=== PATIENT | male | born 1945 | race Caucasian/White ===

== ENCOUNTER 2018-08-28 14:59 | Emergency (ER) | payer MEDICARE, BC, SELFPAY ==
[2018-08-28 15:02] VITALS: BP 120/81; PULSE 78; PULSE 81; RESP 14; RESP 17; TEMP 36.7; O2SAT 96; BMI 34.8
--- NOTE | 2018-08-28 15:24 | RAD_ITS ---
STUDY: X-RAY - LEFT HAND, ATTENTION THIRD FINGER REASON FOR EXAM: Male, 73 years old. Laceration following injury. TECHNIQUE: 3 view(s) of the finger were obtained. COMPARISON: None. FINDINGS: Normal metacarpal head. Normal metacarpophalangeal joint. Normal proximal phalanx. Normal middle phalanx. Nondisplaced fracture at the tuft of the distal phalanx with overlying soft tissue swelling. Normal proximal interphalangeal joint. Normal distal interphalangeal joint. RAD/Finger(s) Min 2 Views IMPRESSION: Nondisplaced fracture at the tuft of the distal phalanx with overlying soft tissue swelling. Electronically Signed: Wilman Beaver, at 15:49 EDT , Service support ,
--- NOTE | 2018-08-28 15:34 | ED.DCSUM_ITS ---
- ER Visit Summary Date of Service: 08/28/18 Chief Complaint: Finger injury History of Present Illness: The patient is a 73 M who presents the emergency department for left middle finger injury. 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 He s tates the nail must of been partially removed from a Band-Aid. States it will not stop bleeding. He is unsure of his last tetanus (per his PCP it was 2010). Physical Examination: Afebrile vital signs stable Left middle finger shows the proximal half of the nail to still be in place and the cuticle to be stable. The distal half of the nail is gone. Is a very clean linear cut. There is nailbed laceration present. Test Results: Finger x-rays were obtained. This demonstrated a tuft fracture. Emergency Department Course and Treatment: Patient declined digital block or local lidocaine injection. The nailbed laceration was repaired using simple interrupted 5-0 Vicryl sutures. A total of 5 stitches were placed along the nailbed. He will be started on Keflex. Impression: 1. Open left middle finger distal phalanx fracture 2. Nailbed laceration with repair This note was generated with [employer] dictation software. It may contain incorrect words, spelling, and punctuation that were not noted in review of the chart prior to signing ED Disposition - Plan for ED Patient: Disposition: Home or Assisted Living Instructions: FRACTURE, Finger (Open), NAIL AVULSION, Partial Prescriptions: Cephalexin [Keflex] 500 mg PO Q6 #28 cap Prescription Printed Referrals: Sunitha Garrett MD [Primary Care Provider] - (in 2 weeks) Additional Instructions: Please leave this dressing on until Sunday. Then antibiotic ointment and keeping the wound clean and dry. Follow-up 2 weeks. Take all of the antibi otics.
[2018-08-28] MEDS: Diphth,Pertuss(Acell),Tet Vac 0.5 ML Vial IM (16:03)
[2018-08-28 16:20] VITALS: BP 108/96; PULSE 75; RESP 17
--- NOTE | 2018-08-28 16:20 | ED.RN ---
DISCHARGE INSTRUCTIONS GIVEN TO AND REVIEWED WITH PATIENT, PATIENT DENIES QUESTIONS OR CONCERNS AND VOICES UNDERSTANDING OF DISCHARGE INSTRUCTIONS. PT AMBULATES OUT OF ROOM WITHOUT DIFFICULTY.
== END 2018-08-28 16:21 | disposition home or self-care (01) ==
PROVIDERS: Emergency Provider Emergency Medicine; Family Provider Internal Medicine; PCP Internal Medicine
DX: S62.663B Nondisplaced fracture of distal phalanx of left middle finger, initial encounter for open fracture (principal); Z23 Encounter for immunization; W26.8XXA Contact with other sharp object(s), not elsewhere classified, initial encounter; Y93.89 Activity, other specified; Y92.008 Other place in unspecified non-institutional (private) residence as the place of occurrence of the external cause; Y99.8 Other external cause status
CPT/HCPCS: 11760; 73140; 90471; 90715; 99284

== ENCOUNTER → 2018-09-17 | Outpatient (CLI) | payer MEDICARE, BC, SELFPAY ==
[2018-08-28 15:02] VITALS: BMI 34.8
[2018-09-17 17:19] LABS: Absolute Lymphocyte Count 1.89 X10^3/uL (0.83-4.51); Absolute Neutrophil Count 5.3 X10^3/uL (2.0-7.7); Basophil# 0.04 X10^3/uL; Basophil% 0.5 % (0-1); Eosinophil# 0.26 X10^3/uL; Eosinophils% 3.1 % (0-5); Hematocrit 46.2 % (40-54); Hemoglobin 15.3 g/dL (13.0-16.5); Lymphocyte # 1.89 X10^3/ul (4.0); Lymphocyte % 22.7 % (19-41); Mean Corp Hgb Conc 33.1 g/dL (32-36); Mean Corpuscular Hgb 29.5 pg (27.0-32.0); Mean Platelet Vol. 10.7 fl (6.2-12.0); Monocyte# 0.76 X10^3/uL; Monocyte% 9.1 % (0-10); NRBC Flagged by Analyzer 0 % (0-5); Neutrophil # 5.32 X10^3/uL (2.7-7.7); Neutrophil % 63.9 % (47-70); Platelet Count 244 K/mm3 (150-450); RBC Distribution Width CV 13.6 % (11.6-14.6); RBC Distribution Width SD 44.5 fl (35.1-43.9); Red Blood Count 5.19 M/mm3 (4.6-6.2); White Blood Count 8.3 K/mm3 (4.4-11.0)
[2018-09-17 17:23] LABS: Erythrocyte Sedimentation Rate 16 mm/hr (0-20)
[2018-09-17 17:53] LABS: BNP,B-Type NATRIURETIC PEPTIDE 61.1 pg/mL (0-100)
[2018-09-17 19:37] LABS: ALB/GLOB Ratio 1.1 RATIO (0.9-2.4); AST(SGOT) 17 U/L (15-37); Alanine Aminotransfer ALT/SGPT 14 U/L (16-61); Albumin, Serum 3.5 g/dL (3.2-5.0); Alkaline Phosphatase 84 U/L (45-117); Anion Gap 7 (5-15); BUN 13 mg/dL (7-18); BUN/Creat Ratio 11.1 RATIO (10-20); CRP 4.91 mg/L (0.0-3.0); Calcium,Total 8.9 mg/dL (8.5-10.1); Chloride 108 mmol/L (98-107); Creatinine, Serum 1.17 mg/dL (0.70-1.30); EST Glomerular Filtration Rate 65 mL/min (>60); Est Glom Filt Rate - Afr Amer 79 mL/min (>60); Globulin 3.3 g/dL (2.2-4.2); Glucose 99 mg/dL (74-106); Potassium 4.2 mmol/L (3.5-5.1); Protein, Total 6.8 g/dL (6.4-8.2); Rheumatoid Factor < 10.0 IU/mL (<15); Sodium Level 140 mmol/L (136-145); Thyroid Stim Hormone (TSH) 1.12 uIU/mL (0.358-3.74); Uric Acid 5.1 mg/dL (3.5-7.2)
[2018-09-20 11:44] LABS: CCP IgG Antibodies 6 units (0-19)
== END | disposition home or self-care (01) ==
LOC: BFHLAB 14:53
PROVIDERS: Family Provider Family Medicine; PCP Family Medicine; Visit Provider Family Medicine
DX: R06.00 Dyspnea, unspecified (principal); M10.9 Gout, unspecified; M06.9 Rheumatoid arthritis, unspecified; R53.83 Other fatigue
CPT/HCPCS: 36415; 80053; 83880; 84443; 84550; 85025; 85652; 86140; 86200; 86431

== ENCOUNTER 2018-12-23 16:31 | Emergency (ER) | payer MEDICARE, BC, SELFPAY ==
[2018-12-23 16:32] VITALS: BP 145/75; PULSE 69; RESP 19; TEMP 36.9; O2SAT 96; BMI 35.9
--- NOTE | 2018-12-23 16:34 | EKG12_ITS ---
Test Reason : SOB DIZZY Blood Pressure : / mmHG Vent. Rate : 066 BPM Atrial Rate : 066 BPM P-R Int : 238 ms QRS Dur : 132 ms QT Int : 440 ms P-R-T Axes : 007 072 003 degrees QTc Int : 461 ms Sinus rhythm with 1st degree A-V block Non-specific intra-ventricular conduction block Abnormal ECG Confirmed by LUIZ COFFEY, SHEN ([id number]), social media editor DAWN BARKER ([id number]) on 12/25/2018 11:05:44 AM Referred By: CORNEL Confirmed By:SHEN DEE MD
--- NOTE | 2018-12-23 16:50 | RAD_ITS ---
STUDY: X-RAY CHEST REASON FOR EXAM: Male, 73 years old. Chest pain and shortness of breath TECHNIQUE: Single frontal view of the chest. COMPARISON: None. FINDINGS: Subsegmental atelectasis left lower lobe. The lungs are clear and expanded. There is no demonstrated pleural abnormality. Normal size heart. Normal mediastinum and jasmine. Normal visualized pulmonary arteries. Normal visualized aortic arch and descending thoracic aorta. Moderate scoliosis. Normal visualized ribs, clavicles, and shoulders. There is no demonstrated abnormality of the visualized soft tissue structures of the upper abdomen. RAD/Chest 1 View (Portable) IMPRESSION: Subsegmental atelectasis left lower lobe Electronically Signed: Sumanth Hansen MD at 17:44 EST , Service support ,
[2018-12-23 17:27] LABS: Absolute Lymphocyte Count 1.91 X10^3/uL (0.83-4.51); Absolute Neutrophil Count 5.1 X10^3/uL (2.0-7.7); Basophil# 0.06 X10^3/uL; Basophil% 0.7 % (0-1); Eosinophil# 0.31 X10^3/uL; Eosinophils% 3.7 % (0-5); Hematocrit 43.9 % (40-54); Hemoglobin 14.4 g/dL (13.0-16.5); Lymphocyte # 1.91 X10^3/ul (4.0); Lymphocyte % 23.1 % (19-41); Mean Corp Hgb Conc 32.8 g/dL (32-36); Mean Corpuscular Hgb 29.4 pg (27.0-32.0); Mean Corpuscular Volume 89.6 fL (80-94); Mean Platelet Vol. 10.4 fl (6.2-12.0); Monocyte# 0.82 X10^3/uL; Monocyte% 9.9 % (0-10); NRBC Flagged by Analyzer 0 % (0-5); Neutrophil # 5.12 X10^3/uL (2.7-7.7); Platelet Count 223 K/mm3 (150-450); RBC Distribution Width CV 13.4 % (11.6-14.6); RBC Distribution Width SD 43.9 fl (35.1-43.9); White Blood Count 8.3 K/mm3 (4.4-11.0)
[2018-12-23 17:35] LABS: Anion Gap 6 (5-15); BUN 11 mg/dL (7-18); BUN/Creat Ratio 10.3 RATIO (10-20); Calcium,Total 8.4 mg/dL (8.5-10.1); Chloride 108 mmol/L (98-107); Creatinine, Serum 1.07 mg/dL (0.70-1.30); EST Glomerular Filtration Rate 72 mL/min (>60); Est Glom Filt Rate - Afr Amer 87 mL/min (>60); Estimated Creatinine Clearance 66.46 ml/min; Glucose 109 mg/dL (74-106); Potassium 3.8 mmol/L (3.5-5.1); Sodium Level 142 mmol/L (136-145)
[2018-12-23 17:56] VITALS: O2SAT 97
--- NOTE | 2018-12-23 17:59 | CT_ITS ---
STUDY: CT BRAIN WITHOUT CONTRAST REASON FOR EXAM: Male, 73 years old. Leg weakness RADIATION DOSAGE (If Supplied By Facility): CTDIvol = ( 44.99 ) mGy, DLP = ( 812.98 ) mGycm TECHNIQUE: Transaxial CT imaging of the brain was performed without administration of intravenous contrast material. Individualized dose optimization techniques were used for this CT. COMPARISON: No relevant priors. FINDINGS: Normal soft tissue structures. Normal calvarium. Normal size ventricles and extra-axial spaces for the patient's age. Normal white matter tracts of the cerebral hemispheres. Normal basal ganglia and thalami. Normal brainstem. Normal cerebellum. There is no intracranial hemorrhage. There are no findings of an acute ischemic infarction. Normal visualized paranasal sinuses. CT/Brain/Head without Contrast IMPRESSION: Normal unenhanced CT scan of the brain. Electronically Signed: Sumanth Hnasen MD at 18:23 EST , Service support ,
--- NOTE | 2018-12-23 18:06 | ED.VIS.GEN ---
History of Present Illness Chief Complaint: Chest Pain Detail of Chief Complaint: Chest pain, weakness, confusion, right leg weakness Informant: Patient Onset: Today Narrative: Patient states that he got up at 230 this morning to go to the restroom and noted his right leg did not seem to want to work right. He was able to get back to bed and went to sleep. When he got up later this morning he felt dizzy which he describes as a lightheaded sensation. This is persisted throughout the day. 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 He states while he was in the middle of a task he completed he forgot what he was doing and this is very unlike him. He still has some mild dizziness. He thinks his right leg seems to be back to baseline. He did have a fracture of his right foot and has had problems with it intermittently. He states he had a headache this morning that improved after ibuprofen. He has had cold symptoms for the past 2 or 3 weeks. He thought maybe it was secondary to allergies. He also reports some mild chest pressure today. Past Medical History - Allergies and Home Meds Allergies/Adverse Reactions: Allergies Penicillins [PCN] Allergy (Verified 12/23/18 16:34) Unknown Sulfa (Sulfonamide Antibiotics) Allergy (Verified 12/23/18 16:34) Unknown Primary Care Physician: Raj Granger MD [Primary Care Provider] - As soon as possible Prior records reviewed: Yes Past Medical History: - - Reviewed Lives: Spouse/ Significant Other Smoking Status: Never smoker Review of Systems General: Denies: Chills, Fever Eyes: Denies: Visual changes - bilaterally ENT: Denies: Bilateral ear pain Cardiovascular: Reports: Chest pain. Denies: Palpitations, Heart racing Respiratory: Reports: Dyspnea. Denies: Cough Gastrointestinal: Denies: Abdominal pain, Nausea, Vomiting, Diarrhea Musculoskeletal: Denies: Neck pain, Back pain, Extremity Pain Neurological: Reports: Headache - Resolved, Weakness Allergy: Denies: Uticaria Physical Exam Vital Signs/Narrative: Vital Signs Temp Pulse Resp BP Pulse Ox 12/23/18 17:56 97 12/23/18 16:32 98.4 F 69 19 H 145/75 H 96 Inital Vital Signs reviewed: Yes General: Well nourished, Well developed Head: Normocephalic ENT: Moist mucous membranes Neck: Supple Cardiovascular: Regular rate, Regular rhythm Respiratory: No distress, CTA bilaterally Abdomen: Soft, Nontender, Normal bowel sounds Skin: Normal color Neurological: Alert, Oriented x3, Normal Strength, Normal Sensation, - - NIH equals 0 Psychological: Normal affect Diagnostic/Tx/Re-eval Impressions Chest X-Ray 12/23/18 16:50 IMPRESSION: Subsegmental atelectasis left lower lobe Electronically Signed: Sumanth Hansen MD at 17:44 EST , Service support , Brain CT 12/23/18 17:59 IMPRESSION: Normal unenhanced CT scan of the brain. Electronically Signed: Sumanth Hansen MD at 18:23 EST , Service support , 12/23/18 16:50 Chest 1 View (Portable) [RAD] Stat 12/23/18 17:59 Brain/Head without Contrast [CT] Stat Laboratory Results 12/23/18 12/23/18 17:10 17:10 WBC 8.3 RBC 4.90 Hgb 14.4 Hct 43.9 MCV 89.6 MCH 29.4 MCHC 32.8 RDW Std Deviation 43.9 RDW Coeff of Rachael 13.4 Plt Count 223 MPV 10.4 Immature Gran % (Auto) 0.600 Neut % (Auto) 62.0 Lymph % (Auto) 23.1 [place] % (Auto) 9.9 Eos % (Auto) 3.7 Baso % (Auto) 0.7 Absolute Neuts (auto) 5.1 Absolute Lymphs (auto) 1.91 Nucleated RBC % 0 Sodium 142 Potassium 3.8 Chloride 108 H Carbon Dioxide 28.0 Anion Gap 6 BUN 11 Creatinine 1.07 Estim Creat Clear Calc 66.46 Est GFR (MDRD) Af Amer 87 Est GFR (MDRD) Non-Af 72 BUN/Creatinine Ratio 10.3 Glucose 109 H Calcium 8.4 L Troponin I < 0.015 - EKG Initial EKG Interpretation: Sinus Rhythm - Sinus at 66 with a first-degree AV block. Intraventricular conduction delay noted. This is changed when compared to prior study, however previous study is from 2004. - Medical Decision Making Patient was given IV fluids here. On repeat evaluation he feels well. Test results are discussed with him. At this time his NIH is 0. Although he describes some difficulty with his right leg this morning, he has had this intermittently with his prior broken foot. I am not convinced that this was TIA type symptoms. Patient will return for any worsening symptoms or concerns. Patient and at bedside are in agreement with this plan. ED Disposition - Plan for ED Patient: Disposition: Home or Assisted Living Diagnosis: Chest pain, Weakness Instructions: CHEST PAIN, NonCardiac Referrals: Raj Granger MD [Primary Care Provider] - As soon as possible
[2018-12-23] MEDS: 0.9% Normal Saline 1,000 ML 150 ML IV (18:28)
[2018-12-23 18:29] VITALS: BP 133/85; PULSE 58; RESP 20
[2018-12-23 19:15] VITALS: BP 134/73; PULSE 61; RESP 15; O2SAT 97
== END 2018-12-23 19:15 | disposition home or self-care (01) ==
PROVIDERS: Emergency Provider Emergency Medicine; Family Provider Family Medicine; PCP Family Medicine
DX: R07.89 Other chest pain (principal); R53.1 Weakness
CPT/HCPCS: 70450; 71045; 80048; 84484; 85025; 93005; 96360; 99284; J7030; A4216

== ENCOUNTER → 2019-05-02 | Outpatient (CLI) | payer MEDICARE, BC, SELFPAY ==
[2019-05-02 12:24] LABS: Absolute Lymphocyte Count 1.59 X10^3/uL (0.83-4.51); Absolute Neutrophil Count 4.8 X10^3/uL (2.0-7.7); Basophil# 0.04 X10^3/uL; Basophil% 0.5 % (0-1); Eosinophil# 0.38 X10^3/uL; Hematocrit 44.5 % (40-54); Hemoglobin 14.5 g/dL (13.0-16.5); Lymphocyte # 1.59 X10^3/ul (4.0); Mean Corp Hgb Conc 32.6 g/dL (32-36); Mean Corpuscular Hgb 29.1 pg (27.0-32.0); Mean Corpuscular Volume 89.2 fL (80-94); Mean Platelet Vol. 10.8 fl (6.2-12.0); Monocyte# 0.68 X10^3/uL; NRBC Flagged by Analyzer 0 % (0-5); Neutrophil # 4.82 X10^3/uL (2.7-7.7); Neutrophil % 63.7 % (47-70); Platelet Count 227 K/mm3 (150-450); RBC Distribution Width CV 14.1 % (11.6-14.6); RBC Distribution Width SD 45.8 fl (35.1-43.9); Red Blood Count 4.99 M/mm3 (4.6-6.2); White Blood Count 7.6 K/mm3 (4.4-11.0)
[2019-05-02 13:02] LABS: Anion Gap 5 (5-15); BUN 13 mg/dL (7-18); BUN/Creat Ratio 13.6 RATIO (10-20); Calcium,Total 8.8 mg/dL (8.5-10.1); Chloride 106 mmol/L (98-107); Creatinine, Serum 0.96 mg/dL (0.70-1.30); EST Glomerular Filtration Rate 82 mL/min (>60); Est Glom Filt Rate - Afr Amer 99 mL/min (>60); Glucose 107 mg/dL (74-106); Potassium 4.1 mmol/L (3.5-5.1); Sodium Level 139 mmol/L (136-145); T4 Free Direct 1.06 ng/dL (0.76-1.46); Thyroid Stim Hormone (TSH) 1.13 uIU/mL (0.358-3.74); Uric Acid 5.5 mg/dL (3.5-7.2)
[2019-05-02 13:25] LABS: BNP,B-Type NATRIURETIC PEPTIDE 77.5 pg/mL (0-100)
== END | disposition home or self-care (01) ==
LOC: BFHLAB 08:20
PROVIDERS: PCP Family Medicine; Visit Provider Family Medicine
DX: I44.0 Atrioventricular block, first degree (principal); R73.01 Impaired fasting glucose; R06.00 Dyspnea, unspecified; M10.9 Gout, unspecified
CPT/HCPCS: 36415; 80048; 83880; 84439; 84443; 84550; 85025

== ENCOUNTER → 2019-09-29 09:36 | Outpatient (CLI) | payer MEDICARE, BC, SELFPAY ==
[2019-09-29 12:53] LABS: Absolute Lymphocyte Count 1.69 X10^3/uL (0.83-4.51); Absolute Neutrophil Count 5.6 X10^3/uL (2.0-7.7); Basophil# 0.06 X10^3/uL; Basophil% 0.7 % (0-1); Eosinophil# 0.27 X10^3/uL; Eosinophils% 3.2 % (0-5); Hematocrit 48.9 % (40-54); Hemoglobin 15.6 g/dL (13.0-16.5); Lymphocyte # 1.69 X10^3/ul (4.0); Lymphocyte % 20.1 % (19-41); Mean Corp Hgb Conc 31.9 g/dL (32-36); Mean Corpuscular Hgb 28.8 pg (27.0-32.0); Mean Corpuscular Volume 90.2 fL (80-94); Mean Platelet Vol. 10.6 fl (6.2-12.0); Monocyte# 0.74 X10^3/uL; Monocyte% 8.8 % (0-10); NRBC Flagged by Analyzer 0 % (0-5); Neutrophil # 5.57 X10^3/uL (2.7-7.7); Neutrophil % 66.4 % (47-70); Platelet Count 262 K/mm3 (150-450); RBC Distribution Width SD 46.2 fl (35.1-43.9); Red Blood Count 5.42 M/mm3 (4.6-6.2); White Blood Count 8.4 K/mm3 (4.4-11.0)
[2019-09-29 13:15] LABS: Hemoglobin A1c 6.3 % (3.8-5.6)
[2019-09-29 13:27] LABS: Anion Gap 7 (5-15); BUN 14 mg/dL (7-18); BUN/Creat Ratio 13.3 RATIO (10-20); Calcium,Total 9.2 mg/dL (8.5-10.1); Chloride 107 mmol/L (98-107); Cholesterol 201 mg/dL (200); Creatinine, Serum 1.05 mg/dL (0.70-1.30); EST Glomerular Filtration Rate 74 mL/min (>60); Est Glom Filt Rate - Afr Amer 89 mL/min (>60); Glucose 114 mg/dL (74-106); High Density Lipoprotein 34 mg/dL; Potassium 4.3 mmol/L (3.5-5.1); Sodium Level 139 mmol/L (136-145); T4 Free Direct 1.09 ng/dL (0.76-1.46); Thyroid Stim Hormone (TSH) 1.24 uIU/mL (0.358-3.74); Triglycerides 219 mg/dL; Very Low Density Lipoprotein 44 mg/dL (5-40)
== END ==
PROVIDERS: PCP Family Medicine; Visit Provider Family Medicine
DX: R73.01 Impaired fasting glucose (principal); E78.5 Hyperlipidemia, unspecified; I44.0 Atrioventricular block, first degree; M06.9 Rheumatoid arthritis, unspecified; R53.83 Other fatigue
CPT/HCPCS: 36415; 80048; 80061; 83036; 84439; 84443; 85025

== ENCOUNTER → 2020-04-06 05:42 | Outpatient (CLI) | payer MEDICARE, BC, SELFPAY ==
--- NOTE | 2020-04-06 12:45 | STRESSREP ---
Stress Test Report Date: 04-06-2020 Procedure: Pharmacologic stress nuclear imaging study Indications: Chest pain; shortness of breath/dyspnea on exertion; right bundle branch block Consent: Per the patient Procedure: The patient underwent pharmacologic (Regadenoson 0.4mg ) evaluation with a peak heart rate of 86 beats per minute (58%predicted maximal heart rate) and a peak blood pressure of 138/82 mmHg. The baseline ECG demonstrated sinus bradycardia; right bundle branch block pattern. The peak pharmacologic ECG demonstrated no obvious ECG changes. There were no cardiac dysrhythmias pretest, during pharmacologic infusion, or recovery. There was no complaint of chest discomfort during pharmacologic infusion or recovery. The examination was discontinued secondary to completion of protocol. Impression: 1. Pharmacologic (Regadenoson) evaluation 2. Peak pharmacologic ECG with continued right bundle branch block pattern with no obvious ECG changes. 3. There were no cardiac dysrhythmias pretest, during pharmacologic infusion, or recovery. 4. Nuclear images pending Myocardial perfusion imaging study: Technique: The patient was injected with 14.7 millicuries of technetium 99m Cardiolite and subsequently rest SPECT Cardiolite nuclear imaging was obtained in the horizontal long, vertical long, and short axis views. The patient underwent pharmacologic (Regadenoson) evaluation with a peak heart rate of 86 beats per minute (58% percent predicted maximal heart rate) and a peak blood pressure of 138/82 mmHg. The patient was injected with 44.4 millicuries of technetium 99m Cardiolite and subsequently stress SPECT Cardiolite nuclear imaging was obtained in the horizontal long, vertical long, and short axis views. A gated Cardiolite study at peak stress was obtained. Interpretation: Rest and stress SPECT Cardiolite nuclear imaging status post realignment, normalization, and attenuation correction demonstrate at rest the appearance of a small area of subtle diminished tracer uptake near the distal anteroseptal segments which status post stress appears to improve/normalize. There are similar type findings on the resting and stress polar map images. There is end systolic thickening and brightening. The gated Cardiolite study demonstrates myocardial thickening and inward wall motion. The reported LVEF is 76%. Impression: 1. Rest and stress SPECT Cardiolite nuclear imaging demonstrate myocardial perfusion changes at rest which appear to improve/normalize following stress appearing compatible shifting soft tissue attenuation/artifact with no myocardial perfusion changes considered diagnostic for associated stress-induced myocardial ischemia. 2. The gated Cardiolite study reports an LVEF of 76%. This note was generated with [employer] software. It may contain incorrect words, spelling, and punctuation that were not noted in checking the note before signing.
== END ==
PROVIDERS: PCP Family Medicine; Referring Provider Family Medicine; Visit Provider Family Medicine
DX: R07.9 Chest pain, unspecified (principal); R06.00 Dyspnea, unspecified; I45.10 Unspecified right bundle-branch block
CPT/HCPCS: 78452; 93017; A9500; A4216; J2785

== ENCOUNTER → 2020-04-13 15:02 | Outpatient (CLI) | payer MEDICARE, BC, SELFPAY ==
--- NOTE | 2020-04-13 15:05 | RAD_ITS ---
STUDY: X-RAY CHEST REASON FOR EXAM: Male, 74 years old patient with shortness of breath for several weeks TECHNIQUE: PA and lateral views of the chest. COMPARISON: Chest radiograph dated 12/23/2018. FINDINGS: The lungs are clear and hyperexpanded. There is no demonstrated pleural abnormality. Normal size heart. Normal mediastinum and jasmine. Normal visualized pulmonary arteries. Normal visualized aortic arch and descending thoracic aorta. Normal visualized thoracic spine. Normal visualized ribs, clavicles, and shoulders. There is no demonstrated abnormality of the visualized soft tissue structures of the upper abdomen. RAD/Chest PA and Lateral IMPRESSION: No radiographic evidence of acute cardiopulmonary disease. Electronically Signed: Balbina Tracy MD at 4:12 EST , Service support ,
== END ==
PROVIDERS: PCP Family Medicine; Referring Provider Family Medicine; Visit Provider Family Medicine
DX: R06.00 Dyspnea, unspecified (principal)
CPT/HCPCS: 71046

== ENCOUNTER 2020-08-30 15:57 | Observation (INO) | payer MEDICARE, BC, SELFPAY ==
[2020-08-30] VITALS (10 sets, daily range): BP systolic 131–153; BP diastolic 75–101; PULSE 60–68; RESP 16–19; TEMP 36.5–36.8; O2SAT 95–98; BMI 35.7; BMI 35.0
--- NOTE | 2020-08-30 16:31 | EKG12_ITS ---
Test Reason : CHEST PAIN Blood Pressure : / mmHG Vent. Rate : 068 BPM Atrial Rate : 068 BPM P-R Int : 220 ms QRS Dur : 142 ms QT Int : 430 ms P-R-T Axes : 154 081 195 degrees QTc Int : 457 ms Unusual P axis, possible ectopic atrial rhythm Right bundle branch block Cannot rule out Inferior infarct , age undetermined T wave abnormality, consider lateral ischemia Abnormal ECG Confirmed by LUIZ COFFEY, SHEN ([id number]), clinical editor DAWN BARKER ([id number]) on 09/01/2020 9:26:25 AM Referred By: DERRICK Confirmed By:SHEN DEE MD
--- NOTE | 2020-08-30 16:32 | ED.VIS.CHEST ---
HPI History of Present Illness Chief Complaint: Chest Pain Informant: patient Narrative Narrative: Patient is a 75-year-old male who presents to the emergency department for multiple complaints. He states he woke up this morning 3 hours later than he typically does. He felt confused whenever he woke up. Did not realize his son was in the house. He was supposed to have breakfast with other people at 7 AM they called him to check on him which she forgot about. This is unusual for him. If he felt that throughout the day started get back to normal. He tried to go to work. 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 He thought this was more sweaty than with the heat should have been causing. He did develop substernal pain that was very mild and he thought he felt some pain in his left arm as well. This lasted for maybe 45 minutes. Is now resolved. He went to his PCPs office who did an EKG and referred him to the emergency department. Patient states he did have a stress test earlier this year. He denies any history of CAD, hypertension, hyperlipidemia or diabetes. He denies a smoking history. No leg swelling or calf pain. No recent illness. [facility] Medical History (Updated 08/30/20 @ 21:[address] Mook Bo, DO) 1st degree AV block Back pain GERD (gastroesophageal reflux disease) Gout High blood pressure Impaired hearing Rheumatoid arthritis Home Medications allopurinol 300 mg PO DAILY 12/23/18 [History Last Taken 08/30/20] aspirin 81 mg PO DAILY 12/23/18 [History Last Taken 08/30/20] yjxfrfrr-fca-QG-lycopen-lutein 1 ea PO DAILY 12/23/18 [History Last Taken 08/30/20] omeprazole 1 tab PO DAILY 12/23/18 [History Last Taken 08/30/20] cholecalciferol (vitamin D3) [Vitamin D3] 125 mcg PO DAILY 08/30/20 [History Last Taken 08/30/20] mecobalamin (vitamin B12) [B12 Active] 1,000 mcg PO DAILY 08/30/20 [History Last Taken 08/30/20] Allergy/AdvReac Type Severity Reaction Status Date / Time Penicillins [PCN] Allergy Unknown Verified 08/30/20 16:03 Sulfa (Sulfonamide Allergy Unknown Verified 08/30/20 16:03 Antibiotics) Family History Father CVA (cerebral vascular accident) Social History Smoking Status: Never smoker ROS ROS ED Constitutional Constitutional ED: Denies chills or fever(s) Eyes Eyes: Denies change in vision ENT ENT ED: Denies epistaxis or rhinorrhea Cardiovascular Cardiovascular: Reports chest pain; Denies palpitations Respiratory/Chest Respiratory/Chest: Denies cough, dyspnea or dyspnea on exertion Gastrointestinal Gastrointestinal: Denies abdominal pain, diarrhea, nausea or vomiting Genitourinary Genitourinary ED: Denies dysuria, hematuria or urinary frequency Musculoskeletal Musculoskeletal: Denies back pain or neck pain Integumentary Denies rash Neurologic Neurologic: Denies dizziness, headache(s) or weakness EXAM Physical Exam Const Vital Signs: 08/30/20 15:58 08/30/20 16:30 08/30/20 16:31 Temperature 97.8 F Temperature Source Oral Pulse Rate 67 67 Respiratory Rate 19 H 17 Respiratory Effort Normal Non-Labored Respiratory Pattern Normal Blood Pressure 153/92 H 149/101 H Blood Pressure Mean 112 117 Pulse Ox 98 95 98 Oxygen Delivery Method Room Air Room Air Room Air 08/30/20 17:57 Temperature Temperature Source Pulse Rate 64 Respiratory Rate 17 Respiratory Effort Respiratory Pattern Blood Pressure 135/92 H Blood Pressure Mean 106 Pulse Ox 97 Oxygen Delivery Method Room Air Positive well nourished and well developed General Appearance ED: well developed and NAD HEENT Reports normocephalic, head/scalp atraumatic and moist mucous membranes Eyes PERRL and EOMs intact bilaterally Neck supple Resp normal respiratory effort and clear to auscultation bilaterally Auscultation: Negative for rales, rhonchi or wheezes Cardio regular rate, regular rhythm and no murmurs GI normal to inspection, nondistended, normoactive bowel sounds and non-tender Palpation: soft; Negative for guarding or rebound tenderness present Extremity normal to inspection General Extremety ED: Negative for edema or tenderness General Extremity: Negative for edema Neuro oriented x3, CN's II-XII intact bilaterally and no sensory deficits noted Sensorium / Orientation: alert Motor Exam: strength 5/5 throughout Psych mental status grossly normal Skin no rashes or lesions noted Heart Score History: Slightly/Non-Suspicious ECG: Nonspecific Repolarization Age: >/= 65 years Risk Factors: 1 or 2 Risk Factors Score: 4 MDM MDM MDM Narrative Medical decision making narrative: Patient presents to the ED for an episode of chest pain that lasted 45 minutes. He became diaphoretic with this. He states he also woke up confused this morning which has since resolved. He is no longer having any chest pain. On arrival to the ED is mildly hypertensive but otherwise normal vital signs. He has benign physical exam. EKG obtained along with basic lab work and chest x-ray. Patient's troponin is not elevated. He is not anemic. No significant abnormality on work-up. Chest x-ray does not reveal acute cardiopulmonary abnormality. This was interpreted by myself. Given his EKG changes, episode of chest pain and elevated heart score he will be brought into the hospital for further evaluation and management. He otherwise has remained asymptomatic throughout ED stay. He is agreeable with this plan. Radiography Diagnostic Testing: Radiology Impression Chest X-Ray 08/30/20 16:33 IMPRESSION: No acute radiographic abnormalities. Electronically Signed: Antonio Oconnor MD at 17:02 EDT Tel , Service support , EKG Initial EKG: Attestation: I personally reviewed and interpreted this EKG as follows: (Rate of 68 bpm and normal sinus rhythm. Prolonged QRS of 142 with right bundle branch block. There are T wave inversions in the anterior lateral leads. No significant ST elevations or depressions.) Discharge Plan Dx/Rx/DC Orders Clinical Impression: Chest pain Disposition Disposition: Acute Care Hospital [facility] Discharge Date/Time: 08/30/20 18:39
--- NOTE | 2020-08-30 16:33 | RAD_ITS ---
INDICATION: chest pain EXAMINATION/TECHNIQUE: X-RAY - XR Chest 1 View COMPARISON: 04/13/2020. FINDINGS: The lungs are clear. The cardiomediastinal silhouette is unremarkable. No pleural effusion or pneumothorax. No acute osseous abnormalities. RAD/Chest 1 View (Portable) IMPRESSION: No acute radiographic abnormalities. Electronically Signed: Antonio Oconnor MD at 17:02 EDT Tel , Service support ,
[2020-08-30 16:44] LABS: Absolute Lymphocyte Count 2.19 X10^3/uL (0.83-4.51); Absolute Neutrophil Count 5.8 X10^3/uL (2.0-7.7); Basophil# 0.06 X10^3/uL; Basophil% 0.6 % (0-1); Eosinophil# 0.43 X10^3/uL; Eosinophils% 4.4 % (0-5); Hematocrit 44.9 % (40-54); Hemoglobin 14.6 g/dL (13.0-16.5); Lymphocyte # 2.19 X10^3/ul (0.83-4.51); Lymphocyte % 22.6 % (19-41); Mean Corp Hgb Conc 32.5 g/dL (32-36); Mean Corpuscular Hgb 29.1 pg (27.0-32.0); Mean Corpuscular Volume 89.4 fL (80-94); Mean Platelet Vol. 10.7 fl (6.2-12.0); Monocyte% 11.4 % (0-10); NRBC Flagged by Analyzer 0 % (0-5); Neutrophil # 5.83 X10^3/uL (2.7-7.7); Neutrophil % 60.2 % (47-70); Platelet Count 251 K/mm3 (150-450); RBC Distribution Width CV 13.7 % (11.6-14.6); RBC Distribution Width SD 44.4 fl (35.1-43.9); Red Blood Count 5.02 M/mm3 (4.6-6.2); White Blood Count 9.7 K/mm3 (4.4-11.0)
[2020-08-30 17:03] LABS: Anion Gap 5 (5-15); BUN 13 mg/dL (7-18); BUN/Creat Ratio 12.3 RATIO (10-20); Chloride 105 mmol/L (98-107); Creatinine, Serum 1.06 mg/dL (0.70-1.30); EST Glomerular Filtration Rate 73 mL/min (>60); Est Glom Filt Rate - Afr Amer 88 mL/min (>60); Estimated Creatinine Clearance 65.12 ml/min; Glucose 109 mg/dL (74-106); Potassium 3.8 mmol/L (3.5-5.1); Sodium Level 138 mmol/L (136-145)
--- NOTE | 2020-08-30 18:09 | EKG12_ITS ---
Test Reason : AM EKG Blood Pressure : / mmHG Vent. Rate : 054 BPM Atrial Rate : 054 BPM P-R Int : 230 ms QRS Dur : 134 ms QT Int : 506 ms P-R-T Axes : 030 097 062 degrees QTc Int : 479 ms Sinus bradycardia with 1st degree A-V block Right bundle branch block Abnormal ECG Confirmed by LUIZ CFOFEY, SHEN ([id number]), television news video editor DAWN BARKER ([id number]) on 09/01/2020 11:53:08 AM Referred By: NAKIA Confirmed By:SHEN DEE MD
--- NOTE | 2020-08-30 18:14 | PCM.HP.STD ---
HPI - General General Date of Admission: 08/30/20 Date of Service: 08/30/20 Chief Complaint: Chest pain HPI Narrative JET MENDEZ, is a 75 M who presents who presented with chest pain. Patient symptoms started on the morning of his presentation. Patient states he normally wakes up around 4 AM however he overslept today and woke up around 715. He woke up feeling very tired. The patient's was with him patient was also reported to be confused. He later developed some shortness of breath as well as chest pain located under the left armpit radiating to his back. He called his primary care physician was asked to come to the office. EKG obtained demonstrated significant T wave changes patient subsequently sent to the ED. Initial set of cardiac enzymes obtained came back negative admitted to a monitored bed with consultation placed to cardiology [facility] Medical History 1st degree AV block Back pain GERD (gastroesophageal reflux disease) Gout High blood pressure Impaired hearing Rheumatoid arthritis Home Medications allopurinol 300 mg PO DAILY 12/23/18 [History Last Taken Unknown] aspirin 81 mg PO DAILY 12/23/18 [History Last Taken Unknown] xmnoxdkb-efk-LI-lycopen-lutein 1 ea PO DAILY 12/23/18 [History Last Taken Unknown] omeprazole 1 tab PO DAILY 12/23/18 [History Last Taken Unknown] cholecalciferol (vitamin D3) [Vitamin D3] 125 mcg PO DAILY 08/30/20 [History Last Taken Unknown] mecobalamin (vitamin B12) [B12 Active] 1,000 mcg PO DAILY 08/30/20 [History Last Taken Unknown] Allergy/AdvReac Type Severity Reaction Status Date / Time Penicillins [PCN] Allergy Unknown Verified 08/30/20 16:03 Sulfa (Sulfonamide Allergy Unknown Verified 08/30/20 16:03 Antibiotics) Family History (Updated 08/30/20 @ 18:[address] Theodore Hawkins MD) Father CVA (cerebral vascular accident) Social History Smoking Status: Never smoker ROS ROS Narrative GENERAL: denies fever, chills, HEENT: denies headache, sinus congestion, RESPIRATORY: denies cough, sputum production, CARDIAC: t pain, palpitations, GASTROINTESTINAL: denies abdominal pain, GENITOURINARY: denies dysuria, urgency, EXTREMITY: denies swelling MUSCULOSKELETAL: denies current joint pain or tenderness NEUROLOGIC: denies focal numbness, weakness, tingling HEMATOLOGIC: denies easy bruising and/or hemorrhage INTEGUMENT: denies rashes PSYCHIATRIC: denies suicidal or homicidal ideation Vital Signs Vital Signs Vital Signs: 08/30/20 15:58 08/30/20 16:30 08/30/20 16:31 Temperature 97.8 F Temperature Source Oral Pulse Rate 67 67 Respiratory Rate 19 H 17 Respiratory Effort Normal Non-Labored Respiratory Pattern Normal Blood Pressure 153/92 H 149/101 H Blood Pressure Mean 112 117 Pulse Ox 98 95 98 Oxygen Delivery Method Room Air Room Air Room Air 08/30/20 17:57 Temperature Temperature Source Pulse Rate 64 Respiratory Rate 17 Respiratory Effort Respiratory Pattern Blood Pressure 135/92 H Blood Pressure Mean 106 Pulse Ox 97 Oxygen Delivery Method Room Air Weight Weight: 116.2 kg Body Mass Index (BMI) 35.7 Physical Exam Narrative GENERAL: cooperative HEENT: Atraumatic; EYES; Anicteric, Normal Conjunctiva NECK; supple, normal thyroid, RESPIRATORY: Diminished to auscultation CARDIOVASCULAR: Regular S1 S2, GI: soft, normoactive bowel sounds, : No Renal angle tenderness; EXTREMITIES: No edema, no clubbing, MUSCULOSKELETAL: no muscle waisting NEURO: Awake; no lateralizing signs. SKIN: No Rash PSYCH; Flat affect Results Lab / Micro Data Result Diagrams: 08/30/20 Unknown 08/30/20 Unknown Labs: Laboratory Results - last 24 hr 08/30/20 : WBC 9.7, RBC 5.02, Hgb 14.6, Hct 44.9, MCV 89.4, MCH 29.1, MCHC 32.5, RDW Std Deviation 44.4 H, RDW Coeff of Rachael 13.7, Plt Count 251, MPV 10.7, Immature Gran % (Auto) 0.800, Neut % (Auto) 60.2, Lymph % (Auto) 22.6, [place] % (Auto) 11.4 H, Eos % (Auto) 4.4, Baso % (Auto) 0.6, Absolute Neuts (auto) 5.8, Absolute Lymphs (auto) 2.19, Nucleated RBC % 0 08/30/20 : Sodium 138, Potassium 3.8, Chloride 105, Carbon Dioxide 28.0, Anion Gap 5, BUN 13, Creatinine 1.06, Estim Creat Clear Calc 65.12, Est GFR (MDRD) Af Amer 88, Est GFR (MDRD) Non-Af 73, BUN/Creatinine Ratio 12.3, Glucose 109 H, Calcium 9.0, Troponin I High Sens 6.0 Radiology Impression Chest X-Ray 08/30/20 16:33 IMPRESSION: No acute radiographic abnormalities. Electronically Signed: Antonio Oconnor MD at 17:02 EDT Tel , Service support , Assessment & Plan Assessment/Plan (1) Pinched thoracic nerve root: PLAN: Patient is a 75-year-old gentleman presented with chest pain 1. Chest pain ?Patient underwent a nuclear stress test in March 2020 which was negative for stress-induced ischemia presented with typical symptoms with EKG changes. Admitted to a monitored bed as a case of unstable angina. As part of his management ordered serial cardiac enzymes, was placed on statin therapy therapeutic Lovenox beta-blockers. Ordered 2D echo as part of patient's management 2. Gout ?Patient is on allopurinol did continue 3. GERD ?On PPI 4. Obesity with BMI of 35.7 ?Weight loss advised 5. DVT prophylaxis ?Patient is on therapeutic Lovenox Advance planning; did discuss with the patient and family regarding advanced directives as well as CODE STATUS. Did explain the various scenarios involved ( FULL CODE, DNR CCA, DNR CCA with no intubation, and DNR CC and what each meant) patient elected to remain full code with CPR and intubation if needed. Order was placed. Time spent on discussion 18 minutes. Charges/Coding Visit Charges OBSV E&M: 59597 Initial observation care L3 Procedures Hospitalists Procedures: 99327 Advncd Care Plan 30 Min
[2020-08-30] MEDS: Allopurinol 300 MG Tablet PO (19:03)
[2020-08-30] MEDS: Aspirin 81 MG TAB.CHEW PO (19:03)
[2020-08-30 19:23] LABS: Troponin-I HS 7.4 pg/mL (3.0-78.5)
[2020-08-30] MEDS: Metoprolol Tartrate 25 MG Tablet PO (21:10)
[2020-08-30] MEDS: Atorvastatin Calcium 80 MG Tablet PO (21:10)
[2020-08-30] MEDS: Enoxaparin 120 MG/0.8 ML Syringe SC (21:10)
--- NOTE | 2020-08-30 21:19 | CON.PCM.CA_ITS ---
Assessment & Plan Assessment/Plan (1) Chest pressure: PLAN: The patient presents with chest pressure and significant fatigue which is concerning for recent onset angina. Though he had a stress test less than 6 months ago with no acute changes on the pharmacologic stress test based on his new finding and presentation it may be helpful to definitively exclude obstructive coronary disease. His blood pressure is borderline abnormal and he does have a low HDL. I have discussed the above with him the risk benefits al ternatives he understands and agrees to proceed with a cardiac catheterization in a.m. Depending on the findings further recommendations will be made. (2) High blood pressure: PLAN: He does have borderline elevated blood pressure without a previous diagnosis of hypertension. We will continue to monitor his blood pressure through the night. Risk factor modification agents including blood pressure medication may be administered as necessary. Thank you for allowing me to participate in the care of your patient. Please don't hesitate to call if any issues arise. HPI Consult Data Date of Consult: 08/30/20 HPI Narrative HPI Narrative: JET MENDEZ, is a 75 M who presents to the emergency room with significant fatigue as well as chest discomfort. He says that he has been fatigued over the last few months but more importantly yesterday he missed his usual waking up time. He also appeared to be mildly confused and disoriented this morning. He then started experiencing some chest discomfort described as a heaviness as well as tingling in his left arm. He decided to seek medical attention went to his primary physician's office and an EKG was done and he was told that he was having an acute coronary syndrome and was taken by ambulance to the emergency room. In the emergency room he was noted to be fairly stable an EKG was done which demonstrated a right bundle branch block. No acute changes were noted. He had previously had a pharmacologic stress test in March of this year because of fatigue. He has had no dizziness or diaphoresis no near syncope or syncope. He has been compliant with his medications. [facility] Medical History (Updated 08/30/20 @ 21:[address] Juan Diego Haynes MD) 1st degree AV block Back pain GERD (gastroesophageal reflux disease) Gout High blood pressure Impaired hearing Rheumatoid arthritis Home Medications allopurinol 300 mg PO DAILY 12/23/18 [History Last Taken 08/30/20] aspirin 81 mg PO DAILY 12/23/18 [History Last Taken 08/30/20] juwwzqxq-thu-VC-lycopen-lutein 1 ea PO DAILY 12/23/18 [History Last Taken 08/30/20] omeprazole 1 tab PO DAILY 12/23/18 [History Last Taken 08/30/20] cholecalciferol (vitamin D3) [Vitamin D3] 125 mcg PO DAILY 08/30/20 [History Last Taken 08/30/20] mecobalamin (vitamin B12) [B12 Active] 1,000 mcg PO DAILY 08/30/20 [History Last Taken 08/30/20] Allergy/AdvReac Type Severity Reaction Status Date / Time Penicillins [PCN] Allergy Unknown Verified 08/30/20 16:03 Sulfa (Sulfonamide Allergy Unknown Verified 08/30/20 16:03 Antibiotics) Family History Father CVA (cerebral vascular accident) Social History Smoking Status: Never smoker ROS Constitutional Constitutional: Denies fever(s) or weight loss Eyes Eyes: Reports systems reviewed and no addt'l complaints, except as documented ENT HEENT: Reports systems reviewed and no addt'l complaints, except as documented Cardiovascular Cardiovascular: Reports other Respiratory/Chest Respiratory/Chest: Reports other Gastrointestinal Gastrointestinal: Denies change in bowel habits, nausea, vomiting or weight changes Genitourinary Genitourinary: Denies difficulty urinating Musculoskeletal Musculoskeletal: Denies joint stiffness or muscle weakness Integumentary Integumentary: Denies lesions Neurologic Neurologic: Denies dizziness or syncope Psychiatric Psychiatric: Denies anxiety Endocrine Endocrinology: Denies excessive sweating or fatigue Hematologic/Lymphatic Hematologic/Lymphatic: Denies anemia Allergic/Immunologic Allergic/Immunologic: Denies seasonal rhinorrhea Physical Exam Const oriented x3 and healthy appearing Orientation / Consciousness: awake HEENT normocephalic Eyes PERRL and conjunctivae normal Neck supple, no JVD and no carotid bruits Chest inspection of chest normal Resp normal respiratory effort and clear to auscultation bilaterally Cardio Palpation: normal PMI Rate: regular rate Rhythm: regular rhythm Heart Sounds: S1 normal and S2 normal Peripheral Pulses: pulses 2+ throughout GI normal to inspection, nondistended, normoactive bowel sounds Extremity normal to inspection and no clubbing, cyanosis or edema Psych mental status grossly normal Objective Data Vital Signs: Vital Signs Temp Pulse Resp BP Pulse Ox 97.7 F L 60 17 131/75 H 95 08/30/20 18:55 08/30/20 21:10 08/30/20 18:55 08/30/20 21:10 08/30/20 19:48 Oxygen Delivery Method Room Air Weight: 251 lb 8 oz Body Mass Index (BMI) 35.0 Lab / Micro Data Result Diagrams: 08/30/20 Unknown 08/30/20 Unknown Labs: Laboratory Results - last 24 hr 08/30/20 18:45: Troponin I High Sens 7.4 08/30/20 : WBC 9.7, RBC 5.02, Hgb 14.6, Hct 44.9, MCV 89.4, MCH 29.1, MCHC 32.5, RDW Std Deviation 44.4 H, RDW Coeff of Rachael 13.7, Plt Count 251, MPV 10.7, Immature Gran % (Auto) 0.800, Neut % (Auto) 60.2, Lymph % (Auto) 22.6, [place] % (Auto) 11.4 H, Eos % (Auto) 4.4, Baso % (Auto) 0.6, Absolute Neuts (auto) 5.8, Absolute Lymphs (auto) 2.19, Nucleated RBC % 0 08/30/20 : Sodium 138, Potassium 3.8, Chloride 105, Carbon Dioxide 28.0, Anion Gap 5, BUN 13, Creatinine 1.06, Estim Creat Clear Calc 65.12, Est GFR (MDRD) Af Amer 88, Est GFR (MDRD) Non-Af 73, BUN/Creatinine Ratio 12.3, Glucose 109 H, Calcium 9.0, Troponin I High Sens 6.0 Cardiology Labs/Tests 08/30/20 : WBC 9.7, RBC 5.02, Hgb 14.6, Hct 44.9, MCV 89.4, MCH 29.1, MCHC 32.5, Plt Count 251, MPV 10.7, Immature Gran % (Auto) 0.800, Neut % (Auto) 60.2, Lymph % (Auto) 22.6, [place] % (Auto) 11.4 H, Eos % (Auto) 4.4, Baso % (Auto) 0.6, Absolute Neuts (auto) 5.8, Nucleated RBC % 0 07/12/21 : Sodium 138, Potassium 3.8, Chloride 105, Carbon Dioxide 28.0, Anion Gap 5, BUN 13, Creatinine 1.06, Est GFR (MDRD) Af Amer 88, Est GFR (MDRD) Non-Af 73, BUN/Creatinine Ratio 12.3, Glucose 109 H, Calcium 9.0 Rhythm: EKG: Normal sinus rhythm with a right bundle branch block ECHO: Stress Test: March 2020 demonstrated no evidence of ischemia Cardiac Cath: PCI: CT Surgery: Holter monitor: EPS: PPM: CXR: Chest CT Scan: Radiography Diagnostic Testing: Radiology Impression Chest X-Ray 08/30/20 16:33 IMPRESSION: No acute radiographic abnormalities. Electronically Signed: Antonio Oconnor MD at 17:02 EDT Tel , Service support ,
[2020-08-30] MEDS: 0.9% Saline Lock 10 ML Syringe IV (21:26)
[2020-08-30 21:44] LABS: Troponin-I HS 6.4 pg/mL (3.0-78.5)
[2020-08-31] VITALS (11 sets, daily range): BP systolic 105–122; BP diastolic 69–90; PULSE 52–58; RESP 14–18; TEMP 36.2–36.8; O2SAT 92–97
[2020-08-31 01:17] LABS: Troponin-I HS 6.8 pg/mL (3.0-78.5)
--- NOTE | 2020-08-31 05:55 | EKG12_ITS ---
Test Reason : CP ADMISSION Blood Pressure : / mmHG Vent. Rate : 063 BPM Atrial Rate : 063 BPM P-R Int : 224 ms QRS Dur : 146 ms QT Int : 448 ms P-R-T Axes : 031 097 -22 degrees QTc Int : 458 ms Sinus rhythm with 1st degree A-V block Right bundle branch block T wave abnormality, consider inferolateral ischemia Abnormal ECG Confirmed by LUIZ COFFEY, SHEN ([id number]), graphics editor DAWN BARKER ([id number]) on 09/01/2020 11:54:27 AM Referred By: NAKIA Confirmed By:SHEN DEE MD
[2020-08-31 06:11] LABS: Absolute Lymphocyte Count 1.99 X10^3/uL (0.83-4.51); Absolute Neutrophil Count 4.5 X10^3/uL (2.0-7.7); Basophil# 0.06 X10^3/uL; Basophil% 0.8 % (0-1); Eosinophil# 0.52 X10^3/uL; Eosinophils% 6.6 % (0-5); Hematocrit 44.4 % (40-54); Hemoglobin 14.4 g/dL (13.0-16.5); Lymphocyte # 1.99 X10^3/ul (0.83-4.51); Lymphocyte % 25.1 % (19-41); Mean Corp Hgb Conc 32.4 g/dL (32-36); Mean Corpuscular Volume 89.3 fL (80-94); Mean Platelet Vol. 10.4 fl (6.2-12.0); Monocyte# 0.78 X10^3/uL; Monocyte% 9.8 % (0-10); NRBC Flagged by Analyzer 0 % (0-5); Neutrophil # 4.51 X10^3/uL (2.7-7.7); Neutrophil % 56.8 % (47-70); Platelet Count 222 K/mm3 (150-450); RBC Distribution Width CV 13.6 % (11.6-14.6); RBC Distribution Width SD 44.2 fl (35.1-43.9); Red Blood Count 4.97 M/mm3 (4.6-6.2); White Blood Count 7.9 K/mm3 (4.4-11.0)
[2020-08-31] MEDS: Aspirin 81 MG TAB.CHEW PO (06:49)
[2020-08-31 07:01] LABS: AST(SGOT) 16 U/L (15-37); Alanine Aminotransfer ALT/SGPT 14 U/L (16-61); Albumin, Serum 3.2 g/dL (3.2-5.0); Alkaline Phosphatase 82 U/L (45-117); Anion Gap 5 (5-15); BUN 13 mg/dL (7-18); BUN/Creat Ratio 13.4 RATIO (10-20); Calcium,Total 8.6 mg/dL (8.5-10.1); Chloride 106 mmol/L (98-107); Creatinine, Serum 0.97 mg/dL (0.70-1.30); EST Glomerular Filtration Rate 80 mL/min (>60); Est Glom Filt Rate - Afr Amer 97 mL/min (>60); Estimated Creatinine Clearance 71.16 ml/min; Globulin 3.2 g/dL (2.2-4.2); Glucose 120 mg/dL (74-106); Phosphorus 3.5 mg/dL (2.5-4.9); Potassium 4.5 mmol/L (3.5-5.1); Protein, Total 6.4 g/dL (6.4-8.2); Sodium Level 139 mmol/L (136-145)
--- NOTE | 2020-08-31 07:21 | PN.HOSP_ITS ---
Subjective Subjective Patient scheduled to undergo left heart catheterization Objective Data Objective Data Vital Signs: Vital Signs Temp Pulse Resp BP Pulse Ox 97.7 F L 52 L 16 122/69 H 97 08/31/20 06:52 08/31/20 07:08 08/31/20 06:52 08/31/20 07:08 08/31/20 06:52 Oxygen Delivery Method Room Air Weight: 114.078 kg Body Mass Index (BMI) 35.0 Intake & Output: Intake and Output for Last 24 Hours 08/29/20 08/30/20 08/31/20 23:59 23:59 23:59 Intake Total 240 / 240 Balance 240 / 240 Lab / Micro Data Result Diagrams: 08/31/20 05:50 08/31/20 05:50 Labs: Laboratory Results - last 24 hr 08/30/20 18:45: Troponin I High Sens 7.4 08/30/20 20:47: Troponin I High Sens 6.4 08/30/20 : WBC 9.7, RBC 5.02, Hgb 14.6, Hct 44.9, MCV 89.4, MCH 29.1, MCHC 32.5, RDW Std Deviation 44.4 H, RDW Coeff of Rachael 13.7, Plt Count 251, MPV 10.7, Immature Gran % (Auto) 0.800, Neut % (Auto) 60.2, Lymph % (Auto) 22.6, [place] % (Auto) 11.4 H, Eos % (Auto) 4.4, Baso % (Auto) 0.6, Absolute Neuts (auto) 5.8, Absolute Lymphs (auto) 2.19, Nucleated RBC % 0 08/30/20 : Sodium 138, Potassium 3.8, Chloride 105, Carbon Dioxide 28.0, Anion Gap 5, BUN 13, Creatinine 1.06, Estim Creat Clear Calc 65.12, Est GFR (MDRD) Af Amer 88, Est GFR (MDRD) Non-Af 73, BUN/Creatinine Ratio 12.3, Glucose 109 H, Calcium 9.0, Troponin I High Sens 6.0 08/31/20 00:53: Troponin I High Sens 6.8 08/31/20 05:50: WBC 7.9, RBC 4.97, Hgb 14.4, Hct 44.4, MCV 89.3, MCH 29.0, MCHC 32.4, RDW Std Deviation 44.2 H, RDW Coeff of Rachael 13.6, Plt Count 222, MPV 10.4, Immature Gran % (Auto) 0.900, Neut % (Auto) 56.8, Lymph % (Auto) 25.1, [place] % (Auto) 9.8, Eos % (Auto) 6.6 H, Baso % (Auto) 0.8, Absolute Neuts (auto) 4.5, Absolute Lymphs (auto) 1.99, Nucleated RBC % 0 08/31/20 05:50: Sodium 139, Potassium 4.5, Chloride 106, Carbon Dioxide 28.0, Anion Gap 5, BUN 13, Creatinine 0.97, Estim Creat Clear Calc 71.16, Est GFR (MDRD) Af Amer 97, Est GFR (MDRD) Non-Af 80, BUN/Creatinine Ratio 13.4, Glucose 120 H, Calcium 8.6, Phosphorus 3.5, Total Bilirubin 1.40 H, AST 16, ALT 14 L, Alkaline Phosphatase 82, Total Protein 6.4, Albumin 3.2, Globulin 3.2, Albumin/Globulin Ratio 1.0 Radiography Diagnostic Testing: Radiology Impression Chest X-Ray 08/30/20 16:33 IMPRESSION: No acute radiographic abnormalities. Electronically Signed: Antonio Oconnor MD at 17:02 EDT Tel , Service support , Physical Exam Narrative GENERAL: cooperative HEENT: Atraumatic; EYES; Anicteric, Normal Conjunctiva NECK; supple, normal thyroid, RESPIRATORY: Diminished to auscultation CARDIOVASCULAR: Regular S1 S2, GI: soft, normoactive bowel sounds, : No Renal angle tenderness; EXTREMITIES: No edema, no clubbing, MUSCULOSKELETAL: no muscle waisting NEURO: Awake; no lateralizing signs. SKIN: No Rash PSYCH; Flat affect Assessment & Plan Assessment/Plan (1) Pinched thoracic nerve root: PLAN: Patient is a 75-year-old gentleman presented with chest pain 1. Chest pain ?Patient underwent a nuclear stress test in March 2020 which was negative for stress-induced ischemia presented with typical symptoms with EKG changes. Admitted to a monitored bed as a case of unstable angina. As part of his management ordered serial cardiac enzymes, was placed on statin therapy therapeutic Lovenox beta-blockers. Ordered 2D echo as part of patient's m anagement 2. Gout ?Patient is on allopurinol did continue 3. GERD ?On PPI 4. Obesity with BMI of 35.7 ?Weight loss advised 5. DVT prophylaxis ?Patient is on therapeutic Lovenox Advance planning; did discuss with the patient and family regarding advanced directives as well as CODE STATUS. Did explain the various scenarios involved ( FULL CODE, DNR CCA, DNR CCA with no intubation, and DNR CC and what each meant) patient elected to remain full code with CPR and intubation if needed. Order was placed. Time spent on discussion 18 minutes. Charges/Coding Visit Charges OBSV E&M: 85310 Subsequent observation care L2
--- NOTE | 2020-08-31 08:25 | PN.CARD_ITS ---
Subjective Subjective Patient seen and evaluated. Appears to be doing well. Underwent cardiac catheterization this morning. Objective Data Vital Signs: Vital Signs Temp Pulse Resp BP Pulse Ox 97.7 F L 52 L 16 122/69 H 97 08/31/20 06:52 08/31/20 07:08 08/31/20 06:52 08/31/20 07:08 08/31/20 06:52 Oxygen Delivery Method Room Air Weight: 251 lb 8 oz Body Mass Index (BMI) 35.0 Intake & Output: Intake and Output for Last 24 Hours 08/29/20 08/30/20 08/31/20 23:59 23:59 23:59 Intake Total 240 / 240 Balance 240 / 240 Lab / Micro Data Result Diagrams: 08/31/20 05:50 08/31/20 05:50 Labs: Laboratory Results - last 24 hr 08/30/20 18:45: Troponin I High Sens 7.4 08/30/20 20:47: Troponin I High Sens 6.4 08/30/20 : WBC 9.7, RBC 5.02, Hgb 14.6, Hct 44.9, MCV 89.4, MCH 29.1, MCHC 32.5, RDW Std Deviation 44.4 H, RDW Coeff of Rachael 13.7, Plt Count 251, MPV 10.7, Immature Gran % (Auto) 0.800, Neut % (Auto) 60.2, Lymph % (Auto) 22.6, [place] % (Auto) 11.4 H, Eos % (Auto) 4.4, Baso % (Auto) 0.6, Absolute Neuts (auto) 5.8, Absolute Lymphs (auto) 2.19, Nucleated RBC % 0 08/30/20 : Sodium 138, Potassium 3.8, Chloride 105, Carbon Dioxide 28.0, Anion Gap 5, BUN 13, Creatinine 1.06, Estim Creat Clear Calc 65.12, Est GFR (MDRD) Af Amer 88, Est GFR (MDRD) Non-Af 73, BUN/Creatinine Ratio 12.3, Glucose 109 H, Calcium 9.0, Troponin I High Sens 6.0 08/31/20 00:53: Troponin I High Sens 6.8 08/31/20 05:50: WBC 7.9, RBC 4.97, Hgb 14.4, Hct 44.4, MCV 89.3, MCH 29.0, MCHC 32.4, RDW Std Deviation 44.2 H, RDW Coeff of Rachael 13.6, Plt Count 222, MPV 10.4, Immature Gran % (Auto) 0.900, Neut % (Auto) 56.8, Lymph % (Auto) 25.1, [place] % (Auto) 9.8, Eos % (Auto) 6.6 H, Baso % (Auto) 0.8, Absolute Neuts (auto) 4.5, Absolute Lymphs (auto) 1.99, Nucleated RBC % 0 08/31/20 05:50: Sodium 139, Potassium 4.5, Chloride 106, Carbon Dioxide 28.0, An ion Gap 5, BUN 13, Creatinine 0.97, Estim Creat Clear Calc 71.16, Est GFR (MDRD) Af Amer 97, Est GFR (MDRD) Non-Af 80, BUN/Creatinine Ratio 13.4, Glucose 120 H, Calcium 8.6, Phosphorus 3.5, Total Bilirubin 1.40 H, AST 16, ALT 14 L, Alkaline Phosphatase 82, Total Protein 6.4, Albumin 3.2, Globulin 3.2, Albumin/Globulin Ratio 1.0 Cardiology Labs/Tests 08/30/20 : WBC 9.7, RBC 5.02, Hgb 14.6, Hct 44.9, MCV 89.4, MCH 29.1, MCHC 32.5, Plt Count 251, MPV 10.7, Immature Gran % (Auto) 0.800, Neut % (Auto) 60.2, Lymph % (Auto) 22.6, [place] % (Auto) 11.4 H, Eos % (Auto) 4.4, Baso % (Auto) 0.6, Absolute Neuts (auto) 5.8, Nucleated RBC % 0 08/30/20 : Sodium 138, Potassium 3.8, Chloride 105, Carbon Dioxide 28.0, Anion Gap 5, BUN 13, Creatinine 1.06, Est GFR (MDRD) Af Amer 88, Est GFR (MDRD) Non-Af 73, BUN/Creatinine Ratio 12.3, Glucose 109 H, Calcium 9.0 08/31/20 05:50: WBC 7.9, RBC 4.97, Hgb 14.4, Hct 44.4, MCV 89.3, MCH 29.0, MCHC 32.4, Plt Count 222, MPV 10.4, Immature Gran % (Auto) 0.900, Neut % (Auto) 56.8, Lymph % (Auto) 25.1, [place] % (Auto) 9.8, Eos % (Auto) 6.6 H, Baso % (Auto) 0.8, Absolute Neuts (auto) 4.5, Nucleated RBC % 0 08/31/20 05:50: Sodium 139, Potassium 4.5, Chloride 106, Carbon Dioxide 28.0, A nion Gap 5, BUN 13, Creatinine 0.97, Est GFR (MDRD) Af Amer 97, Est GFR (MDRD) Non-Af 80, BUN/Creatinine Ratio 13.4, Glucose 120 H, Calcium 8.6, Phosphorus 3.5, Total Bilirubin 1.40 H Rhythm: EKG: Normal sinus rhythm with a right bundle branch block ECHO: Stress Test: Cardiac Cath: PCI: CT Surgery: Holter monitor: EPS: PPM: CXR: Chest CT Scan: Radiography Diagnostic Testing: Radiology Impression Chest X-Ray 08/30/20 16:33 IMPRESSION: No acute radiographic abnormalities. Electronically Signed: Antonio Oconnor MD at 17:02 EDT Tel , Service support , Physical Exam Const oriented x3 and healthy appearing Orientation / Consciousness: awake HEENT normocephalic Eyes PERRL and conjunctivae normal Neck supple, no JVD and no carotid bruits Chest inspection of chest normal Resp normal respiratory effort and clear to auscultation bilaterally Cardio Palpation: normal PMI Rate: regular rate Rhythm: regular rhythm Heart Sounds: S1 normal and S2 normal Peripheral Pulses: pulses 2+ throughout GI normal to inspection, nondistended, normoactive bowel sounds Extremity normal to inspection and no clubbing, cyanosis or edema Psych mental status grossly normal Assessment & Plan Assessment/Plan (1) Chest pressure: PLAN: The patient presents with chest pressure and significant fatigue which is concerning for recent onset angina. * He underwent a cardiac catheterization which demonstrated no significant obstructive coronary disease. This corroborates with the stress test. I would recommend alternate sources of his chest discomfort as well as his shortness of breath be evaluated. I do not think that it is coronary in origin. (2) High blood pressure: PLAN: He does have borderline elevated blood pressure without a previous diagnosis of hypertension. We will continue to monitor his blood pressure through the night. Risk factor modification agents including blood pressure medication may be administered as necessary. He can be discharged for outpatient follow-up. Thank you for allowing me to participate in the care of your patient. Please don't hesitate to call if any issues arise.
--- NOTE | 2020-08-31 08:36 | CL.D_ITS ---
Patient Name: JET MENDEZ Study Date: 08/31/2020 Performing: Juan Diego Haynes MD Ht: 71 inches 180 cm : 1945 Wt: 251.7 lbs 114 kg Age: 75 Gender: male BSA: 2.32 PROCEDURE(S) PERFORMED GB72-ELI/COR CLINICAL PROFILE AND INDICATIONS Indications: Suspected CAD Heart Failure: None Stress/Imaging Date: 03/23/20ress Test with SPECT MPI: Negative CAD Presentations: Other: sob CONCLUSIONS Non obstructive coronary arteries RECOMMENDATIONS Medical therapy DESCRIPTION OF PROCEDURE The patient arrived to the procedure lab. The risks and benefits of the procedure as well as a full d escription of our services here and current unavailability of surgical backup were fully explained to the patient and/or their significant other prior to the catheterization. The Timeout was completed, verifying the correct patient and procedure. The patient's procedural site was prepped and draped in the usual fashion. Local anesthetic was given subcutaneously to right radial region with Lidocaine 2% . Using a modified Seldinger technique, arterial access was obtained via the right radial artery, a 6 Fr sheath was inserted. Right Coronary Artery selective angiography was then performed in multiple v iews using a 5 Fr. 4.0 [place] catheter. Left Coronary Artery selective angiography was performed in mu ltiple views using a 6 Fr. JL4 catheter.The arterial sheath was pulled and a TR Band was applied for hemostasis w/ 10ml air CORONARY ANGIOGRAPHY DOMINANCE: Co- Dominant LEFT HEART ASSESSMENT Left Ventricular Ejection Fraction: by Echo 55 % Normal LV wall motion Normal Left Ventricular systolic function LEFT MAIN: Mild calcification, No significant disease noted LEFT ANTERIOR DESCENDING ARTERY: Mild luminal irregularities less than 30% CIRCUMFLEX ARTERY: Mild luminal irregularities RIGHT CORONARY ARTERY: Mild luminal irregularities COMPLICATIONS No Complications PROCEDURE MEDICATIONS Versed 1 mg IV Fentanyl 50 mcg IV Versed 1 mg IV Oxygen: 2 L/min via nasal cannula Heparin given IA 08/31/2020 07:53:26 SUMMARY OF HEMODYNAMIC DATA Time AIR REST ECG 07:39:15 AO 126/83 (102) SA 07:55:38 Signed By Juan Diego Haynes MD On 08/31/2020 08:35:59 Juan Diego Haynes MD
--- NOTE | 2020-08-31 08:49 | PCM.DC.SUM ---
Providers Date of Admission: 08/30/20 Primary Care Physician: Dr. Raj Granger MD Consultations 08/30/20 18:30 Consult: Cardiology Routine Consulting Provider: Devante King Reason for Consult: UNSTABLE ANGINA EMERGENT Consult: Yes MD Notified: Yes Date Notified: 08/30/20 Time Notified: 18:30 Method of Notification: Verbal Method of Consult:: In-Person Reason For Visit: chest pain Diagnosis Discharge Diagnosis (1) Pinched thoracic nerve root: Status: Acute Code(s): M54.14 - Radiculopathy, thoracic region Medications at Discharge Home Medications allopurinol 300 mg PO DAILY 12/23/18 aspirin 81 mg PO DAILY 12/23/18 iirvksfs-fyc-TW-lycopen-lutein 1 ea PO DAILY 12/23/18 omeprazole 1 tab PO DAILY 12/23/18 B12 Active 1,000 mcg PO DAILY 08/30/20 cholecalciferol (vitamin D3) [Vitamin D3] 125 mcg PO DAILY 08/30/20 Hospital Course Summary of Care Provided Minutes Spent on Discharge: 35 Hospital Course: 1. Chest pain ?Patient underwent a nuclear stress test in March 2020 which was negative for stress-induced ischemia presented with typical symptoms with EKG changes. Admitted to a monitored bed as a case of unstable angina. As part of his management ordered serial cardiac enzymes, was placed on statin therapy therapeutic Lovenox beta-blockers. Ordered 2D echo as part of patient's management -08/31/2020. Consult was placed to cardiology patient was seen by Dr. Rousseau who did perform left heart catheterization. Patient left heart catheterization did reveal normal coronaries. Patient was discharged home instructed to follow-up with primary care physician for work-up of his noncardiac chest 2. Gout ?Patient is on allopurinol did continue 3. GERD ?On PPI 4. Obesity with BMI of 35.7 ?Weight loss advised 5. DVT prophylaxis ?Patient is on therapeutic Lovenox Physical Exam Narrative GENERAL: cooperative HEENT: Atraumatic; EYES; Anicteric, Normal Conjunctiva NECK; supple, normal thyroid, RESPIRATORY: Diminished to auscultation CARDIOVASCULAR: Regular S1 S2, SKIN: No Rash PSYCH; Flat affect Weight / BMI Weight Weight: 114.078 kg Body Mass Index (BMI) 35.0 ABG / Lab / Microbiology Data Result Diagrams: 08/31/20 05:50 08/31/20 05:50 Laboratory: Laboratory Results - last 24 hr 08/30/20 18:45: Troponin I High Sens 7.4 08/30/20 20:47: Troponin I High Sens 6.4 08/30/20 : WBC 9.7, RBC 5.02, Hgb 14.6, Hct 44.9, MCV 89.4, MCH 29.1, MCHC 32.5, RDW Std Deviation 44.4 H, RDW Coeff of Rachael 13.7, Plt Count 251, MPV 10.7, Immature Gran % (Auto) 0.800, Neut % (Auto) 60.2, Lymph % (Auto) 22.6, [place] % (Auto) 11.4 H, Eos % (Auto) 4.4, Baso % (Auto) 0.6, Absolute Neuts (auto) 5.8, Absolute Lymphs (auto) 2.19, Nucleated RBC % 0 08/30/20 : Sodium 138, Potassium 3.8, Chloride 105, Carbon Dioxide 28.0, Anion Gap 5, BUN 13, Creatinine 1.06, Estim Creat Clear Calc 65.12, Est GFR (MDRD) Af Amer 88, Est GFR (MDRD) Non-Af 73, BUN/Creatinine Ratio 12.3, Glucose 109 H, Calcium 9.0, Troponin I High Sens 6.0 08/31/20 00:53: Troponin I High Sens 6.8 08/31/20 05:50: WBC 7.9, RBC 4.97, Hgb 14.4, Hct 44.4, MCV 89.3, MCH 29.0, MCHC 32.4, RDW Std Deviation 44.2 H, RDW Coeff of Rachael 13.6, Plt Count 222, MPV 10.4, Immature Gran % (Auto) 0.900, Neut % (Auto) 56.8, Lymph % (Auto) 25.1, [place] % (Auto) 9.8, Eos % (Auto) 6.6 H, Baso % (Auto) 0.8, Absolute Neuts (auto) 4.5, Absolute Lymphs (auto) 1.99, Nucleated RBC % 0 08/31/20 05:50: Sodium 139, Potassium 4.5, Chloride 106, Carbon Dioxide 28.0, Anion Gap 5, BUN 13, Creatinine 0.97, Estim Creat Clear Calc 71.16, Est GFR (MDRD) Af Amer 97, Est GFR (MDRD) Non-Af 80, BUN/Creatinine Ratio 13.4, Glucose 120 H, Calcium 8.6, Phosphorus 3.5, Total Bilirubin 1.40 H, AST 16, ALT 14 L, Alkaline Phosphatase 82, Total Protein 6.4, Albumin 3.2, Globulin 3.2, Albumin/Globulin Ratio 1.0 Radiography Diagnostic Testing: Radiology Impression Chest X-Ray 08/30/20 16:33 IMPRESSION: No acute radiographic abnormalities. Electronically Signed: Antonio Oconnor MD at 17:02 EDT Tel , Service support , D/C Instructions Discharge Diet: No restrictions Discharge Activity: Return to Normal Activity Call your doctor if you observe: Fever of 101 or Higher, Shortness of breath, Fainting spells and Chest pain Meaningful Use Info Meaningful Use Diagnoses (Choose all that apply): None applicable Discharge Plan Admission Admit Date/Time: 08/30/20 18:09 Primary Reason for Your Visit: Chest pain Attending Provider: Theodore Hawkins Primary Care Provider: Raj Granger Consulting Providers: Devante King Instructions Patient Instructions: ED Chest Pain, Noncardiac Discharge Orders/Prescriptions Prescriptions: Continued omeprazole 20 MG capsule,delayed release(DR/EC) 1 tab PO DAILY RF: 0 aspirin 81 MG tablet,chewable 81 mg PO DAILY RF: 0 allopurinol 300 MG tablet 300 mg PO DAILY RF: 0 nedzetkk-xew-QH-lycopen-lutein 1 EACH tablet 1 ea PO DAILY RF: 0 cholecalciferol (vitamin D3) [Vitamin D3] 125 mcg (5,000 unit) Tablet 125 mcg PO DAILY RF: 0 B12 Active 1,000 mcg Tablet,Chewable 1,000 mcg PO DAILY RF: 0 Referrals / Follow Up: Raj Granger MD [Primary Care Provider] - Disposition Disposition (needs filled in before D/C Order can be placed): Home, Self Care Charges/Coding Visit Charges OBSV E&M: 37363 Observation care discharge
[2020-08-31] MEDS: 0.9% Normal Saline 1,000 ML 60 ML IV (08:57)
[2020-08-31] MEDS: Pantoprazole Sodium 20 MG Tablet PO (09:07)
[2020-08-31] MEDS: Allopurinol 300 MG Tablet PO (09:07)
--- NOTE | 2020-08-31 09:13 | CT_ITS ---
STUDY: CTA CHEST REASON FOR EXAM: Male, 75 years old. Elevated d-dimer, chest pain RADIATION DOSAGE (If Supplied By Facility): CTDIvol = ( 16.23 ) mGy, DLP = ( 520.75 ) mGycm TECHNIQUE: The examination was performed with the intravenous administration of IV 100mL Isovue-370. Post-processing of the angiographic images was performed, with multiplanar reformation and 3D reconstruction. Individualized dose optimization techniques were used for this CT. COMPARISON: None. FINDINGS: There is ill-defined nodularity and enlargement of the right thyroid lobe with extension into the superior mediastinum. Normal enhancement of the main pulmonary artery and right and left pulmonary arteries. Normal enhancement of the bilateral peripheral pulmonary arteries. There is no demonstrated pulmonary embolism. Normal pleura. The right upper lobe calcified granuloma. No focal pulmonary consolidation or infiltrate. Mild atelectasis at the left lung base. There is tortuosity of the aortic arch and descending thoracic aorta. There is no demonstrated aortic dissection. Normal heart and pericardium. Mild coronary artery calcifications. No mediastinal, axillary or bulky hilar adenopathy. Normal visualized trachea and bronchi. Normal chest wall structures. There are degenerative changes of thoracic spine and scoliosis. There are calcified stones in the gallbladder. There are right hepatic lobe hypodense lesions too small to characterize. CT/CTA Chest W/WO Contrast IMPRESSION: 1. No pulmonary embolism or arterial dissection. The lungs are clear. 2. Ill-defined nodularity and enlargement of the right thyroid lobe. Thyroid ultrasound can be obtained for further characterization. 3. Cholelithiasis. Electronically Signed: Alex Suazo MD at 11:51 EDT Tel , Service support ,
--- NOTE | 2020-08-31 09:13 | CT_ITS ---
STUDY: CT BRAIN WITHOUT CONTRAST REASON FOR EXAM: Male, 75 years old. head trauma RADIATION DOSAGE (If Supplied By Facility): CTDIvol = ( 44.99 ) mGy, DLP = ( 796.11 ) mGycm TECHNIQUE: Transaxial CT imaging of the brain was performed without administration of intravenous contrast material. Individualized dose optimization techniques were used for this CT. COMPARISON: CT head 12/23/2018 FINDINGS: Normal soft tissue structures. Normal calvarium. Normal size ventricles and extra-axial spaces for the patient''s age. There are areas of decreased attenuation within the white matter tracts of the supratentorial brain, consistent with microvascular disease changes. Normal basal ganglia and thalami. Normal brainstem. Normal cerebellum. There is no intracranial hemorrhage. There are no findings of an acute ischemic infarction. There is moderate mucosal thickening of the anterior ethmoid air cells and moderate right maxillary sinus chronic mucosal thickening. CT/Brain/Head without Contrast IMPRESSION: Chronic involutional changes of the brain. Electronically Signed: Alex Suazo MD at 11:55 EDT Tel , Service support ,
--- NOTE | 2020-08-31 10:14 | PHA.DC.MR ---
Pharmacy Service has performed discharge medication reconciliation for this patient. The patient's discharge medication list was reviewed for discrepancies and discrepancies were resolved. Home Medications allopurinol 300 mg PO DAILY 12/23/18 aspirin 81 mg PO DAILY 12/23/18 hjvdekbi-fby-NO-lycopen-lutein 1 ea PO DAILY 12/23/18 omeprazole 1 tab PO DAILY 12/23/18 B12 Active 1,000 mcg PO DAILY 08/30/20 cholecalciferol (vitamin D3) [Vitamin D3] 125 mcg PO DAILY 08/30/20
== END 2020-08-31 13:10 | disposition home or self-care (01) ==
LOC: ED 17:08 → PCU 18:16
PROVIDERS: Admitting Provider Internal Medicine; Emergency Provider Emergency Medicine; PCP Family Medicine; Visit Provider Internal Medicine
DX: R07.89 Other chest pain (principal); M54.14 Radiculopathy, thoracic region; R03.0 Elevated blood-pressure reading, without diagnosis of hypertension; R06.02 Shortness of breath; M10.9 Gout, unspecified; K21.9 Gastro-esophageal reflux disease without esophagitis; E66.9 Obesity, unspecified; I45.10 Unspecified right bundle-branch block; I44.0 Atrioventricular block, first degree; M06.9 Rheumatoid arthritis, unspecified; Z68.35 Body mass index [BMI] 35.0-35.9, adult; Z79.899 Other long term (current) drug therapy; Z79.82 Long term (current) use of aspirin; R22.2 Localized swelling, mass and lump, trunk
CPT/HCPCS: 36415; 70450; 71045; 71275; 80048; 80053; 84100; 84484; 85025; 93005; 93454; 96372; 99152; 99153; 99218; 99285; J7030; Q9967; A4216; C1769; C1894; G0378

== ENCOUNTER → 2022-01-25 | Outpatient (CLI) | payer MEDICARE, BC, SELFPAY | END | disposition home or self-care (01) | PROVIDERS: PCP Family Medicine; Visit Provider Family Medicine | DX: R19.7 Diarrhea, unspecified (principal) | CPT/HCPCS: 83630; 87493 ==

== ENCOUNTER 2022-03-02 05:19 | Emergency (ER) | payer MEDICARE, BC, SELFPAY ==
[2022-03-02 05:20] VITALS: BP 131/79; PULSE 70; RESP 18; TEMP 36.6; O2SAT 96; BMI 35.6
--- NOTE | 2022-03-02 05:56 | ED.VIS.GI ---
HPI HPI - GI History of Present Illness Chief Complaint: Nausea/Vomiting/Diarrhea Informant: patient Narrative Narrative: Patient states 2 months ago he was put on clindamycin by his dentist and subsequently started having diarrhea and he has had loose or watery nonbloody diarrhea roughly 5 times per day ever since, for the past 2 months. He says yesterday he started vomiting, and had quite a bit of it throughout the day. Nonbloody, nonbilious. Intermittent mild abdominal discomfort lower abdomen not present right now. Overnight, he had another bout of diarrhea he states he had a large black bowel movement. He states this morning, he had one that was closer to the color that it has been, light yellow-brown. He has seen no blood. Malaise but no lightheadedness or near syncope, no fevers or chills, he had a prior herniorrhaphy and a surgery on his testicle when he was much younger no other abdominal surgeries and none recently. [facility] Medical History 1st degree AV block Back pain GERD (gastroesophageal reflux disease) Gout High blood pressure Impaired hearing Rheumatoid arthritis Home Medications allopurinol 300 mg tablet 300 mg PO DAILY 12/23/18 [History Last Taken 08/30/20] aspirin 81 mg chewable tablet 81 mg PO DAILY 12/23/18 [History Last Taken 08/30/20] fabfyjea-yyn-vrcfh acid 300 mcg-lycopene 600 mcg-lutein 300 mcg tablet 1 ea PO DAILY 12/23/18 [History Last Taken 08/30/20] omeprazole 20 mg capsule,delayed release 1 tab PO DAILY 12/23/18 [History Last Taken 08/30/20] cholecalciferol (vitamin D3) 125 mcg (5,000 unit) tablet (Vitamin D3) 125 mcg PO DAILY 08/30/20 [History Last Taken 08/30/20] mecobalamin (vitamin B12) 1,000 mcg chewable tablet (B12 Active) 1,000 mcg PO DAILY 08/30/20 [History Last Taken 08/30/20] ondansetron 4 mg disintegrating tablet 8 mg PO Q8H PRN PRN Nausea #20 tabs 03/02/22 [Rx Last Taken Unknown] vancomycin 125 mg capsule See Rx Instructions .Route .COMPLEX #86 caps 03/02/22 [Rx Last Taken Unknown] Allergy/AdvReac Type Severity Reaction Status Date / Time Penicillins [PCN] Allergy Unknown Verified 08/30/20 16:03 Sulfa (Sulfonamide Allergy Unknown Verified 08/30/20 16:03 Antibiotics) Family History Father CVA (cerebral vascular accident) Surgical History History of left heart catheterization (08/31/20) Social History Smoking Status: Never smoker ROS ROS ED Constitutional Constitutional ED: Reports malaise; Denies chills or fever(s) Eyes Eyes: Denies change in vision or diplopia ENT ENT ED: Denies rhinorrhea or sore throat Cardiovascular Cardiovascular: Denies chest pain or palpitations Respiratory/Chest Respiratory/Chest: Reports dyspnea on exertion; Denies cough or dyspnea Gastrointestinal Gastrointestinal: Reports as per HPI, abdominal pain, diarrhea, nausea and vomiting Genitourinary Genitourinary ED: Denies dysuria or hematuria Musculoskeletal Musculoskeletal: Denies back pain or neck pain Integumentary Denies abscess or rash Neurologic Neurologic: Denies headache(s), paresthesias or weakness Psychiatric Psychiatric: Denies anxiety or suicidal thoughts EXAM Physical Exam Const Vital Signs: 03/02/22 05:20 Temperature 97.9 F Temperature Source Temporal Pulse Rate 70 Respiratory Rate 18 Blood Pressure 131/79 H Blood Pressure Mean 96 Pulse Ox 96 Oxygen Delivery Method Room Air Positive well nourished, well developed and obese General Appearance ED: well developed and NAD Nutritional Appearance: obese HEENT Reports moist mucous membranes normocephalic and atraumatic Eyes PERRL and EOMs intact bilaterally Neck full ROM and supple Resp normal respiratory effort and clear to auscultation bilaterally Cardio regular rate, regular rhythm and no murmurs Rate: Negative for tachycardic GI non-tender and non-distended Auscultation: hyperactive bowel sounds Palpation: soft Back/Spine no CVA tenderness General Back: other FROM Extremity normal to inspection General Extremety ED: Negative for edema, pulses abnormal or tenderness General Extremity: Negative for edema or pulses abnormal Neuro oriented x3, CN's II-XII intact bilaterally, no sensory deficits noted and gait normal Sensorium / Orientation: awake and alert Motor Exam: strength 5/5 throughout Psych mental status grossly normal and thought process normal Skin no rashes or lesions noted and no wounds MDM MDM MDM Narrative Medical decision making narrative: Certainly there is a chance/risk for C. difficile in this patient who has had diarrhea ever since he was on clindamycin, so we ordered C. difficile and he was able to produce some diarrhea, that is still pending as it is Hemoccult blood on that. However when nursing looked at the sample that he provided, it looked like nonmelanotic stool containing black beans which was probably the reason his stool was black. It was at this point that the patient then told the nurse which she did not tell me that he was already seen here for this 1-2 months ago and they sent a stool sample then and the patient states that someone called him and told him it was very contagious and put him on an unknown oral pill 4 times a day for 1 week, the patient does not know the medication. He has never followed up as an outpatient for this. This led me to review his prior sample and it appears to be positive for C. difficile back on 01/25/2022. He states that the medication he did take did help his diarrhea, but then around [place] it got worse and has been persistent since then, which is not the initial history he gave. At this time his comprehensive metabolic panel is normal except for an elevated total bilirubin of 2.3, he has had 2 prior measurements both of which were abnormal in the past but not to this level. Etiology of this is unknown. He is not having any pain/symptoms to suggest cholecystitis. He is a mild leukocytosis, no bandemia and the rest of his CBC is within normal limits. His vital signs are normal and he is well-appearing, the plan will be to discharge him home on oral vancomycin dosed according to recommendations for the first recurrence (presumed), as well as Zofran and close outpatient follow-up. I discussed all this with Dr. Yoon, he is on-call for the patient's PCP Dr. Granger. He agrees with all the above and will have the patient follow-up. Patient is Hemoccult did later come back positive. This is of unknown significance, his hemoglobin is 14.2 and his vital signs are stable, my suspicion is that it is related to inflammation due to having colitis. He is already planning on having blood work repeated when he follows up. Lab Data Attestation: I reviewed the patient's lab results. Labs: Laboratory Results - last 24 hr 03/02/22 03/02/22 03/02/22 06:47 06:47 06:59 WBC Cancelled 13.5 H Corrected WBC Cancelled RBC Cancelled 5.01 Hgb Cancelled 14.2 Hct Cancelled 44.4 MCV Cancelled 88.6 MCH Cancelled 28.3 MCHC Cancelled 32.0 RDW Std Deviation Cancelled 46.7 H RDW Coeff of Rachael Cancelled 14.5 Plt Count Cancelled 213 MPV Cancelled 9.7 Immature Gran % (Auto) Cancelled 0.700 Neut % (Auto) Cancelled 88.7 H Lymph % (Auto) Cancelled 4.2 L [place] % (Auto) Cancelled 6.1 Eos % (Auto) Cancelled 0.1 Baso % (Auto) Cancelled 0.2 Absolute Neuts (auto) Cancelled 12.0 H Absolute Lymphs (auto) Cancelled 0.57 L Total Counted Cancelled Neutrophils % (Manual) Cancelled Band Neutrophils % Cancelled Lymphocytes % (Manual) Cancelled Monocytes % (Manual) Cancelled Eosinophils % (Manual) Cancelled Basophils % (Manual) Cancelled Metamyelocytes % Cancelled Myelocytes % Cancelled Promyelocytes % Cancelled Blast Cells % Cancelled Plasma Cell % (Manual) Cancelled Other Cells % Cancelled Nucleated RBC % Cancelled 0 Nucleated RBCs/100 WBC Cancelled Differential Comment Cancelled Diff Path Review Cancelled Hypersegmented Neuts Cancelled Atypical Lymphocytes Cancelled Reactive Lymphocytes Cancelled Smudge Cells Cancelled Toxic Granulation Cancelled Toxic Vacuolation Cancelled Dohle Bodies Cancelled Soren Rods Cancelled Platelet Estimate Cancelled Plt Morphology Comment Cancelled RBC Morphology Cancelled Polychromasia Cancelled Hypochromasia Cancelled Poikilocytosis Cancelled Basophilic Stippling Cancelled Anisocytosis Cancelled Microcytosis Cancelled Macrocytosis Cancelled Spherocytes Cancelled Sickle Cells Cancelled Target Cells Cancelled Tear Drop Cells Cancelled Ovalocytes Cancelled Stomatocytes Cancelled [place] Bodies Cancelled Matthews Cells Cancelled Bite Cells Cancelled Crenated Cell Cancelled Acanthocytes (Spur) Cancelled Rouleaux Cancelled Schistocytes Cancelled Sodium 138 Potassium 3.7 Chloride 106 Carbon Dioxide 26.0 Anion Gap 6 BUN 14 Creatinine 1.04 Estim Creat Clear Calc 65.36 Est GFR (MDRD) Af Amer 89 Est GFR (MDRD) Non-Af 74 BUN/Creatinine Ratio 13.5 Glucose 169 H Calcium 8.9 Total Bilirubin 2.30 H AST 23 ALT 22 Alkaline Phosphatase 83 Total Protein 7.4 Albumin 3.6 Globulin 3.8 Albumin/Globulin Ratio 0.9 Discharge Plan Triage Chief Complaint: Nausea/Vomiting/Diarrhea ED Provider: Eloy Dangelo Dx/Rx/DC Orders Clinical Impression: C. difficile colitis, Vomiting, Hyperbilirubinemia, Occult GI bleeding Instructions: Clostridium Difficile Infection Prescriptions: New ondansetron [ondansetron] 4 mg tablet,disintegrating 8 mg PO Q8H PRN PRN (Reason: Nausea) Qty: 20 0RF vancomycin 125 mg capsule See Rx Instructions .ROUTE .COMPLEX Qty: 86 0RF Rx Instructions: 1 cap po q6h x 14d; then 1 cap po q12h x 7d; then 1 cap po daily x 7d; then 1 cap po q3d x 4wk No Action omeprazole 20 MG capsule,delayed release(DR/EC) 1 tab PO DAILY aspirin 81 MG tablet,chewable 81 mg PO DAILY allopurinol 300 MG tablet 300 mg PO DAILY modpyeor-fux-TV-lycopen-lutein 1 EACH tablet 1 ea PO DAILY cholecalciferol (vitamin D3) [Vitamin D3] 125 mcg (5,000 unit) Tablet 125 mcg PO DAILY mecobalamin (vitamin B12) [B12 Active] 1,000 mcg Tablet,Chewable 1,000 mcg PO DAILY Primary Care Provider: Raj Granger Referrals: Raj Granger MD [Primary Care Provider] - 3-5 Days Disposition Disposition: Home, Self Care
[2022-03-02] MEDS: 0.9% Normal Saline 1,000 ML 999 ML IV (06:48)
[2022-03-02] MEDS: Ondansetron 4 MG/2 ML Vial IV (06:51)
[2022-03-02 07:05] LABS: Absolute Lymphocyte Count 0.57 X10^3/uL (0.83-4.51); Basophil# 0.03 X10^3/uL; Basophil% 0.2 % (0-1); Eosinophil# 0.02 X10^3/uL; Eosinophils% 0.1 % (0-5); Hematocrit 44.4 % (40-54); Hemoglobin 14.2 g/dL (13.0-16.5); Lymphocyte # 0.57 X10^3/ul (0.83-4.51); Lymphocyte % 4.2 % (19-41); Mean Corpuscular Hgb 28.3 pg (27.0-32.0); Mean Corpuscular Volume 88.6 fL (80-94); Mean Platelet Vol. 9.7 fl (6.2-12.0); Monocyte# 0.82 X10^3/uL; Monocyte% 6.1 % (0-10); NRBC Flagged by Analyzer 0 % (0-5); Neutrophil # 11.96 X10^3/uL (2.7-7.7); Neutrophil % 88.7 % (47-70); POSITIVE DIFFERENTIAL YES; Platelet Count 213 K/mm3 (150-450); RBC Distribution Width CV 14.5 % (11.6-14.6); RBC Distribution Width SD 46.7 fl (35.1-43.9); Red Blood Count 5.01 M/mm3 (4.6-6.2); White Blood Count 13.5 K/mm3 (4.4-11.0)
[2022-03-02 07:09] LABS: ALB/GLOB Ratio 0.9 RATIO (0.9-2.4); AST(SGOT) 23 U/L (15-37); Alanine Aminotransfer ALT/SGPT 22 U/L (16-61); Albumin, Serum 3.6 g/dL (3.2-5.0); Alkaline Phosphatase 83 U/L (45-117); Anion Gap 6 (5-15); BUN 14 mg/dL (7-18); BUN/Creat Ratio 13.5 RATIO (10-20); Calcium,Total 8.9 mg/dL (8.5-10.1); Chloride 106 mmol/L (98-107); Creatinine, Serum 1.04 mg/dL (0.70-1.30); EST Glomerular Filtration Rate 74 mL/min (>60); Est Glom Filt Rate - Afr Amer 89 mL/min (>60); Estimated Creatinine Clearance 65.36 ml/min; Globulin 3.8 g/dL (2.2-4.2); Glucose 169 mg/dL (74-106); Potassium 3.7 mmol/L (3.5-5.1); Protein, Total 7.4 g/dL (6.4-8.2); Sodium Level 138 mmol/L (136-145)
[2022-03-02 07:19] LABS: Differential Indicated SCAN CRITERIA MET
[2022-03-02 08:00] VITALS: BP 134/77; PULSE 81; RESP 16; TEMP 36.7; O2SAT 95
--- NOTE | 2022-03-02 12:03 | ED.RN ---
LAB CALLS TO ED WITH POSITIVE C-DIFF RESULTS. PT WAS DISCHARGED WITH VANCOMYCIN TAPER. PER DR. MARTIN, NO FOLLOW UP NECESSARY AT THIS TIME.
== END 2022-03-02 08:02 | disposition home or self-care (01) ==
PROVIDERS: Emergency Provider Emergency Medicine; PCP Family Medicine; Visit Provider Emergency Medicine
DX: A04.72 Enterocolitis due to Clostridium difficile, not specified as recurrent (principal); E80.6 Other disorders of bilirubin metabolism; R06.09 Other forms of dyspnea; R10.9 Unspecified abdominal pain; R19.7 Diarrhea, unspecified; R11.2 Nausea with vomiting, unspecified; E66.9 Obesity, unspecified
CPT/HCPCS: 80053; 82274; 85025; 87493; 96361; 96374; 99283; J7030; A4216; J2405

== ENCOUNTER → 2022-03-08 | Outpatient (CLI) | payer MEDICARE, BC, SELFPAY ==
[2022-03-08 13:02] LABS: Anion Gap 5 (5-15); BUN 8 mg/dL (7-18); BUN/Creat Ratio 9.5 RATIO (10-20); Chloride 107 mmol/L (98-107); Creatinine, Serum 0.84 mg/dL (0.70-1.30); EST Glomerular Filtration Rate 95 mL/min (>60); Est Glom Filt Rate - Afr Amer 115 mL/min (>60); Glucose 121 mg/dL (74-106); Potassium 3.9 mmol/L (3.5-5.1); Sodium Level 141 mmol/L (136-145)
[2022-03-08 14:10] LABS: Glucose, Dipstick Normal (Normal); Ketone-Dipstick Negative (Negative); Leukocyte Esterase-Dipstick Negative /ul (Negative); Nitrite-Dipstick Negative (Negative); Occult Blood-Urine Negative /ul (Negative); Protein-Dipstick Negative (Negative); Urine Bilirubin Dipstick Negative (Negative); Urine Urobilinogen Normal (Normal)
[2022-03-08 14:12] LABS: Color, Urine Yellow (Yellow); Urine Clarity Clear (Clear)
== END | disposition home or self-care (01) ==
LOC: BFHLAB 10:14
PROVIDERS: PCP Family Medicine; Visit Provider Family Medicine
DX: M54.9 Dorsalgia, unspecified (principal); Z51.81 Encounter for therapeutic drug level monitoring
CPT/HCPCS: 36415; 80048; 81002

== ENCOUNTER → 2022-05-11 | Outpatient (CLI) | payer MEDICARE, BC, SELFPAY ==
[2022-05-11 12:57] LABS: AST(SGOT) 26 U/L (15-37); Alanine Aminotransfer ALT/SGPT 18 U/L (16-61); Albumin, Serum 3.5 g/dL (3.2-5.0); Alkaline Phosphatase 68 U/L (45-117); Bilirubin, Direct 0.18 mg/dL (0.00-0.30); Cholesterol 168 mg/dL (200); Globulin 3.4 g/dL (2.2-4.2); High Density Lipoprotein 36 mg/dL; Protein, Total 6.9 g/dL (6.4-8.2); Triglycerides 144 mg/dL; Uric Acid 5.9 mg/dL (3.5-7.2); Very Low Density Lipoprotein 29 mg/dL (5-40)
[2022-05-11 13:06] LABS: Hemoglobin A1c 6.1 % (3.8-5.6)
[2022-05-11 13:07] LABS: Microalbumin,Random Urine 8.1 mg/L (NO RANGE EST.); Microalbumin:Creatinine Ratio 7.2 mg/g CRE (<30 mg/g CRE)
== END | disposition home or self-care (01) ==
LOC: BFHLAB 10:08
PROVIDERS: PCP Family Medicine; Referring Provider Family Medicine; Visit Provider Family Medicine
DX: E11.9 Type 2 diabetes mellitus without complications (principal); M10.9 Gout, unspecified
CPT/HCPCS: 36415; 80061; 80076; 82043; 82570; 83036; 84550

== ENCOUNTER → 2022-06-29 | Outpatient (CLI) | payer MEDICARE, BC, SELFPAY ==
--- NOTE | 2022-06-29 14:58 | RAD_ITS ---
STUDY: X-RAY - LUMBAR SPINE REASON FOR EXAM: Male, 77 years old. BACK PAIN TECHNIQUE: 4 view(s) of the lumbar spine were obtained including oblique views. COMPARISON: None FINDINGS: There is an exaggerated lumbar lordosis. There is no substantial scoliosis. There is a normal alignment of the vertebrae. There is multilevel endplate spondylosis of the lumbar vertebrae. There is multi-level degenerative disc disease with multi-level disc space narrowing. Facet joint osteoarthritis. There is atherosclerotic calcification of the abdominal aorta without a demonstrated aneurysm. RAD/L/S Spine Min 4 Views IMPRESSION: Degenerative changes of the spine, as detailed above. Increased lordosis. Electronically Signed: Wilman Beaver MD at 14:47 EDT ,
--- NOTE | 2022-06-29 14:58 | RAD_ITS ---
STUDY: X-RAY - PELVIS AND RIGHT HIP REASON FOR EXAM: Male, 77 years old. HIP AND LEG PAIN TECHNIQUE: 3 views of the pelvis and hip. COMPARISON: None. FINDINGS: There is a non-specific bowel gas pattern. Normal visualized soft tissue structures. There is narrowing with cortical sclerosis and osteophyte formation of the sacroiliac joint consistent with degenerative osteoarthritic changes. Normal bilateral superior and inferior pubic rami. Normal pubic symphysis. Normal bilateral ischial tuberosities. There are osteoarthritic changes of the femoral head with marginal osteophyte formation. There is widening of the right femoral head suggestive of right femoral acetabular impingement. Normal acetabulum. There is moderate articular joint space narrowing of the hip. 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 Electronically Signed: Wilman Beaver MD at 14:48 EDT ,
== END | disposition home or self-care (01) ==
LOC: MTRAD 14:54
PROVIDERS: PCP Family Medicine; Referring Provider Family Medicine; Visit Provider Family Medicine
DX: M25.551 Pain in right hip (principal); M54.16 Radiculopathy, lumbar region
CPT/HCPCS: 72110; 73502

== ENCOUNTER 2022-08-28 16:48 | Observation (INO) | payer MEDICARE, BC, SELFPAY ==
[2022-08-28] VITALS (15 sets, daily range): BP systolic 120–159; BP diastolic 78–88; PULSE 65–88; RESP 13–27; TEMP 36.4–36.8; O2SAT 89–98; BMI 37.7; BMI 36.7
--- NOTE | 2022-08-28 16:48 | NURSING ---
[id number] STROKE ALERT CALLED FROM [facility]
--- NOTE | 2022-08-28 16:54 | CT_ITS ---
We are attempting to reach an attending provider to discuss findings. An addendum with communication details will be sent when the communication is complete. INDICATION: Neuro deficit, acute, stroke suspected EXAMINATION: CT BRAIN - CT Head Stroke Protocol W/O Contrast Injection TECHNIQUE: Multiple axial images were obtained of the head without intravenous contrast. A radiation dose optimization technique was used for this scan. IV Contrast dosage and agent: None. RADIATION DOSAGE (If Supplied By Facility): CTDIvol = ( ) mGy, DLP = ( ) mGycm COMPARISON: CT head 08/31/2020 FINDINGS: BRAIN: No acute bleed. No edema. Mild decreased attenuation in the periventricular white matter bilaterally. Tejeda-white matter differentiation is maintained. Arterial calcifications. VENTRICLES AND SULCI: Not dilated. EXTRA-AXIAL: No hemorrhage, fluid collection, or mass. CALVARIUM / SKULL BASE: Unremarkable. FACE/SINUSES: Mucosal thickening in the maxillary and sphenoid sinuses. SOFT TISSUES: Unremarkable. CT/STROKE Brain/Head without Cont IMPRESSION: No acute abnormality on noncontrast CT. CT angiogram and/or MRI recommended to evaluate for acute infarct, as clinically indicated. Chronic microvascular ischemic disease. Electronically Signed: Enma Blanco MD at 17:07 EDT ,
--- NOTE | 2022-08-28 16:54 | EKG12_ITS ---
Test Reason : CHEST TIGHTNESS Blood Pressure : / mmHG Vent. Rate : 079 BPM Atrial Rate : 079 BPM P-R Int : 234 ms QRS Dur : 146 ms QT Int : 418 ms P-R-T Axes : 020 094 -51 degrees QTc Int : 479 ms Sinus rhythm with 1st degree A-V block Rightward axis Non-specific intra-ventricular conduction block Possible Inferior infarct , age undetermined Confirmed by ARCENIO COFFEY, KATALINA ([id number]), editor & co founder DAWN BARKER ([id number]) on 08/30/2022 10:16:32 AM Referred By: ANNABELLE/BB Confirmed By:KATALINA RG MD
--- NOTE | 2022-08-28 16:55 | CT_ITS ---
We are attempting to reach an attending provider to discuss findings. An addendum with communication details will be sent when the communication is complete. STUDY: CTA HEAD AND NECK WITH CONTRAST REASON FOR EXAM: Male, 77 years old. Neuro deficit, acute, stroke suspected RADIATION DOSAGE (If Supplied By Facility): CTDIvol = ( 24.72 ) mGy, DLP = ( 789.38 ) mGycm TECHNIQUE: CT angiography was performed with a multi-detector CT scanner. Data acquisition was obtained from the skull base through the vertex following intravenous administration of IV 100mL Isovue-300. MIP images were reconstructed from the axial data set. Post-processing of the angiographic images was performed, with multiplanar reformation and 3D reconstruction. Individualized dose optimization techniques were used for this CT. COMPARISON: CT brain noncontrast from today. FINDINGS: Normal bilateral petrous carotid arteries. Normal right cavernous carotid artery with a normal supraclinoid bifurcation. Normal left cavernous carotid artery with a normal supraclinoid bifurcation. Normal right A1 segments of the anterior cerebral artery. Normal left A1 segments of the anterior cerebral artery. Normal intact anterior communicating artery (ACOM). Normal bilateral A2 segments of the anterior cerebral arteries. Normal right M1 and M2 segments of the middle cerebral arteries, with a normal M1 bifurcation. Normal left M1 and M2 segments of the middle cerebral arteries, with a normal M1 bifurcation. There is non-visualization of the right posterior communicating artery (PCOM). There is non-visualization of the left posterior communicating artery (PCOM). Normal bilateral vertebral arteries. Normal basilar artery with a normal basilar bifurcation. The visualized bilateral superior cerebellar (SCA) arteries are normal. Normal bilateral P1, P2 and visualized P3 segments of the posterior cerebral arteries. There is no demonstrated aneurysm of the [place] of [place]. There is no demonstrated abnormality of the visualized brain. AORTIC ARCH: Tortuous origins. Normal visualized aortic arch. Normal origins of the brachiocephalic, left common carotid, and left subclavian arteries. RIGHT CAROTID ARTERIES: Normal right common carotid artery (CCA). Normal right common carotid bulb. Normal origin of the right internal carotid (ICA) artery without a hemodynamically significant stenosis. Normal visualized cervical portion of the right internal carotid artery. Normal origin of the right external carotid artery (ECA). LEFT CAROTID ARTERIES: Normal left common carotid artery (CCA). Normal left common carotid bulb. Normal origin of the left internal carotid (ICA) artery without a hemodynamically significant stenosis. Normal visualized cervical portion of the left internal carotid artery. Normal origin of the left external carotid artery (ECA). VERTEBRAL ARTERIES: Normal bilateral vertebral arteries. Thyroid is enlarged heterogeneous and irregular. CT/STROKE CTA Head AND Neck W/Con IMPRESSION: Enlarged heterogeneous thyroid. Recommend nonemergent thyroid ultrasound. Otherwise Normal CTA Head and neck with contrast. Electronically Signed: Sumanth Hansen MD at 17:32 EDT ,
--- NOTE | 2022-08-28 17:06 | NURSING ---
FAXED FACESHEET TO [facility]
[2022-08-28 17:08] LABS: Bedside Glucose 148 mg/dL (74-106)
[2022-08-28 17:18] LABS: Absolute Lymphocyte Count 1.66 X10^3/uL (0.83-4.51); Basophil# 0.07 X10^3/uL; Basophil% 0.7 % (0-1); Eosinophil# 0.28 X10^3/uL; Eosinophils% 2.8 % (0-5); Hematocrit 44.5 % (40-54); Hemoglobin 14.6 g/dL (13.0-16.5); Lymphocyte # 1.66 X10^3/ul (0.83-4.51); Lymphocyte % 16.4 % (19-41); Mean Corp Hgb Conc 32.8 g/dL (32-36); Mean Corpuscular Hgb 29.3 pg (27.0-32.0); Mean Corpuscular Volume 89.2 fL (80-94); Mean Platelet Vol. 10.2 fl (6.2-12.0); Monocyte# 0.97 X10^3/uL; Monocyte% 9.6 % (0-10); NRBC Flagged by Analyzer 0 % (0-5); Neutrophil % 69.2 % (47-70); Platelet Count 268 K/mm3 (150-450); RBC Distribution Width CV 14.1 % (11.6-14.6); RBC Distribution Width SD 45.3 fl (35.1-43.9); Red Blood Count 4.99 M/mm3 (4.6-6.2); White Blood Count 10.1 K/mm3 (4.4-11.0)
--- NOTE | 2022-08-28 17:20 | RAD_ITS ---
INDICATION: Neuro deficit, acute, stroke suspected EXAMINATION/TECHNIQUE: X-RAY - XR Chest 1 View AP portable. 5:23 PM COMPARISON: 08/30/2020 FINDINGS: LINES/DEVICES: None. LUNGS: No consolidation. Reticular opacities in the lung bases unchanged, likely scarring. No pneumothorax. MEDIASTINUM: Unremarkable. CARDIAC SILHOUETTE: Not enlarged. BONES AND SOFT TISSUES: No acute abnormalities. RAD/Chest 1 View IMPRESSION: No evidence of active intrathoracic disease. Electronically Signed: Enma Blanco MD at 17:42 EDT ,
[2022-08-28 17:27] LABS: Prothrombin Time (Protime)PT. 13.5 SECONDS (11.7-14.9)
[2022-08-28 17:28] LABS: Partial Thromboplast Time 29.3 Seconds (24.1-36.2)
--- NOTE | 2022-08-28 17:30 | CM.ED ---
Social Work Note Referral Source: Stroke Alert Referral Reason: emotional support SW responded to stroke alert and introduced herself and role to patient's and son in law. Patient's was agreeable to speak with SW and reviewed recent events. SW provided emotional support and reviewed [facility] response to stroke alert including teleconference with [facility] neurology. SW remains available if additional needs arise. Jennifer Araiza MEDICAL PARASITOLOGIST, ERIC
[2022-08-28 17:44] LABS: Anion Gap 4 (5-15); BUN 12 mg/dL (7-18); BUN/Creat Ratio 10.7 RATIO (10-20); Calcium,Total 8.9 mg/dL (8.5-10.1); Chloride 110 mmol/L (98-107); Creatinine, Serum 1.12 mg/dL (0.70-1.30); EST Glomerular Filtration Rate 68 mL/min (>60); Est Glom Filt Rate - Afr Amer 82 mL/min (>60); Estimated Creatinine Clearance 57.94 ml/min; Glucose 132 mg/dL (74-106); Potassium 3.7 mmol/L (3.5-5.1); Sodium Level 142 mmol/L (136-145); Troponin-I HS 10 pg/mL (3.0-78.0)
--- NOTE | 2022-08-28 17:53 | EDS_ITS ---
HPI History of Present Illness Chief Complaint: Stroke Alert Informant: patient and family Onset/Context/Timing Onset: Today Context: Sudden Onset Timing: Intermittent Quality and Location: Positive for Slurred Speech Onset: 1:50 PM is the last known well Worsened by: Nothing Relieved by: Nothing Associated Symptoms Associated Symptoms: Positive for Chest Pain; Negative for Headache, Nausea or Vomiting Narrative Narrative: Patient presents with slurred speech that began today. Patient states that he was not feeling well at approximately 1:50 PM today. Patient states he laid down at that time. Patient states he accidentally called his son at approximately 3:50 PM today. Patient was slurring his speech at that time. Currently, the patient has no symptoms. Patient states he was having some pain in his chest and took 1 sublingual nitroglycerin. Patient states he felt some tingling under his tongue but denies any headaches after taking it. Patient denies any change in his chest pain at that time. Currently, the patient has no symptoms. [facility] Medical History 1st degree AV block Back pain GERD (gastroesophageal reflux disease) Gout High blood pressure Impaired hearing Rheumatoid arthritis Home Medications allopurinol 300 mg tablet 300 mg PO DAILY 12/23/18 [History Last Taken 08/30/20] aspirin 81 mg chewable tablet 81 mg PO DAILY 12/23/18 [History Last Taken 08/30/20] [id number] 300 mcg-K 60 mcg-lycop 600 mcg-lutein 300 mcg tablet 1 ea PO DAILY 12/23/18 [History Last Taken 08/30/20] omeprazole 20 mg capsule,delayed release 1 tab PO DAILY 12/23/18 [History Last Taken 08/30/20] cholecalciferol (vitamin D3) 125 mcg (5,000 unit) tablet (Vitamin D3) 125 mcg PO DAILY 08/30/20 [History Last Taken 08/30/20] mecobalamin (vitamin B12) 1,000 mcg chewable tablet (B12 Active) 1,000 mcg PO DAILY 08/30/20 [History Last Taken 08/30/20] ondansetron 4 mg disintegrating tablet 8 mg (2 x 4 mg) PO Q8H PRN PRN Nausea #20 tabs 03/02/22 [Rx Last Taken Unknown] vancomycin 125 mg capsule See Rx Instructions .Route .COMPLEX #86 caps 03/02/22 [Rx Last Taken Unknown] Allergy/AdvReac Type Severity Reaction Status Date / Time Penicillins [PCN] Allergy Unknown Verified 08/28/22 19:17 Sulfa (Sulfonamide Allergy Unknown Verified 08/28/22 19:17 Antibiotics) Family History Father CVA (cerebral vascular accident) Surgical History History of left heart catheterization (08/31/20) Social History Smoking Status: Never smoker ROS ROS ED Constitutional Constitutional ED: Denies chills or fever(s) Eyes Eyes: Denies blurry vision or change in vision ENT ENT ED: Denies rhinorrhea or sore throat Cardiovascular Cardiovascular: Reports chest pain; Denies palpitations Respiratory/Chest Respiratory/Chest: Denies cough or dyspnea Gastrointestinal Gastrointestinal: Denies nausea or vomiting Genitourinary Genitourinary ED: Denies dysuria or hematuria Musculoskeletal Musculoskeletal: Denies back pain or neck pain Integumentary Denies abscess or rash Neurologic Neurologic: Denies headache(s) or weakness Allergic/Immunologic Allergic/Immunologic ED: Denies mouth swelling or urticaria EXAM Physical Exam Const Vital Signs: 08/28/22 16:54 08/28/22 16:54 08/28/22 17:17 Temperature 97.7 F L Temperature Source Temporal Pulse Rate 73 77 Respiratory Rate 14 13 Blood Pressure 132/88 H 132/88 H Blood Pressure Mean 102 102 Pulse Ox 94 94 Oxygen Delivery Method Room Air Room Air Room Air 08/28/22 17:24 08/28/22 17:30 08/28/22 18:00 Temperature Temperature Source Pulse Rate 71 70 67 Respiratory Rate 20 H 18 18 Blood Pressure 120/87 H 125/83 H 120/83 H Blood Pressure Mean 98 97 95 Pulse Ox 93 94 93 Oxygen Delivery Method Room Air Room Air Room Air 08/28/22 17:42 08/28/22 17:45 08/28/22 17:50 Temperature Temperature Source Pulse Rate 70 68 71 Respiratory Rate 27 H 18 26 H Blood Pressure 120/78 Blood Pressure Mean 91 Pulse Ox 94 95 93 Oxygen Delivery Method 08/28/22 18:00 08/28/22 18:10 08/28/22 18:15 Temperature Temperature Source Pulse Rate 68 69 69 Respiratory Rate 23 H 19 H 16 Blood Pressure 120/83 H 128/81 H Blood Pressure Mean 95 96 Pulse Ox 89 94 95 Oxygen Delivery Method 08/28/22 18:20 Temperature Temperature Source Pulse Rate 68 Respiratory Rate 21 H Blood Pressure Blood Pressure Mean Pulse Ox 95 Oxygen Delivery Method Positive well nourished and well developed General Appearance ED: well developed HEENT Reports moist mucous membranes Neck supple and no JVD Resp normal respiratory effort and clear to auscultation bilaterally Cardio regular rate and regular rhythm GI normal to inspection, nondistended, normoactive bowel sounds and non-tender Palpation: soft Extremity normal to inspection General Extremety ED: Negative for edema or tenderness General Extremity: Negative for edema Neuro oriented x3, CN's II-XII intact bilaterally and no sensory deficits noted Sensorium / Orientation: alert Motor Exam: strength 5/5 throughout Psych mental status grossly normal Skin no rashes or lesions noted NIHSS NIHSS Initial: 1a Level of Consciousness: 0 1b LOC Questions (Score 2 if aphasic/stupor): 0 1c LOC Commands (Only score 1st attempt): 0 2 Best Gaze (If aphasic, use reflexive mvmts.): 0 3 Visual: 0 4 Facial Palsy: 0 5 Motor Arm Right (UN = amputation/fusion): 0 5 Motor Arm Left: 0 6 Motor Leg Right: 0 6 Motor Leg Left: 0 7 Limb ataxia (Only + if out of proportion): 0 8 Sensory (Aphasia/stupor=0 or 1, coma=2): 0 9 Best Language: 0 10 Dysarthria (mute, coma=2, intubated=UN): 0 11 Extinction and Inattention (only scored if +): 0 Total Score: 0 MDM MDM MDM Narrative Medical decision making narrative: Differential diagnosis includes TIA, stroke, cardiac dysrhythmia, cardiac ischemia, electrolyte abnormality, hypoglycemia, and anemia. CBC will be obtained to assess for leukocytosis and anemia. Basic metabolic profile will be obtained to assess for glucose, electrolyte abnormality, renal function. High- sensitivity troponin will be obtained to assess for cardiac ischemia. PT was INR and PTT will be obtained to assess for coagulopathy. EKG will be obtained to assess for cardiac dysrhythmia and cardiac ischemia. CT scan of the brain will be obtained to assess for intracranial bleeding. CTA of the head and neck will be obtained to assess for stroke, large vessel occlusion, and carotid stenosis. Chest x-ray will be obtained to assess for pneumonia and congestive heart failure. History & Record Review Discussion w/independent historian: Patient and Family Additional record(s) reviewed:: Prior labs Lab Data Attestation: I reviewed the patient's lab results. Lab results narrative: CBC was reviewed and was within normal limits. PT with INR and PTT were reviewed and were normal. Basic metabolic profile was reviewed and was normal. High-sensitivity troponin was reviewed and was normal at 10. Labs: Laboratory Results - last 24 hr 08/28/22 08/28/22 16:49 17:00 WBC 10.1 RBC 4.99 Hgb 14.6 Hct 44.5 MCV 89.2 MCH 29.3 MCHC 32.8 RDW Std Deviation 45.3 H RDW Coeff of Rachael 14.1 Plt Count 268 MPV 10.2 Immature Gran % (Auto) 1.300 H Neut % (Auto) 69.2 Lymph % (Auto) 16.4 L Tom[place]kins % (Auto) 9.6 Eos % (Auto) 2.8 Baso % (Auto) 0.7 Absolute Neuts (auto) 7.0 Absolute Lymphs (auto) 1.66 Nucleated RBC % 0 PT 13.5 INR 1.0 APTT 29.3 Sodium 142 Potassium 3.7 Chloride 110 H Carbon Dioxide 28.0 Anion Gap 4 L BUN 12 Creatinine 1.12 Estim Creat Clear Calc 57.94 Est GFR (MDRD) Af Amer 82 Est GFR (MDRD) Non-Af 68 BUN/Creatinine Ratio 10.7 Glucose 132 H Calcium 8.9 Troponin I High Sens 10 POC Glucose 148 H Radiography Chest X-Ray - ED: 1 View, Read by ED Physician, Read by Radiologist and No Acute Disease Diagnostic Testing: Clinical Impression(s) from Imaging Studies Brain CT 08/28/22 16:54 IMPRESSION: No acute abnormality on noncontrast CT. CT angiogram and/or MRI recommended to evaluate for acute infarct, as clinically indicated. Chronic microvascular ischemic disease. Electronically Signed: Enma Blanco MD at 17:07 EDT , ADDENDUM: 08/28/22 1721 IMPRESSION: No acute abnormality on noncontrast CT. CT angiogram and/or MRI recommended to evaluate for acute infarct, as clinically indicated. Chronic microvascular ischemic disease. N.B. : The above Results were Read Back by Enma Blanco MD to Osorio Flores DO, and understanding confirmed on 08/28/2022 17:14:08 (ET). Electronically Signed: Enma Blanco MD at 17:07 EDT , Head/Neck CTA 08/28/22 16:55 IMPRESSION: Enlarged heterogeneous thyroid. Recommend nonemergent thyroid ultrasound. Otherwise Normal CTA Head and neck with contrast. Electronically Signed: Sumanth Hansen MD at 17:32 EDT , ADDENDUM: 08/28/22 1742 IMPRESSION: Enlarged heterogeneous thyroid. Recommend nonemergent thyroid ultrasound. Otherwise Normal CTA Head and neck with contrast. N.B. : The above Results were Read Back by Sumanth Hansen MD to Osorio Flores MD, and understanding confirmed on 08/28/2022 17:35:52 (ET). Electronically Signed: Sumanth Hansen MD at 17:32 EDT , Chest X-Ray 08/28/22 17:20 IMPRESSION: No evidence of active intrathoracic disease. Electronically Signed: Enma Blanco MD at 17:42 EDT , Portable 1 view chest x-ray was obtained. On my independent interpretation, lung gallegos are clear. There is normal cardiac silhouette. Bony thorax is normal. There is no acute process noted. Radiologist also interpreted the x- ray and agrees. CT scan of the brain was obtained. There is no acute intracranial abnormality. This was interpreted by the radiologist and was also independently reviewed by myself. CTA of the head and neck was obtained. There is no acute large vessel occlusion. There is no significant stenosis. This was interpreted by the radiologist and was also independently reviewed by myself. EKG Initial EKG: Attestation: I personally reviewed and interpreted this EKG as follows: Interpretation: Sinus Rhythm (With first-degree AV block with a rate of 79) and Non-Specific ST Changes Comments: EKG was obtained. On my independent interpretation, it shows a sinus rhythm with a first-degree AV block with a rate of 79. RI interval was 234 ms. QRS interval was slightly prolonged at 146 ms. QTc interval was 479 ms. [place] was normal at 94. There are nonspecific ST-T wave changes noted. Prior EKG tracings: available for review Prior: Unchanged (08/31/2020) Management Discussion w/another healthcare provider: Hospitalist Treatment and Re-Evaluation Narrative: Patient was evaluated by stroke neurologist. They did not recommend ad ministering thrombolytics at this time due to the NIH score of 0. They recommended giving the patient 300 mg of Plavix. This was ordered. Patient is still asymptomatic on reevaluation. Patient was advised of the need for admission for further work-up. Patient is agreeable with this. Case was discussed with the hospitalist. He will admit the patient to his service. Patient understood and was agreeable with plan. All questions were answered. Stroke Documentation Questions Stroke Team Activated: Yes Reviewed Inclusion/Exclusion criteria: Yes Was Patient considered for Endovascular Intervention?: No-CTA negative, determined not to be an endovascular candidate IV Thrombolytic Administered: No Critical Care Time Critical Care Time: Yes Critical care time (excluding procedures): 30-74 minutes (33), Including time spent:, Discussing w/Patient &/or Family/Client Success Specialist, Discussing w/Consultants, Arranging Admission or Transfer and Performing Direct Patient Care at Bedside Discharge Plan Dx/Rx/DC Orders Clinical Impression: TIA (transient ischemic attack), High blood pressure Disposition Disposition: Acute Care Hospital [facility] Discharge Date/Time: 08/28/22 20:41
[2022-08-28] MEDS: Clopidogrel Bisulfate 300 MG Tablet PO (18:38)
--- NOTE | 2022-08-28 19:03 | ECHOD_ITS ---
Reason For Study: TIA/STROKE Procedure This was a 2D Doppler, Color Flow transthoracic echocardiogram. Exam performed portable in patient room. Left Ventricle Normal LV size. Left ventricular systolic function is normal. Normal diastology for age. The estimated ejection fraction is 60 %. No regional wall motion abnormalities noted. Right Ventricle Normal RV size. Normal systolic function. Atria Normal left atrium. Normal right atrium. Bubble contrast study negative for right to left interatrial shunt. Mitral Valve The mitral valve is structurally normal. No prolapse or stenosis seen. Mild (1+) mitral valve insufficiency. Tricuspid Valve Normal tricuspid valve. Trivial tricuspid valve insufficiency. Right ventricular systolic pressure estimated to be 21 mmHg. Aortic Valve Trisinus/trileaflet aortic valve. Trivial aortic valve insufficiency. Pulmonic Valve The pulmonic valve is not well visualized. Great Vessels Mildly dilated aortic root. Pericardium/Pleural No pericardial effusion. Medication Performed a rapid injection of agitated mix of 9 cc saline and 1cc air to assess for atrial septal defect. MMode/2D Measurements & Calculations Ao root diam: 4.2 cm LAV(MOD-bp): 52.7 ml LVAd ap4: 33.6 cm2 LAV(MOD-bp) Indexed: 22.5 ml/m2 LVLd ap4: 8.7 cm LAV(MOD-sp2): 58.3 ml EDV(MOD-sp4): 106.1 ml LAV(MOD-sp4): 44.4 ml EDV(sp4-el): 110.0 ml LVAs ap4: 18.4 cm2 LVLs ap4: 7.0 cm ESV(MOD-sp4): 42.1 ml ESV(sp4-el): 41.2 ml EF(MOD-sp4): 60.4 % EF(sp4-el): 62.6 % SV(MOD-sp4): 64.1 ml SV(sp4-el): 68.8 ml LA A4 area: 18.5 cm2 TAPSE: 2.3 cm RA A4 area: 21.5 cm2 Time Measurements MV dec time: 0.26 sec Doppler Measurements & Calculations MV E max anthony: 80.4 cm/sec Lat Peak E' Anthony: 9.8 cm/sec Med Peak E' Anthony: 8.2 cm/sec MV A max anthony: 94.8 cm/sec E/E' lat: 8.2 E/E' med: 9.8 MV E/A: 0.85 MV V2 max: 105.6 cm/sec MV dec slope: 313.4 cm/sec2 Ao V2 max: 137.4 cm/sec MV max P.5 mmHg Ao max P.6 mmHg MV V2 mean: 67.4 cm/sec Ao V2 mean: 96.5 cm/sec MV mean P.0 mmHg Ao mean P.2 mmHg MV V2 VTI: 38.1 cm Ao V2 VTI: 31.6 cm AV (velocity ratio): 0.79 LV V1 max: 109.2 cm/sec TR max anthony: 214.3 cm/sec LV V1 max P.8 mmHg TR max P.4 mmHg LV V1 mean P.7 mmHg LV V1 mean: 78.1 cm/sec LV V1 VTI: 24.9 cm ECHO/Echo Complete Interpretation Summary The estimated ejection fraction is 60 %. Left ventricular systolic function is normal. Mild (1+) mitral valve insufficiency. Trivial tricuspid valve insufficiency. Trivial aortic valve insufficiency. Mildly dilated aortic root. Bubble contrast study negative for right to left interatrial shunt. Ordering Physician: Suzi Ballesteros Referring Physician: Uzair Yoon Performed By: Karina Melgar RCS
--- NOTE | 2022-08-28 19:09 | PCM.HP.STD ---
HPI - General General Date of Admission: 08/28/22 Date of Service: 08/28/22 Chief Complaint: Slurring of speech HPI Narrative JET MENDEZ, is a 77 M who presents to the emergency department with a few hours history of slurring of speech. On further and direct questioning of family it appears this was more of confusion and personality change and some slurring/nonsensical speech. By the time patient arrived to the emergency department his symptoms had completely resolved and patient was completely back to baseline. Denied any weakness or numbness in any of his extremities or difficulty with gait or balance. Denied any fever or chills. Had a similar episode about a year ago. [facility] Medical History 1st degree AV block Back pain GERD (gastroesophageal reflux disease) Gout High blood pressure Impaired hearing Rheumatoid arthritis Home Medications allopurinol 300 mg tablet 300 mg PO DAILY 12/23/18 [History Last Taken 08/30/20] aspirin 81 mg chewable tablet 81 mg PO DAILY 12/23/18 [History Last Taken 08/30/20] bxndjqka-bx-ahudq 300 mcg-K 60 mcg-lycop 600 mcg-lutein 300 mcg tablet 1 ea PO DAILY 12/23/18 [History Last Taken 08/30/20] omeprazole 20 mg capsule,delayed release 1 tab PO DAILY 12/23/18 [History Last Taken 08/30/20] cholecalciferol (vitamin D3) 125 mcg (5,000 unit) tablet (Vitamin D3) 125 mcg PO DAILY 08/30/20 [History Last Taken 08/30/20] mecobalamin (vitamin B12) 1,000 mcg chewable tablet (B12 Active) 1,000 mcg PO DAILY 08/30/20 [History Last Taken 08/30/20] ondansetron 4 mg disintegrating tablet 8 mg (2 x 4 mg) PO Q8H PRN PRN Nausea #20 tabs 03/02/22 [Rx Last Taken Unknown] vancomycin 125 mg capsule See Rx Instructions .Route .COMPLEX #86 caps 03/02/22 [Rx Last Taken Unknown] Allergy/AdvReac Type Severity Reaction Status Date / Time Penicillins [PCN] Allergy Unknown Verified 08/28/22 19:17 Sulfa (Sulfonamide Allergy Unknown Verified 08/28/22 19:17 Antibiotics) Family History Father CVA (cerebral vascular accident) Surgical History History of left heart catheterization (08/31/20) Social History Smoking Status: Never smoker ROS ROS Narrative Denies any chest pain or shortness of breath. All other systems reviewed and essentially negative as above in the body of the history Vital Signs Vital Signs Vital Signs: 08/28/22 16:54 08/28/22 16:54 08/28/22 17:17 Temperature 36.5 C L Temperature Source Temporal Pulse Rate 73 77 Respiratory Rate 14 13 Blood Pressure 132/88 H 132/88 H Blood Pressure Mean 102 102 Pulse Ox 94 94 Oxygen Delivery Method Room Air Room Air Room Air 08/28/22 17:24 08/28/22 17:30 08/28/22 18:00 Temperature Temperature Source Pulse Rate 71 70 67 Respiratory Rate 20 H 18 18 Blood Pressure 120/87 H 125/83 H 120/83 H Blood Pressure Mean 98 97 95 Pulse Ox 93 94 93 Oxygen Delivery Method Room Air Room Air Room Air 08/28/22 17:42 08/28/22 17:45 08/28/22 17:50 Temperature Temperature Source Pulse Rate 70 68 71 Respiratory Rate 27 H 18 26 H Blood Pressure 120/78 Blood Pressure Mean 91 Pulse Ox 94 95 93 Oxygen Delivery Method 08/28/22 18:00 08/28/22 18:10 08/28/22 18:15 Temperature Temperature Source Pulse Rate 68 69 69 Respiratory Rate 23 H 19 H 16 Blood Pressure 120/83 H 128/81 H Blood Pressure Mean 95 96 Pulse Ox 89 94 95 Oxygen Delivery Method 08/28/22 18:20 Temperature Temperature Source Pulse Rate 68 Respiratory Rate 21 H Blood Pressure Blood Pressure Mean Pulse Ox 95 Oxygen Delivery Method Weight Weight: 122.2 kg Body Mass Index (BMI) 37.7 Physical Exam Narrative General exam. Elderly man, obese, mostly centrally. Not in any overt distress. Very pleasant HEENT. Oral mucosa moist no pallor jaundice Skin. Maculopapular rash on extensor surfaces of both upper extremities and on both legs as well. Neck. Neck is supple Heart. Physical sounds are no murmurs Lungs. Clear to auscultation. Abdomen. Morbidly obese, nontender no masses felt MANAGER INFORMATION. Conscious and alert and oriented x3. Cranial nerves II to XII grossly intact. Power 5 out of 5 in all extremities. Speech is fluent and cognition is intact. Results Medical Records Data Attestation: I reviewed the patient's medical records Lab / Micro Data Attestation: I reviewed the patient's lab results. 08/28/22 17:00 08/28/22 17:00 Labs: Laboratory Results - last 24 hr 08/28/22 16:49: POC Glucose 148 H 08/28/22 17:00: WBC 10.1, RBC 4.99, Hgb 14.6, Hct 44.5, MCV 89.2, MCH 29.3, MCHC 32.8, RDW Std Deviation 45.3 H, RDW Coeff of Rachael 14.1, Plt Count 268, MPV 10.2, Immature Gran % (Auto) 1.300 H, Neut % (Auto) 69.2, Lymph % (Auto) 16.4 L, [place] % (Auto) 9.6, Eos % (Auto) 2.8, Baso % (Auto) 0.7, Absolute Neuts (auto) 7.0, Absolute Lymphs (auto) 1.66, Nucleated RBC % 0, PT 13.5, INR 1.0, APTT 29.3, Sodium 142, Potassium 3.7, Chloride 110 H, Carbon Dioxide 28.0, Anion Gap 4 L, BUN 12, Creatinine 1.12, Estim Creat Clear Calc 57.94, Est GFR (MDRD) Af Amer 82, Est GFR (MDRD) Non-Af 68, BUN/Creatinine Ratio 10.7, Glucose 132 H, Calcium 8.9, Troponin I High Sens [address] 08/28/22 16:54 IMPRESSION: No acute abnormality on noncontrast CT. CT angiogram and/or MRI recommended to evaluate for acute infarct, as clinically indicated. Chronic microvascular ischemic disease. Electronically Signed: Enma Blanco MD at 17:07 EDT , ADDENDUM: 08/28/22 1721 IMPRESSION: No acute abnormality on noncontrast CT. CT angiogram and/or MRI recommended to evaluate for acute infarct, as clinically indicated. Chronic microvascular ischemic disease. N.B. : The above Results were Read Back by Enma Blanco MD to Osorio Flores DO, and understanding confirmed on 08/28/2022 17:14:08 (ET). Electronically Signed: Enma Blanco MD at 17:07 EDT , Head/Neck CTA 08/28/22 16:55 IMPRESSION: Enlarged heterogeneous thyroid. Recommend nonemergent thyroid ultrasound. Otherwise Normal CTA Head and neck with contrast. Electronically Signed: Sumanth Hansen MD at 17:32 EDT Reading Location ID and State: [facility] / [place] , Service support , ADDENDUM: 08/28/22 1742 IMPRESSION: Enlarged heterogeneous thyroid. Recommend nonemergent thyroid ultrasound. Otherwise Normal CTA Head and neck with contrast. N.B. : The above Results were Read Back by Sumanth Hansen MD to Osorio Flores MD, and understanding confirmed on 08/28/2022 17:35:52 (ET). Electronically Signed: Sumanth Hansen MD at 17:32 EDT , Chest X-Ray 08/28/22 17:20 IMPRESSION: No evidence of active intrathoracic disease. Electronically Signed: Enma Blanco MD at 17:42 EDT , Assessment & Plan Assessment/Plan (1) TIA (transient ischemic attack): PLAN: Plan Assessment and plan 1. Transient episode of confusion and slurring of speech. Differential would include transient ischemic attack or perhaps complex partial seizure. CT of the head and neck negative for any large vessel occlusions. Will place on stroke care path and complete work-up with brain MRI and echocardiogram. Neurology consult. Physical Occupational Therapy and speech therapy to evaluate. Check EEG. Screen for other stroke risk factors including dyslipidemia and diabetes. Continue baby aspirin and to start on moderate intensity statin. 2. morbid obesity. Lifestyle modifications as able. Charges/Coding Visit Charges Inpatient E&M: 20908 Init Hosp L3
[2022-08-28] MEDS: Atorvastatin Calcium 80 MG Tablet PO (23:51)
[2022-08-29 00:53] VITALS: BP 141/78; PULSE 68; RESP 16; TEMP 36.4; O2SAT 94
[2022-08-29 04:05] VITALS: O2SAT 98
[2022-08-29 04:53] VITALS: BP 131/94; PULSE 67; RESP 18; TEMP 36.3; O2SAT 96
[2022-08-29 06:30] LABS: Absolute Lymphocyte Count 1.12 X10^3/uL (0.83-4.51); Absolute Neutrophil Count 4.5 X10^3/uL (2.0-7.7); Basophil# 0.07 X10^3/uL; Eosinophil# 0.26 X10^3/uL; Eosinophils% 3.8 % (0-5); Hematocrit 42.4 % (40-54); Hemoglobin 14.1 g/dL (13.0-16.5); Lymphocyte # 1.12 X10^3/ul (0.83-4.51); Lymphocyte % 16.5 % (19-41); Mean Corp Hgb Conc 33.3 g/dL (32-36); Mean Corpuscular Hgb 29.6 pg (27.0-32.0); Mean Corpuscular Volume 88.9 fL (80-94); Mean Platelet Vol. 10.4 fl (6.2-12.0); Monocyte# 0.74 X10^3/uL; Monocyte% 10.9 % (0-10); NRBC Flagged by Analyzer 0 % (0-5); Neutrophil # 4.48 X10^3/uL (2.7-7.7); Neutrophil % 66.3 % (47-70); Platelet Count 214 K/mm3 (150-450); RBC Distribution Width CV 14.1 % (11.6-14.6); RBC Distribution Width SD 45.7 fl (35.1-43.9); Red Blood Count 4.77 M/mm3 (4.6-6.2); White Blood Count 6.8 K/mm3 (4.4-11.0)
[2022-08-29 07:18] LABS: ALB/GLOB Ratio 0.9 RATIO (0.9-2.4); AST(SGOT) 20 U/L (15-37); Alanine Aminotransfer ALT/SGPT 17 U/L (16-61); Albumin, Serum 2.9 g/dL (3.2-5.0); Alkaline Phosphatase 70 U/L (45-117); Anion Gap 6 (5-15); BUN 11 mg/dL (7-18); BUN/Creat Ratio 13.5 RATIO (10-20); Calcium,Total 8.4 mg/dL (8.5-10.1); Chloride 110 mmol/L (98-107); Cholesterol 148 mg/dL (200); Creatinine, Serum 0.81 mg/dL (0.70-1.30); EST Glomerular Filtration Rate 98 mL/min (>60); Est Glom Filt Rate - Afr Amer 119 mL/min (>60); Estimated Creatinine Clearance 82.63 ml/min; Globulin 3.1 g/dL (2.2-4.2); Glucose 138 mg/dL (74-106); High Density Lipoprotein 28 mg/dL; Potassium 3.8 mmol/L (3.5-5.1); Sodium Level 143 mmol/L (136-145); Triglycerides 223 mg/dL; Very Low Density Lipoprotein 45 mg/dL (5-40)
[2022-08-29 07:25] VITALS: O2SAT 98
--- NOTE | 2022-08-29 07:29 | PCM.PN.HOSP ---
Reason for Visit Reason for Visit: Diagnoses Transient cerebral ischemic attack, unspecified (08/28/22) Subjective Subjective Feels well. States he was in his garage moving items (tasks that he has done many times before) until he felt unwell. His son arrived and noted that the patient was slurring his words and directed the patient to the ED. Objective Data Objective Data Vital Signs: Vital Signs Temp Pulse Resp BP Pulse Ox O2 Del Method 36.3 C L 67 18 131/94 H 96 Room Air 08/29/22 04:53 08/29/22 04:53 08/29/22 04:53 08/29/22 04:53 08/29/22 04:53 08/29/22 04:53 Oxygen Delivery Method Room Air Weight: 119.5 kg Body Mass Index (BMI) 36.7 Intake & Output: Intake and Output for Last 24 Hours 08/27/22 08/28/22 08/29/22 23:59 23:59 23:59 Intake Total 360 / 360 0 / 0 Balance 360 / 360 0 / 0 Lab / Micro Data 08/29/22 05:17 08/29/22 05:17 Labs: Laboratory Results - last 24 hr 08/28/22 16:49: POC Glucose 148 H 08/28/22 17:00: WBC 10.1, RBC 4.99, Hgb 14.6, Hct 44.5, MCV 89.2, MCH 29.3, MCHC 32.8, RDW Std Deviation 45.3 H, RDW Coeff of Rachael 14.1, Plt Count 268, MPV 10.2, Immature Gran % (Auto) 1.300 H, Neut % (Auto) 69.2, Lymph % (Auto) 16.4 L, [place] % (Auto) 9.6, Eos % (Auto) 2.8, Baso % (Auto) 0.7, Absolute Neuts (auto) 7.0, Absolute Lymphs (auto) 1.66, Nucleated RBC % 0, PT 13.5, INR 1.0, APTT 29.3, Sodium 142, Potassium 3.7, Chloride 110 H, Carbon Dioxide 28.0, Anion Gap 4 L, BUN 12, Creatinine 1.12, Estim Creat Clear Calc 57.94, Est GFR (MDRD) Af Amer 82, Est GFR (MDRD) Non-Af 68, BUN/Creatinine Ratio 10.7, Glucose 132 H, Calcium 8.9, Troponin I High Sens 10 08/29/22 05:17: WBC 6.8, RBC 4.77, Hgb 14.1, Hct 42.4, MCV 88.9, MCH 29.6, MCHC 33.3, RDW Std Deviation 45.7 H, RDW Coeff of Rachael 14.1, Plt Count 214, MPV 10.4, Immature Gran % (Auto) 1.500 H, Neut % (Auto) 66.3, Lymph % (Auto) 16.5 L, [place] % (Auto) 10.9 H, Eos % (Auto) 3.8, Baso % (Auto) 1.0, Absolute Neuts (auto) 4.5, Absolute Lymphs (auto) 1.12, Nucleated RBC % 0, Sodium 143, Potassium 3.8, Chloride 110 H, Carbon Dioxide 27.0, Anion Gap 6, BUN 11, Creatinine 0.81, Estim Creat Clear Calc 82.63, Est GFR (MDRD) Af Amer 119, Est GFR (MDRD) Non-Af 98, BUN/Creatinine Ratio 13.5, Glucose 138 H, Calcium 8.4 L, Total Bilirubin 0.70, AST 20, ALT 17, Alkaline Phosphatase 70, Total Protein 6.0 L, Albumin 2.9 L, Globulin 3.1, Albumin/Globulin Ratio 0.9, Triglycerides 223 H, Cholesterol 148, LDL Cholesterol 75, VLDL Cholesterol 45 H, HDL Cholesterol 28 L Radiography Diagnostic Testing: Radiology Impression Brain CT 08/28/22 16:54 IMPRESSION: No acute abnormality on noncontrast CT. CT angiogram and/or MRI recommended to evaluate for acute infarct, as clinically indicated. Chronic microvascular ischemic disease. Electronically Signed: Enma Blanco MD at 17:07 EDT , ADDENDUM: 08/28/22 5678 IMPRESSION: No acute abnormality on noncontrast CT. CT angiogram and/or MRI recommended to evaluate for acute infarct, as clinically indicated. Chronic microvascular ischemic disease. N.B. : The above Results were Read Back by Enma Blanco MD to Osorio Flores DO, and understanding confirmed on 08/28/2022 17:14:08 (ET). Electronically Signed: Enma Blanco MD at 17:07 EDT , Head/Neck CTA 08/28/22 16:55 IMPRESSION: Enlarged heterogeneous thyroid. Recommend nonemergent thyroid ultrasound. Otherwise Normal CTA Head and neck with contrast. Electronically Signed: Sumanth Hansen MD at 17:32 EDT , ADDENDUM: 08/28/22 1742 IMPRESSION: Enlarged heterogeneous thyroid. Recommend nonemergent thyroid ultrasound. Otherwise Normal CTA Head and neck with contrast. N.B. : The above Results were Read Back by Sumanth Hansen MD to Osorio Flores MD, and understanding confirmed on 08/28/2022 17:35:52 (ET). Electronically Signed: Sumanth Hansen MD at 17:32 EDT , Chest X-Ray 08/28/22 17:20 IMPRESSION: No evidence of active intrathoracic disease. Electronically Signed: Enma Blanco MD at 17:42 EDT , Physical Exam Const alert and no apparent distress HEENT head/scalp atraumatic Neuro moves all extremities and no focal motor deficits Sensorium / Orientation: awake and alert Psych affect normal Assessment & Plan Assessment/Plan (1) TIA (transient ischemic attack): PLAN: Transient episode of confusion and slurring of speech. Differential would include transient ischemic attack or perhaps complex partial seizure. CT of the head and neck negative for any large vessel occlusions. MRI negative EEG negative Echo pending Evaluated by [facility] teleneurology: pt loaded w 300 of clopidogrel and recommended ASA 81 and Clopidogrel 75 for 21 days, then continue ASA 81. Continue HIS PLAN: Plan Chronic conditions: HTN pinched thoracic nerve root gout: allopurinol VTE prophylaxis: LMWH. Charges/Coding Visit Charges Inpatient E&M: 82288 [facility] Hosp L3
[2022-08-29 08:53] VITALS: BP 137/101; PULSE 54; RESP 16; TEMP 36.2; O2SAT 95
--- NOTE | 2022-08-29 09:00 | MRI_ITS ---
EXAM: MR HEAD WITHOUT INTRAVENOUS CONTRAST CLINICAL INDICATION: TIA, slurred speech, confusion TECHNIQUE: Multiplanar and multisequence MR images of the brain were obtained without intravenous contrast. COMPARISON: CT head without contrast 08/28/2022. FINDINGS: BRAIN AND EXTRA-AXIAL SPACES: Multiple T2 FLAIR hyperintensity foci in the white matter of both cerebral hemispheres are chronic white matter ischemic changes. No intra- or extra-axial hemorrhage. No intracranial mass or mass effect. Posterior fossa structures are unremarkable. Ventricles are appropriate for age. No hydrocephalus. Basal cisterns are patent. No diffusion restriction to suspect acute or subacute ischemic infarct. No remote cortical-based ischemic infarct. No old lacunar cystic infarct. SELLA: Unremarkable. Normal sella turcica, pituitary gland, infundibular stalk, optic chiasm and hypothalamus. AUDITORY SYSTEM: Unremarkable. The internal auditory canals are patent. BONES/JOINTS: Unremarkable. No discrete lytic or blastic abnormalities. SINUSES: Small focal mucosal thickening in the medial wall of the right maxillary sinus and in the anterior wall of the right maxillary sinus are unchanged. Minimal mucosal thickening in the sphenoid sinuses. Normal remaining paranasal sinuses. MASTOID AIR CELLS: Unremarkable as visualized. Clear. ORBITS: Unremarkable as visualized. Both globes, extraocular muscles, optic nerves and retrobulbar fat appear unremarkable. VASCULATURE: Unremarkable as visualized. Normal flow voids in the major intracranial circulation. MRI/Brain without Contrast IMPRESSION: 1. No MRI evidence of recent or remote ischemic infarcts or acute intracranial abnormality. 2. Chronic white matter ischemic changes in both cerebral hemispheres. Electronically Signed: Barry Ramirez MD at 10:56 EDT ,
[2022-08-29] MEDS: Enoxaparin 40 MG/0.4 ML Syringe SC (10:35)
[2022-08-29] MEDS: Allopurinol 300 MG Tablet PO (10:35)
[2022-08-29] MEDS: Aspirin 81 MG TAB.CHEW PO (10:35)
[2022-08-29 12:10] LABS: Vitamin B12 278 pg/mL (211-911)
--- NOTE | 2022-08-29 14:51 | CHAPLAIN ---
Type of Pastoral Visit _x__ Initial Visit ___ Follow-up Visit ___ On-call Visit ___ General Patient Visit ___ Spiritual Assessment ___ Family Conference ___ Bereavement ___ Rapid Response ___ Code Blue ___ Other (describe below) Pastoral Care Referral From _x__ Patient ___ Family ___ Nurse ___ Physician ___ Sweater Operator ___ Balance Staff Staker ___ Other (describe below) Sacrament/Intervention _x__ Active listening ___ Anointing ___ Adventism ___ Bereavement ___ Communion _x__ Danielle exploration ___ _x__ Life review _x__ Prayer ___ Reconciliation ___ Sacrament of Sick ___ Supportive presence ___ Wedding ___ Other (describe below) Pastoral Comments patient is welcoming and talks much about his health evaluation and what it means to him; pt uses many stories to give life review and his perspective on life and danielle; pt has examples of spiritual insights that he continues to share; patient asks for prayer; spouse of pt is with him in the room;
[2022-08-29 15:00] VITALS: BP 128/83; PULSE 65; RESP 18; TEMP 36.2; O2SAT 95
--- NOTE | 2022-08-29 15:22 | CASEMGMT ---
MICHAEL CM in to complete GRAF Form with patient. RN SAURABH explained GRAF Form to patient, patient voiced understanding. Patient signed GRAF Form and filed in chart. Patient provided copy of signed GRAF form. Patient denied needs at discharge. Patient had no further questions or concerns at this time.
--- NOTE | 2022-08-29 16:24 | DCINST_ITS ---
Discharge Instructions Diet Discharge Diet: Low fat / Low cholesterol Dressing / Incision Call your doctor if you observe: - (difficulty speaking. unilateral weakness. ) Follow Up Care Test Results: Test results from this visit will be discussed in further detail at your follow- up appointment, if applicable. Discharge Plan Admission Admit Date/Time: 08/28/22 19:05 Primary Reason for Your Visit: TIA Attending Provider: Osorio Holcomb Primary Care Provider: Uzair Yoon Consulting Providers: Suzi Ballesteros Instructions Additional Instructions / Restrictions: You may have a TIA (aka, a mini-stroke). You will be on aspirin and clopidogrel for 3 weeks, then stop clopidogrel and continue taking aspirin. You will also be on atorvastatin. Follow up with neurology. Discharge Orders/Prescriptions Prescriptions: New clopidogrel 75 mg tablet 75 mg PO DAILY Qty: 21 0RF atorvastatin 40 mg tablet 40 mg PO QHS Qty: 30 0RF Continued omeprazole 20 MG capsule,delayed release(DR/EC) 1 tab PO DAILY aspirin 81 MG tablet,chewable 81 mg PO DAILY allopurinol 300 MG tablet 300 mg PO DAILY [id number]-[id number] 1 EACH tablet 1 ea PO DAILY cholecalciferol (vitamin D3) [Vitamin D3] 125 mcg (5,000 unit) Tablet 125 mcg PO DAILY mecobalamin (vitamin B12) [B12 Active] 1,000 mcg Tablet,Chewable 1,000 mcg PO DAILY ondansetron 4 mg tablet,disintegrating 8 mg PO Q8H PRN PRN (Reason: Nausea) Qty: 20 0RF Discontinued vancomycin 125 mg capsule See Rx Instructions .ROUTE .COMPLEX Qty: 86 0RF Rx Instructions: 1 cap po q6h x 14d; then 1 cap po q12h x 7d; then 1 cap po daily x 7d; then 1 cap po q3d x 4wk Referrals / Follow Up: Uzair Yoon DO [Primary Care Provider] - Within 2 Weeks [facility] [Provider Group] Disposition Disposition (needs filled in before D/C Order can be placed): Home, Self Care
--- NOTE | 2022-09-05 16:50 | DS.PCM_ITS ---
Providers Date of Admission: 08/28/22 Primary Care Physician: Dr. Uzair Yoon DO Reason For Visit: TIA, Diagnosis Discharge Diagnosis (1) TIA (transient ischemic attack): Status: Acute Code(s): G45.9 - Transient cerebral ischemic attack, unspecified Plan: Transient episode of confusion and slurring of speech. Differential would include transient ischemic attack or perhaps complex partial seizure. CT of the head and neck negative for any large vessel occlusions. MRI negative EEG negative Echo pending Evaluated by [facility]: pt loaded w 300 of clopidogrel and recommended ASA 81 and Clopidogrel 75 for 21 days, then continue ASA 81. Continue HIS Plan Chronic conditions: * HTN * pinched thoracic nerve root * gout: allopurinol VTE prophylaxis: LMWH. Medications at Discharge Home Medications allopurinol 300 mg tablet 300 mg PO DAILY 12/23/18 aspirin 81 mg chewable tablet 81 mg PO DAILY 12/23/18 [id number]-kz-ooqqy 300 mcg-K 60 mcg-lycop 600 mcg-lutein 300 mcg tablet 1 ea PO DAILY 12/23/18 omeprazole 20 mg capsule,delayed release 1 tab PO DAILY 12/23/18 cholecalciferol (vitamin D3) 125 mcg (5,000 unit) tablet (Vitamin D3) 125 mcg PO DAILY 08/30/20 mecobalamin (vitamin B12) 1,000 mcg chewable tablet (B12 Active) 1,000 mcg PO DAILY 08/30/20 ondansetron 4 mg disintegrating tablet 8 mg (2 x 4 mg) PO Q8H PRN PRN Nausea #20 tabs 03/02/22 atorvastatin 40 mg tablet 40 mg PO QHS #30 tabs 08/29/22 clopidogrel 75 mg tablet 75 mg PO DAILY #21 tabs 08/29/22 Weight / BMI Weight Weight: 119.5 kg Body Mass Index (BMI) 36.7 ABG / Lab / Microbiology Data 08/29/22 05:17 08/29/22 05:17 D/C Instructions Discharge Diet: Low fat / Low cholesterol Call your doctor if you observe: - (difficulty speaking. unilateral weakness. ) Meaningful Use Info Meaningful Use Diagnoses (Choose all that apply): Ischemic CVA CVA Therapy Assessed for PT,OT and/or ST?: Yes Ischemic Stroke Antithrombotic order at d/c?: Yes Dx of Atrial fib/flutter?: No Anticoagulant at discharge?: No Reason anticoagulant not ordered: Procedure not Indicated Statins at discharge?: Yes Primary Dx Acute Ischemic CVA?: Yes IV thrombolytic ordered during stay?: No Reason IV thrombolytic not ordered: Medical Contraindication Discharge Plan Admission Admit Date/Time: 08/28/22 19:05 Primary Reason for Your Visit: TIA Attending Provider: Osorio Holcomb Primary Care Provider: Uzair Yoon Consulting Providers: Suzi Ballesteros Instructions Additional Instructions / Restrictions: You may have a TIA (aka, a mini-stroke). You will be on aspirin and clopidogrel for 3 weeks, then stop clopidogrel and continue taking aspirin. You will also be on atorvastatin. Follow up with neurology. Discharge Orders/Prescriptions Prescriptions: New clopidogrel 75 mg tablet 75 mg PO DAILY Qty: 21 0RF atorvastatin 40 mg tablet 40 mg PO QHS Qty: 30 0RF Continued omeprazole 20 MG capsule,delayed release(/EC) 1 tab PO DAILY aspirin 81 MG tablet,chewable 81 mg PO DAILY allopurinol 300 MG tablet 300 mg PO DAILY [id number]-[id number] 1 EACH tablet 1 ea PO DAILY cholecalciferol (vitamin D3) [Vitamin D3] 125 mcg (5,000 unit) Tablet 125 mcg PO DAILY mecobalamin (vitamin B12) [B12 Active] 1,000 mcg Tablet,Chewable 1,000 mcg PO DAILY ondansetron 4 mg tablet,disintegrating 8 mg PO Q8H PRN PRN (Reason: Nausea) Qty: 20 0RF Discontinued vancomycin 125 mg capsule See Rx Instructions .ROUTE .COMPLEX Qty: 86 0RF Rx Instructions: 1 cap po q6h x 14d; then 1 cap po q12h x 7d; then 1 cap po daily x 7d; then 1 cap po q3d x 4wk Other Ambulatory Orders: 30 Day Event Recorder Preventi (Urgent) Timeframe: 1 Day Facility: [facility] - Location: Cardiovascular Services Ordered By: Dr. Osorio Holcomb Referrals / Follow Up: [facility] [Provider Group] Uzair Yoon DO [Primary Care Provider] - Within 2 Weeks Disposition Disposition (needs filled in before D/C Order can be placed): Home, Self Care Charges/Coding Visit Charges Inpatient E&M: 51426 Disch Hosp
== END 2022-08-29 17:42 | disposition home or self-care (01) ==
LOC: ED 18:48 → PCU 19:10
PROVIDERS: Admitting Provider Internal Medicine; Emergency Provider Emergency Medicine; PCP Family Medicine
DX: G45.9 Transient cerebral ischemic attack, unspecified (principal); M06.9 Rheumatoid arthritis, unspecified; E66.01 Morbid (severe) obesity due to excess calories; R47.81 Slurred speech; R41.0 Disorientation, unspecified; M10.9 Gout, unspecified; I10 Essential (primary) hypertension; Z79.82 Long term (current) use of aspirin; Z68.37 Body mass index [BMI] 37.0-37.9, adult; Z79.899 Other long term (current) drug therapy; K21.9 Gastro-esophageal reflux disease without esophagitis
CPT/HCPCS: 36415; 70450; 70496; 70498; 70551; 71045; 80048; 80053; 80061; 82607; 82962; 84484; 85025; 85610; 85730; 93005; 93306; 94762; 95819; 96372; 99221; 99285; Q9957; Q9967; G0378

== ENCOUNTER 2023-03-27 07:17 | Emergency (ER) | payer MEDICARE, BC, SELFPAY ==
[2023-03-27 07:18] VITALS: BP 150/94; PULSE 61; RESP 20; TEMP 35.7; O2SAT 100; BMI 36.3
--- NOTE | 2023-03-27 07:32 | RAD_ITS ---
STUDY: X-RAY CHEST REASON FOR EXAM: Male, 77 years old. Dyspnea TECHNIQUE: Single AP portable view of the chest. COMPARISON: Comparison is made with prior study dated August 28, 2022. FINDINGS: EKG electrodes are seen. Mild increased markings at the lung bases suggestive of scarring. There is no demonstrated pleural abnormality. Normal size heart. Normal mediastinum and jasmine. Normal visualized pulmonary arteries. There is atherosclerotic tortuosity of the aortic arch and descending thoracic aorta. There are diffuse degenerative changes of the visualized thoracic spine. There is evidence of calcific tendinitis of the right shoulder. There is no demonstrated abnormality of the visualized soft tissue structures of the upper abdomen. RAD/Chest 1 View (Portable) IMPRESSION: Stable mild degree of increased linear markings at the lung bases suggestive of scarring. Electronically Signed: Wilman Beaver MD at 8:22 EST ,
--- NOTE | 2023-03-27 07:38 | ED.VIS.DYS ---
HPI History of Present Illness Chief Complaint: Shortness of Breath Detail of Chief Complaint: Shortness of breath Informant: patient Narrative Narrative: Patient presents to the emergency department with complaint of shortness of breath that he first noticed last evening. Patient states [place] with help from his grandson. Last evening he did his daily exercises while lying in bed and moving his legs and stretching and such and felt somewhat short of breath. This morning he woke up and describes shortness of breath while on the computer. Patient states he could not get air and felt like he was gasping. He denies recent travel or surgery. He denied any chest pain but did have some faint burning in the center of the chest that he thought was related to GERD. Patient has history of hypertension and high cholesterol. No heart history. Patient states that he had a heart cath within the last couple of years that was unremarkable. He has no cardiac stents. No history of PE or DVT. Currently feels improved compared to this morning. He denies recent illness or fever or cough. No history of anxiety or panic disorder. [facility] Medical History 1st degree AV block Back pain GERD (gastroesophageal reflux disease) Gout High blood pressure Impaired hearing Rheumatoid arthritis Home Medications allopurinol 300 mg tablet 300 mg PO DAILY 12/23/18 [History Last Taken 08/30/20] aspirin 81 mg chewable tablet 81 mg PO DAILY 12/23/18 [History Last Taken 08/30/20] [id number] 300 mcg-K 60 mcg-lycop 600 mcg-lutein 300 mcg tablet 1 ea PO DAILY 12/23/18 [History Last Taken 08/30/20] omeprazole 20 mg capsule,delayed release 1 tab PO DAILY 12/23/18 [History Last Taken 08/30/20] cholecalciferol (vitamin D3) 125 mcg (5,000 unit) tablet (Vitamin D3) 125 mcg PO DAILY 08/30/20 [History Last Taken 08/30/20] mecobalamin (vitamin B12) 1,000 mcg chewable tablet (B12 Active) 1,000 mcg PO DAILY 08/30/20 [History Last Taken 08/30/20] ondansetron 4 mg disintegrating tablet 8 mg (2 x 4 mg) PO Q8H PRN PRN Nausea #20 tabs 03/02/22 [Rx Last Taken Unknown] atorvastatin 40 mg tablet 40 mg PO QHS #30 tabs 08/29/22 [Rx Last Taken Unknown] clopidogrel 75 mg tablet 75 mg PO DAILY #21 tabs 08/29/22 [Rx Last Taken Unknown] Allergy/AdvReac Type Severity Reaction Status Date / Time Penicillins [PCN] Allergy Unknown Verified 03/27/23 07:33 Sulfa (Sulfonamide Allergy Unknown Verified 03/27/23 07:33 Antibiotics) Family History Father CVA (cerebral vascular accident) Surgical History History of left heart catheterization (08/31/20) Social History Smoking Status: Never smoker ROS ROS ED Review of Systems ROS Unobtainable: other Constitutional Constitutional ED: Reports lethargy; Denies chills, fever(s), sweats or weight loss Eyes Eyes: Denies blurry vision, change in vision or diplopia ENT ENT ED: Denies rhinorrhea or sore throat Cardiovascular Cardiovascular: Denies chest pain, orthopnea or racing heartbeat Respiratory/Chest Respiratory/Chest: Reports dyspnea and dyspnea on exertion; Denies cough, orthopnea or sputum Gastrointestinal Gastrointestinal: Denies abdominal pain, diarrhea, nausea or vomiting Genitourinary Genitourinary ED: Denies dysuria, hematuria or urinary frequency Musculoskeletal Musculoskeletal: Denies arthralgias, back pain, myalgias or neck pain Integumentary Denies abscess, Abrasions or rash Neurologic Neurologic: Denies headache(s) or weakness Psychiatric Psychiatric: Denies anxiety, depression or suicidal thoughts Endocrine Endocrinology: Denies polydipsia, polyphagia or polyuria Hematologic/Lymphatic Hematologic/Lymphatic: Denies easy bleeding, easy bruising or lymphadenopathy Allergic/Immunologic Allergic/Immunologic ED: Denies mouth swelling, tongue swelling or urticaria EXAM Physical Exam Const Vital Signs: 03/27/23 07:18 03/27/23 07:43 03/27/23 07:44 Temperature 96.2 F L Temperature Source Temporal Pulse Rate 61 Respiratory Rate 20 H Respiratory Effort Normal Respiratory Depth Normal Respiratory Pattern Normal Blood Pressure 150/94 H Blood Pressure Mean 112 Pulse Ox 100 Oxygen Delivery Method Room Air Room Air Room Air Positive well nourished and well developed General Appearance ED: well developed and NAD HEENT Reports TM's clear and moist mucous membranes normocephalic and atraumatic; Negative for trauma or tenderness Tympanic Membrane ED: Yes TM's clear Eyes PERRL and EOMs intact bilaterally General Eye ED: Negative for pale conjunctiva or scleral icterus Neck no lymphadenopathy, supple and no JVD General: Negative for tenderness Chest Wall inspection of chest normal and palpation of chest normal Chest: Negative for tenderness Resp normal respiratory effort and clear to auscultation bilaterally Effort and Inspection: Negative for respiratory distress or pain with movement Auscultation: Negative for rhonchi, wheezes or diminished lung sounds Cardio regular rate, regular rhythm, S1 normal heart sound, S2 normal heart sound and no murmurs Peripheral Pulses: pulses 2+ throughout GI normal to inspection, nondistended, normoactive bowel sounds, soft to palpation, non-tender, non-distended and no masses Back/Spine no CVA tenderness and no thoracic nor lumbar tenderness Extremity normal to inspection General Extremety ED: Negative for edema General Extremity: Negative for edema Neuro oriented x3, CN's II-XII intact bilaterally, no sensory deficits noted and gait normal Sensorium / Orientation: awake, alert, oriented to person, oriented to place and oriented to time Motor Exam: strength 5/5 throughout and strength abnormal Psych mental status grossly normal Skin no rashes or lesions noted and no wounds MDM MDM MDM Narrative Medical decision making narrative: Patient presents with dyspnea started last evening. In the differential would be infectious etiology versus acute coronary syndrome versus PE or anxiety reaction. IV line established. EKG obtained on arrival showed a sinus rhythm with rate of 58 bpm with right bundle branch block. CBC with differential showed a white count of 8.2 with hemoglobin 14.8 and platelet count of 219. Chemistries unremarkable. BUN 14 and creatinine 1.06. BNP was normal at 34. Initial troponin was 10 and delta troponin also 10. D-dimer was normal at 0.38. Patient was ambulated in the department and did not drop his O2 sat. Clinically he feels well. Now he is asking if I think he may have hyperventilated and certainly I suspect this is a possibility as well as anxiety or panic disorder. Clinically he looks well and he is essentially asymptomatic currently. Will discharge to home. I do not feel he is having acute coronary syndrome especially in light of recent within the last 2 and half years heart catheterization that was unremarkable with only minimal luminal irregularities of 30%. Patient did not describe any chest pain and has negative troponin x 2 here. Advised to return if increasing shortness of breath, chest pain, or condition should worsen anyway. Lab Data Attestation: I reviewed the patient's lab results. Labs: Laboratory Results - last 24 hr 03/27/23 03/27/23 07:35 09:35 WBC 8.2 RBC 5.13 Hgb 14.8 Hct 45.1 MCV 87.9 MCH 28.8 MCHC 32.8 RDW Std Deviation 44.1 H RDW Coeff of Rachael 13.6 Plt Count 219 MPV 10.2 Immature Gran % (Auto) 1.000 H Neut % (Auto) 66.8 Lymph % (Auto) 17.7 L [place] % (Auto) 9.1 Eos % (Auto) 4.5 Baso % (Auto) 0.9 Absolute Neuts (auto) 5.5 Absolute Lymphs (auto) 1.45 Nucleated RBC % 0 D-Dimer Quant (PE/DVT) 0.38 Sodium 141 Potassium 4.1 Chloride 109 H Carbon Dioxide 28.0 Anion Gap 4 L BUN 14 Creatinine 1.06 Estim Creat Clear Calc 77.48 Est GFR (MDRD) Af Amer 87 Est GFR (MDRD) Non-Af 72 BUN/Creatinine Ratio 13.2 Glucose 144 H Calcium 9.1 Troponin I High Sens 10 10 B-Natriuretic Peptide 34.3 Radiography Chest X-Ray - ED: 1 View Diagnostic Testing: Clinical Impression(s) from Imaging Studies Chest X-Ray 03/27/23 07:32 IMPRESSION: Stable mild degree of increased linear markings at the lung bases suggestive of scarring. Electronically Signed: Wilman Beaver MD at 8:22 EST , 1 view chest x-ray obtained interpreted by myself as no evidence of infiltrate or pneumothorax or acute disease process. Radiology in agreement. EKG Initial EKG: Attestation: I personally reviewed and interpreted this EKG as follows: Comments: Sinus rhythm with first-degree AV block with ventricular rate of 58 bpm with right bundle branch block morphology Prior EKG tracings: available for review Prior: Unchanged Discharge Plan Triage Chief Complaint: Shortness of Breath ED Provider: Drew Natarajan Dx/Rx/DC Orders Clinical Impression: Acute dyspnea Instructions: ED Dyspnea Prescriptions: No Action omeprazole 20 MG capsule,delayed release(DR/EC) 1 tab PO DAILY aspirin 81 MG tablet,chewable 81 mg PO DAILY allopurinol 300 MG tablet 300 mg PO DAILY [id number] 1 EACH tablet 1 ea PO DAILY cholecalciferol (vitamin D3) [Vitamin D3] 125 mcg (5,000 unit) Tablet 125 mcg PO DAILY mecobalamin (vitamin B12) [B12 Active] 1,000 mcg Tablet,Chewable 1,000 mcg PO DAILY ondansetron 4 mg tablet,disintegrating 8 mg PO Q8H PRN PRN (Reason: Nausea) Qty: 20 0RF clopidogrel 75 mg tablet 75 mg PO DAILY Qty: 21 0RF atorvastatin 40 mg tablet 40 mg PO QHS Qty: 30 0RF Primary Care Provider: Sunitha Garrett Referrals: Uzair Yoon DO [Med Staff - Program Management Specialist] - 2 Days Disposition Disposition: Home, Self Care
[2023-03-27 07:43] VITALS: O2SAT 100
[2023-03-27] MEDS: Aspirin 81 MG TAB.CHEW 162 MG PO (07:48)
[2023-03-27 07:49] LABS: Absolute Lymphocyte Count 1.45 X10^3/uL (0.83-4.51); Absolute Neutrophil Count 5.5 X10^3/uL (2.0-7.7); Basophil# 0.07 X10^3/uL; Basophil% 0.9 % (0-1); Eosinophil# 0.37 X10^3/uL; Eosinophils% 4.5 % (0-5); Hematocrit 45.1 % (40-54); Hemoglobin 14.8 g/dL (13.0-16.5); Lymphocyte # 1.45 X10^3/ul (0.83-4.51); Lymphocyte % 17.7 % (19-41); Mean Corp Hgb Conc 32.8 g/dL (32-36); Mean Corpuscular Hgb 28.8 pg (27.0-32.0); Mean Corpuscular Volume 87.9 fL (80-94); Mean Platelet Vol. 10.2 fl (6.2-12.0); Monocyte# 0.75 X10^3/uL; Monocyte% 9.1 % (0-10); NRBC Flagged by Analyzer 0 % (0-5); Neutrophil # 5.49 X10^3/uL (2.7-7.7); Neutrophil % 66.8 % (47-70); Platelet Count 219 K/mm3 (150-450); RBC Distribution Width CV 13.6 % (11.6-14.6); RBC Distribution Width SD 44.1 fl (35.1-43.9); Red Blood Count 5.13 M/mm3 (4.6-6.2); White Blood Count 8.2 K/mm3 (4.4-11.0)
[2023-03-27 08:13] LABS: Anion Gap 4 (5-15); BUN 14 mg/dL (7-18); BUN/Creat Ratio 13.2 RATIO (10-20); Calcium,Total 9.1 mg/dL (8.5-10.1); Chloride 109 mmol/L (98-107); Creatinine, Serum 1.06 mg/dL (0.70-1.30); EST Glomerular Filtration Rate 72 mL/min (>60); Est Glom Filt Rate - Afr Amer 87 mL/min (>60); Estimated Creatinine Clearance 77.48 ml/min; Glucose 144 mg/dL (74-106); Potassium 4.1 mmol/L (3.5-5.1); Sodium Level 141 mmol/L (136-145); Troponin-I HS 10 pg/mL (3.0-78.0)
[2023-03-27 08:14] LABS: BNP,B-Type NATRIURETIC PEPTIDE 34.3 pg/mL (0-100)
--- OUTSIDE RECORDS SUMMARY | 2023-03-27 08:15 | XMS RPT_ITS | CCD ---
Author Name Unknown Address [address] [place] [address] [employer] [id number] [place] [address] Organization [facility] Care Team Providers Care Slip Tender Name Role Phone KONSTANTINJO ANN Unavailable Unavailable ALIYAH CORADO Unavailable Unavailable SAPNA ALMEIDA Unavailable Unavailable Talampas , Denise Stern Primary Care Provider JING JOHANSEN Attending Unavailable GODINEZ, NAVNEET Referring Unavailable TALAMPAS, DENISE D Primary Care Unavailable GODINEZ, NAVNEET Referring Unavailable TALAMPAS, DENISE D Primary Care Unavailable GODINEZ, NAVNEET Referring Unavailable TALAMPAS, DENISE D Primary Care Unavailable TALAMPAS, DENISE D Attending Unavailable TALAMPAS, DENISE D Primary Care Unavailable TALAMPAS, DENISE D Attending Unavailable TALAMPAS, DENISE D Primary Care Unavailable TALAMPAS, DENISE D Primary Care Unavailable EMMIE HUGHES Attending Unavailable TALAMPAS, DENISE D Primary Care Unavailable TALAMPAS, DENISE D Referring Unavailable TALAMPAS, DENISE D Primary Care Unavailable DEBORAH VALDEZ Attending Unavailable TALAMPAS, DENIES D Referring Unavailable TALAMPAS, DENISE D Primary Care Unavailable TALAMPAS, DENISE D Referring Unavailable TALAMPAS, DENISE D Primary Care Unavailable Allergies Allergy Classification Reported Allergen(s) Allergy Type Date of Onset Reaction(s) Facility (12 sources) Penicillins; Translations: [PENICILLINS] Propensity to adverse reactions [address] [place] [address] Work Phone: (12 sources) Sulfonamides (Antibiotic); Translations: [SULFA (SULFONAMIDE ANTIBIOTICS)] Propensity to adverse reactions 5 [facility] Work Phone: Medications Completed/Discontinued Medications Medication Drug Class(es) Dates Sig (Normalized) Sig (Original) allopurinol 300 mg oral tablet (11 sources) Xanthine Oxidase Inhibitor Start: 03-28-2018 End: 09-01-2022 take 1 tablet by mouth once daily allopurinol (ZYLOPRIM) 300 mg tablet Indications: Hyperuricemia Take 1 tablet by mouth once daily. 90 tablet 3 09/01/2022 Active Problems Active Problems Problem Classification Problem Date Documented Date Episodic/Chronic Conditions associated with dizziness or vertigo (1 source) Lightheadedness; Translations: [Dizziness and giddiness] 01-09-2023 Episodic Esophageal disorders (12 sources) Gastroesophageal reflux disease; Translations: [Gastro-esophageal reflux disease without esophagitis] 02-07-2016 Chronic Gout and other crystal arthropathies (10 sources) Gout; Translations: [Gout, unspecified] Onset: 08-14-2005 01-07-2017 Chronic Other aftercare (2 sources) Patient encounter status; Translations: [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] Episodic Other connective tissue disease (5 sources) Muscle weakness; Translations: [Muscle weakness (generalized)] Onset: 07-31-2022 Episodic Other connective tissue disease (5 sources) Pain in right lower limb; Translations: [Pain in right leg] Onset: 07-31-2022 Episodic Other connective tissue disease (1 source) Muscle weakness (generalized); Translations: [Weakness of trunk musculature] Onset: 07-31-2022 Episodic Other connective tissue disease (1 source) Pain in right leg; Translations: [Pain of right lower extremity] Onset: 07-31-2022 Episodic Other nervous system disorders (10 sources) Disorder of the peripheral nervous system; Translations: [Hereditary and idiopathic neuropathy, unspecified] Onset: 11-28-2004 01-07-2017 Chronic Other nutritional; endocrine; and metabolic disorders (2 sources) Obesity; Translations: [Other obesity due to excess calories] Onset: 02-07-2005 01-05-2018 Chronic Other nutritional; endocrine; and metabolic disorders (9 sources) Obesity caused by energy imbalance; Translations: [Other obesity due to excess calories] Onset: 02-07-2005 Chronic Other nutritional; endocrine; and metabolic disorders (1 source) Cholesterol level - finding; Translations: [Lipoprotein deficiency] Chronic Other nutritional; endocrine; and metabolic disorders (1 source) Other obesity due to excess calories; Translations: [Class 2 obesity due to excess calories without serious comorbidity with body mass index (BMI) of 36.0 to 36.9 in adult] Onset: 01-06-2018 Chronic Other nutritional; endocrine; and metabolic disorders (1 source) Body mass index (BMI) 36.0-36.9, adult; Translations: [Class 2 obesity due to excess calories without serious comorbidity with body mass index (BMI) of 36.0 to 36.9 in adult] Onset: 01-06-2018 Chronic Other nutritional; endocrine; and metabolic disorders (1 source) Lipoprotein deficiency; 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)] Onset: 07-22-2022 Chronic Other nutritional; endocrine; and metabolic disorders (1 source) Hyperuricemia; Translations: [Hyperuricemia without signs of inflammatory arthritis and tophaceous disease] 09-01-2022 Episodic Other skin disorders (1 source) Eruption; Translations: [Rash and other nonspecific skin eruption] 10-02-2022 Episodic Transient cerebral ischemia (4 sources) Transient cerebral ischemia; Translations: [Transient cerebral ischemic attack, unspecified] Onset: 10-05-2022 10-02-2022 Chronic Past or Other Problems Problem Classification Problem Date Documented Da te Episodic/Chronic Diabetes mellitus without complication (12 sources) Prediabetes; Translations: [Prediabetes] Onset: 08-08-2011 02-07-2016 Episodic Fracture of lower limb (10 sources) Fracture of foot ; Translations: [Unspecified fracture of right foot, sequela] Onset: 02-20-2016 01-07-2017 Episodic Other aftercare (1 source) Other prison (current) drug therapy; Translations: [Encounter for long-term current use of medication] Onset: 07-22-2022 Episodic Other non-epithelial cancer of skin (10 sources) History of malignant neoplasm of skin; Translations: [Personal history of other malignant neoplasm of skin] Onset: 04-12-2006 06-13-2010 Episodic Other screening for suspected conditions (not mental disorders or infectious disease) (10 sources) Blood chemistry abnormal; Translations: [Other specified abnormal findings of blood chemistry] Onset: 02-07-2005 02-14-2021 Episodic Spondylosis; intervertebral disc disorders; other back problems (20 sources) Lumbar radiculopathy; Translations: [Radiculopathy, lumbar region] Onset: 08-08-2011 Episodic Results Test Name Value Interpretation Reference Range Facil ity Vital Signs Date Time Vital Sign Value Performing Clinician Sue dupree 01-09-2023 07:11-0500 Body weight 112.31 kg Emmie Camachoer PA-C Work Phone: [facility] 01-09-2023 07:11-0500 Diastolic blood pressure 75 mm[Hg] Emmie er PA-C Work Phone: [facility] 01-09-2023 07:11-0500 Heart rate 67 /min Emmie Camachoer PA-C Work Phone: [facility] 01-09-2023 07:11-0500 Respiratory rate 18 /min Emmie Camachoer PA-C Work Phone: [facility] 01-09-2023 07:11-0500 SaO2% (BldA) [Mass fraction] 99 % Emmie Camachoer PA-C Work Phone: [facility] 01-09-2023 07:11-0500 Systolic blood pressure 110 mm[Hg] Emmiemoni Camachoer PA-C Work Phone: [facility] 10-05-2022 14:35-0400 Body weight 117.75 kg Deborah Dahlhausen DIGITAL EDITOR.[employer] Work Phone: [facility] 10-05-2022 14:35-0400 Diastolic blood pressure 78 mm[Hg] Deborah Dahlhausen DIGITAL EDITOR.[employer] Work Phone: [facility] 10-05-2022 14:35-0400 Heart rate 68 /min Deborah Dahlhausen DIGITAL EDITOR.[employer] Work Phone: [facility] 10-05-2022 14:35-0400 Respiratory rate 20 /min Deborah Dahlhausen DIGITAL EDITOR.[employer] Work Phone: [facility] 10-05-2022 14:35-0400 SaO2% (BldA) [Mass fraction] 94 % Deborah Dahlhausen DIGITAL EDITOR.[employer] Work Phone: [facility] 10-05-2022 14:35-0400 Systolic blood pressure 144 mm[Hg] Deborah Valdez LAKSHMI Work Phone: [facility] 09-01-2022 16:10-0400 Body temperature 98.6 [degF] Denise Garrett MD Work Phone: [facility] 09-01-2022 16:10-0400 Body weight 117.94 kg Denise Garrett MD Work Phone: [facility] 09-01-2022 16:10-0400 Diastolic blood pressure 62 mm[Hg] Denise Garrett MD Work Phone: [facility] 09-01-2022 16:10-0400 Heart rate 76 /min Denise Garrett MD Work Phone: [facility] 09-01-2022 16:10-0400 Respiratory rate 18 /min Denise Garrett MD Work Phone: [facility] 09-01-2022 16:10-0400 SaO2% (BldA) [Mass fraction] 96 % Denise Garrett MD Work Phone: [facility] 09-01-2022 16:10-0400 Systolic blood pressure 112 mm[Hg] Denise Garrett MD Work Phone: [facility] 07-22-2022 11:23-0400 Body weight 116.57 kg Denise Garrett MD Work Phone: [facility] 07-22-2022 11:23-0400 Diastolic blood pressure 76 mm[Hg] Denise Garrett MD Work Phone: [facility] 07-22-2022 11:23-0400 Heart rate 72 /min Denise Garrett MD Work Phone: [facility] 07-22-2022 11:23-0400 Respiratory rate 16 /min Denise Garrett MD Work Phone: [facility] 07-22-2022 11:23-0400 Systolic blood pressure 134 mm[Hg] Denise Garrett MD Work Phone: [facility] 07-21-2022 10:21-0400 Body temperature 97.5 [degF] Navneet Godinez DIGITAL EDITOR.[employer] Work Phone: [facility] 07-21-2022 10:21-0400 Body weight 119.02 kg Navneet Godinez DIGITAL EDITOR.[employer] Work Phone: [facility] 07-21-2022 10:21-0400 Diastolic blood pressure 74 mm[Hg] Navneet Godinez DIGITAL EDITOR.[employer] Work Phone: [facility] 07-21-2022 10:21-0400 Heart rate 70 /min Navneet Godinez DIGITAL EDITOR.[employer] Work Phone: [facility] 07-21-2022 10:21-0400 Respiratory rate 16 /min Navneet Godinez DIGITAL EDITOR.[employer] Work Phone: [facility] 07-21-2022 10:21-0400 SaO2% (BldA) [Mass fraction] 95 % Navneet Godinez DIGITAL EDITOR.[employer] Work Phone: [facility] 07-21-2022 10:21-0400 Systolic blood pressure 128 mm[Hg] Navneet Godinez DIGITAL EDITOR.[employer] Work Phone: [facility] Encounters Encounter Date Encounter Type Care Provider Facility Start: 01-09-2023 End: 01-09-2023 ambulatory EMMIE HUGHES Facility:[facility] Start: 01-09-2023 End: 01-09-2023 Patient encounter procedure Emmie Hughes PA-C Work Phone: Neurology Plan of Treatment Date Care Activity Detail Author Start: 08-28-2028 Urine microalbumin profile [facility] Start: 11-06-2025 Diabetes Screening Diabetes Screenin g [facility] Start: 09-11-2025 DIABETES SCREEN DIABETES SCREEN [facility] Start: 01-21-2023 End: 03-23-2023 CBC panel - Blood by Automated count CBC Lab Routine Encounter for long-term current use of medication Expected: 01/21/2023 (Approximate), Expires: 03/23/2023 [facility] Work Phone: Immunizations Immunization Date Immunization Notes Care Provider Manolo erazo 05-17-2022 pneumococcal (PCV20) vaccine, 20 valent (PREVNAR 20) [facility] Work Phone: 05-17-2022 zoster vaccine recombinant [facility] Work Phone: 12-16-2021 influenza (aIIV4) vaccine, age 65+ yr, quadrivalent, PF (FLUAD QUAD) [facility] Work Phone: 12-16-2021 influenza virus vacc ine, unspecified formulation Emmie Hughes PA-C Work Phone: [facility] 08-28-2018 tetanus toxoid, redu nati diphtheria toxoid, and acellular pertussis vaccine, adsorbed [facility] Work Phone: 12-25-2017 influenza, high dose seasonal, preservative-free Navneet Godinez DIGITAL EDITOR.[employer] Work Phone: [facility] 01-05-2017 influenza, high dose seasonal, preservative-free Navneet Godinez DIGITAL EDITOR.[employer] Work Phone: [facility] 08-16-2016 pneumococcal conjuga te vaccine, 13 valent Navneet Godinez DIGITAL EDITOR.[employer] Work Phone: [facility] 02-07-2016 influenza, high dose seasonal, preservative-free Navneet Godinez DIGITAL EDITOR.[employer] Work Phone: [facility] 12-26-2011 influenza virus vacc ine, unspecified formulation Navneet Godinez DIGITAL EDITOR.[employer] Work Phone: [facility] Work Phone: 08-08-2011 pneumococcal polysaccharide vaccine, 23 valent Navneet Godinez DIGITAL EDITOR.[employer] Work Phone: [facility] Work Phone: 08-08-2011 zoster vaccine, live Navneet Godinez DIGITAL EDITOR.[employer] Work Phone: [facility] Work Phone: 12-16-2010 influenza virus vacc ine, unspecified formulation Navneet Godinez DIGITAL EDITOR.[employer] Work Phone: [facility] 06-13-2010 tetanus toxoid, redu nati diphtheria toxoid, and acellular pertussis vaccine, adsorbed Navneet Godinez DIGITAL EDITOR.[employer] Work Phone: [facility] Work Phone: 12-29-2009 influenza virus vacc ine, unspecified formulation Navneet Godinez DIGITAL EDITOR.[employer] Work Phone: [facility] Work Phone: 06-19-2000 diphtheria and tetan us toxoids, adsorbed for pediatric use Navneet Godinez DIGITAL EDITOR.[facility] Work Phone: [facility] Work Phone: Payers Date Payer Category Payer Medicare [id number] 2015 Medicare [id number] 2015 Unknown [place] [id number] 2015-Present [phone] [address] [place] [address] Indemnity [id number] 2011 Medicare MEDICARE MEDICAR E A AND B [id number] 2011-Present [phone] [address] [address] [place] [address] Medicare [id number] 2011 Medicare [id number] Social History Date Type Detail Facility Start: 07-21-2022 Tobacco smoking stat us PAIS Never smoked tobacco [facility] Start: 07-21-2022 Tobacco use and exposure Smokeless tobacco non-user [facility] Start: 07-21-2022 End: 01-09-2023 Alcohol intake Current non-drinker of alcohol (finding) [facility] Start: 07-21-2022 Tobacco Comment 40 years ago a nd only smoked moderatley for 2months [facility] Start: 1945 Sex Assigned At Not on file [facility] Start: 01-25-2020 End: 07-22-2022 History of Social function [facility] Work Phone: Start: 01-25-2020 End: 07-22-2022 Tobacco use panel [facility] Work Phone: Adult Depression Screening Assessment 0 [facility] Work Phone: Clinical Notes 07-21-2022 to 01-09-2023 Patient InstructionsEmmie Hughes PA-C - 01/09/2023 7:15 AM CARLOSCoNavneet martínez LPN - 01/09/2023 7:05 AM ESTPatient InstructionsDeborah Valdez APRN.[employer] - 10/05/2022 2:30 PM EDT Note Date & Type Note Facility 01-09-2023 Note HNO ID: [id number] Author: Emmie Hughes PA-C Service: ? Author Type: Physician Land Management Supervisor Type: Progress Notes Filed: 01/09/2023 8:27 AM Note Text: ESTABLISHED PATIENT VISIT Last visit: 10/05/22 Assessment/Plan: G45.9 TIA (transient ischemic attack) Comment: Pt with pmh GERD, sciatica, neuropathy, prediabetes presenting today for follow-up after TIA. Patient reports that on 08/28/2022 he experienced slurred speech. He was taken to the ED where testing was completed including CTA, MRI, and echocardiogram. Imaging was unremarkable. Additionally, lipid panel noting LDL of 59. A1c previously ordered but not yet completed. monitor technician was ordered following DC and he reports he is currently awaiting results. He was discharged on DAPT and after 3 weeks was instructed to continue ASA monotherapy. He was also prescribed atorvastatin. Today he reports resolution of all symptoms and no further recurrence. Recommend continuing ASA 81mg and Lipitor 40mg for stroke prevention. Goals at this time include BP <140/90 and BG <140. Recommend adequate physical activity within patient limitations. Follow-up regularly with PCP for management of risk factors including HTN, HLD, DM. Reviewed red flag sx and when to call 911 and present to ED. Note, I have asked him to send the results of his secured entrance monitor to the office after they are obtained for further review. Follow up in three months or sooner should new or worsening symptoms occur. Deborah Valdez APRN.[employer] CHIEF COMPLAINT: follow up HISTORY OF PRESENT ILLNESS: Jet Bautista is a 77 year old male, BMI 35.53 kg/m2 with a PMH significant for GERD, obesity, gout, TIA. Chart review: Saw Deborah 10/05/22 for TIA, episode of off balance and dizzy on August 28. Had slurred speech at ER but then resolved. Started on DAPT for three weeks from ER adn continued ASA and atorvastatin. MRI no stroke. Was awaiting results of heart monitor. No recurrence. Patient presents for follow-up. Since last appointment in September notes that he has had a few episodes of lightheadedness, but no slurred speech, vision changes, weakness or other neurologic symptoms. States that these lasted for a few seconds and were typically when he was overexerting himself in the barn, states that he believes he was not drinking much water at that time. Unsure if they were after standing up for long periods of standing. No other significant symptoms with it does not believe it occurs when sitting. Notes he has had this also in the past with his angina. Still taking aspirin, no longer taking Plavix. Does note 1 fall since last appointment, states that he was walking on his tractor and forgot he had a bucket him up, hit the bucket and fell off his tractor. No loss of conscious or significant head injury, did obtain an abrasion to the left forehead but this is resolved and healed, no headaches or personality change, confusion or altered mental status. No other falls. Density will go about half a day without drinking water, wakes up and his mouth is always dry. Has history of perhaps mild sleep apnea in the past but did not wear machine. Last LDL was 66, blood pressure is well maintained, A1c was 6.7. States that he is trying to lose weight. Denies any significant lightheadedness with standing. No other new symptoms or concerns today. REVIEW OF SYSTEMS GENERAL:No weight loss, malaise or fevers. HEENT:Negative for frequent or significant headaches, No changes in hearing or vision, no nose bleeds or other nasal problems NECK:Negative for lumps, goiter, pain and significant neck swelling RESPIRATORY: Negative for cough, wheezing or shortness of breath. CARDIOVASCULAR: Negative for chest pain, leg swelling or palpitations. GASTROINTESTINAL: Negative for abdominal discomfort, blood in stools or black stools or change in bowel habits GENITOURINARY: No history of dysuria, frequency or incontinence MUSCULOSKELETAL: Negative for joint pain or swelling, back pain or muscle pain. NEUROLOGIC:Negative for focal numbness or weakness, headaches and dizziness or syncope, vision changes, speech/languag changes - EXCEPT that as per HPI above. SKIN:Negative for lesions, rash, and itching. PSYCHIATRIC: Negative for sleep disturbance, mood disorder and recent psychosocial stressors. HEMATOLOGIC/LYMPHATIC/IMMUNOLOGI C:Negative for prolonged bleeding, bruising easily or swollen nodes. ENDOCRINE: Negative for cold or heat intolerance, polyuria, polydipsia and goiter. The remainder of the ROS was reviewed and is negative. LAB/IMAGING: Those performed since patient's last visit have been reviewed. MRI brain 09/29/22 CTA brain and neck MEDICATIONS: Omeprazole Magnesium (PRILOSEC OTC) 20 mg tablet Take 1 tablet by mouth daily before breakfast. 1/2 hr before meal. atorvastatin (LIPITOR) 40 mg tablet Take 1 tablet by mouth once daily. allopurinol (ZYLOPRIM) 300 mg tablet (more content not included)... [facility] 01-09-2023 Note HNO ID: [id number] Author: Navneet Patton LPN Service: ? Author Type: LICENSED NURSE Type: Progress Notes Filed: 01/09/2023 8:27 AM Note Text: 01/08/2023 PROMIS Global Health Physical Health Summary Physical health: Good Everyday physical activity, ability: Mostly Fatigue: Moderate Pain level: 5 General health: Good Social activities/roles, ability: Good Physical Health T-Score 42.3 (Good) Physical Health Percentile 22 PROMIS Global Health Mental Health Summary Quality of life: Good Mental health (mood,thinking): Good Social satisfaction: Good Emotional problems (anxious,depressed): Sometimes Mental Health T-Score 43.5 (Good) Mental Health Percentile 26 PHQ-9 Score: (Minimal Depression) GALE-7 Score: (Minimal Anxiety) Neuro-Qol Cognitive Function Percentile PROMIS Physical Function Percentile PROMIS Pain Interference Percentile Percentiles provide an indication of how a patient's score ranks in relation to the [place] general population. > 31st percentile is within normal limits or better *< 31st percentile is at least ? SD worse than population, which may be clinically relevant < 16th percentile is at least 1 SD worse than population and warrants attention 01/08/2023 Sleep Apnea Probability Snores loudly: No Tired, fatigued or sleepy in daytime: No Stops breathing or choking/gasping during sleep: No High blood pressure: No Sleep Apnea Probability Score: 66 (Recommend sleep study) [facility] 01-09-2023 Instructions Emmie Hughes PA-C - 01/09/2023 7:23 AM EST Will reach out about aspirin vs plavix. Follow up with primary care provider for enlarged thyroid on imaging. Increase water to 60 ounces during the day Follow up with primary care provider for sleep apnea Go to the emergency room with any new neurologic symptoms including vision loss, speech change, dizziness, weakness or any other neurologic symptoms. Stroke prevention noted below General guidelines for stroke risk factor management, if present Hypertension Target blood pressure <140/90, <130/80 for high risk; normal is 120/80 Hyperlipidemia Target total cholesterol < 200 Target LDL <100, < 70 for high risk Target HDL >45 for men, >55 for women Target triglycerides <150 Diabetes Target HgbA1c <7% Smoking Target is smoking cessation Physical inactivity Target is exercise at least 3 times per week Target waist circumference, in inches is <35 for women and <40 for men documented in this encounter [facility] 01-09-2023 History of Presen t illness Narrative Images from the original note were not included. ESTABLISHED PATIENT VISIT Last visit: 10/05/22 Assessment/Plan: G45.9 TIA (transient ischemic attack) Comment: Pt with pmh GERD, sciatica, neuropathy, prediabetes presenting today for follow-up after TIA. Patient reports that on 08/28/2022 he experienced slurred speech. He was taken to the ED where testing was completed including CTA, MRI, and echocardiogram. Imaging was unremarkable. Additionally, lipid panel noting LDL of 59. A1c previously ordered but not yet completed. monitor technician was ordered following DC and he reports he is currently awaiting results. He was discharged on DAPT and after 3 weeks was instructed to continue ASA monotherapy. He was also prescribed atorvastatin. Today he reports resolution of all symptoms and no further recurrence. Recommend continuing ASA 81mg and Lipitor 40mg for stroke prevention. Goals at this time include BP <140/90 and BG <140. Recommend adequate physical activity within patient limitations. Follow-up regularly with PCP for management of risk factors including HTN, HLD, DM. Reviewed red flag sx and when to call 911 and present to ED. Note, I have asked him to send the results of his secured entrance monitor to the office after they are obtained for further review. Follow up in three months or sooner should new or worsening symptoms occur. Deborah Valdez APRN.[employer] CHIEF COMPLAINT: follow up HISTORY OF PRESENT ILLNESS: Jet Bautista is a 77 year old male, BMI 35.53 kg/m2 with a PMH significant for GERD, obesity, gout, TIA. Chart review: Saw Deborah 10/05/22 for TIA, episode of off balance and dizzy on August 28. Had slurred speech at ER but then resolved. Started on DAPT for three weeks from ER adn continued ASA and atorvastatin. MRI no stroke. Was awaiting results of heart monitor. No recurrence. Patient presents for follow-up. Since last appointment in September notes that he has had a few episodes of lightheadedness, but no slurred speech, vision changes, weakness or other neurologic symptoms. States that these lasted for a few seconds and were typically when he was overexerting himself in the barn, states that he believes he was not drinking much water at that time. Unsure if they were after standing up for long periods of standing. No other significant symptoms with it does not believe it occurs when sitting. Notes he has had this also in the past with his angina. Still taking aspirin, no longer taking Plavix. Does note 1 fall since last appointment, states that he was walking on his tractor and forgot he had a bucket him up, hit the bucket and fell off his tractor. No loss of conscious or significant head injury, did obtain an abrasion to the left forehead but this is resolved and healed, no headaches or personality change, confusion or altered mental status. No other falls. Density will go about half a day without drinking water, wakes up and his mouth is always dry. Has history of perhaps mild sleep apnea in the past but did not wear machine. Last LDL was 66, blood pressure is well maintained, A1c was 6.7. States that he is trying to lose weight. Denies any significant lightheadedness with standing. No other new symptoms or concerns today. REVIEW OF SYSTEMS GENERAL:No weight loss, malaise or fevers. HEENT:Negative for frequent or significant headaches, No changes in hearing or vision, no nose bleeds or other nasal problems NECK:Negative for lumps, goiter, pain and significant neck swelling RESPIRATORY: Negative for cough, wheezing or shortness of breath. CARDIOVASCULAR: Negative for chest pain, leg swelling or palpitations. GASTROINTESTINAL: Negative for abdominal discomfort, blood in stools or black stools or change in bowel habits GENITOURINARY: No history of dysuria, frequency or incontinence MUSCULOSKELETAL: Negative for joint pain or swelling, back pain or muscle pain. NEUROLOGIC:Negative for focal numbness or weakness, headaches and dizziness or syncope, vision changes, speech/languag changes - EXCEPT that as per HPI above. SKIN:Negative for lesions, rash, and itching. PSYCHIATRIC: Negative for sleep disturbance, mood disorder and recent psychosocial stressors. HEMATOLOGIC/LYMPHATIC/IMMUNOLOGI C:Negative for prolonged bleeding, bruising easily or swollen nodes. ENDOCRINE: Negative for cold or heat intolerance, polyuria, polydipsia and goiter. The remainder of the ROS was reviewed and is negative. LAB/IMAGING: Those performed since patient's last visit have been reviewed. MRI brain 09/29/22 CTA brain and neck MEDICATIONS: Omeprazole Magnesium (PRILOSEC OTC) 20 mg tablet Take 1 tablet by mouth daily before breakfast. 1/2 hr before meal. atorvastatin (LIPITOR) 40 mg tablet Take 1 tablet by mouth once daily. allopurinol (ZYLOPRIM) 300 mg tablet Take 1 tablet by mouth once daily. cholecalciferol (VITAMIN D-3) 50 mcg (2,000 unit) tablet Take 2,000 Units by mouth once daily. ascorbic acid (VITAMIN C ORAL) Take by mouth. ibuprofen (MOTRIN) 200 mg tablet Take 3 tablets by mouth three times daily as needed. (some days none, some days 9 pills) Aspirin 81 mg ORAL Tab Take one(1) tablet daily. therapeutic multivitamin ORAL Tab Take one(1) tablet daily. clopidogrel (PLAVIX) 75 mg tablet Take 1 tablet by mouth once daily. HISTORIES PAST MEDICAL HISTORY Diagnosis Date Fracture, foot, right, sequela 2017 difficulty with balance since fractured foot in a fall GERD (gastroesophageal reflux disease) controlled with omeprazole Gout Obesity 02/07/2005 FAMILY HISTORY Problem Relation Age of Onset Heart Mother angina Stroke Father COPD Brother Heart Maternal Grandmother angina SOCIAL HISTORY Social History Tobacco Use Smoking status: Never Smokeless tobacco: Never Tobacco comments: 40 years ago and only smoked moderatley for 2months Substance Use Topics Alcohol use: No Drug use: No PHYSICAL EXAMINATION BP 110/75 Pulse 67 Resp 18 Wt 112.3 kg (247 lb 9.6 oz) SpO2 99% BMI 35.53 kg/m GENERAL EXAM: General appearance: NAD, pleasant. HEENT: NC/AT, nasal congestion absent, no oral lesions, membranes moist. NECK: No masses, supple. Lungs: Breathing comfortably Extr: Moves all extremities without difficulty Skin: Cool to touch. No rash. NEUROLOGICAL EXAM: General: Awake, alert, oriented x3 (person,place,time), speech fluent, no dysarthria; comprehension, naming, repetition intact. 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 CN: PERRL, fundi appear normal including no evidence of papilledema, EOMI and without nystagmus, VFF to confrontation, facial sensation and strength are normal and symmetric, hearing is intact to finger rub bilaterally (hearing aids in place), palate and tongue movements are intact and symmetric. SCM and trapezius strength normal. Motor: Normal tone, bulk and strength (5/5) bilaterally (throughout extremities x4). Reflexes: 2/4 and symmetric, Coordination: FNF intact. Slight intention tremor of the left upper extremity with finger-nose testing Sensation: No evidence of neglect. Gait: Narrow based and stable with normal stride and arm swing. Was able to get up unassisted, but needed both hands on chair. Assessment and Plan: ASSESSMENT/PLAN: 1. TIA (transient ischemic attack) - ICD9: 435.9, ICD10: G45.9 (primary diagnosis) 2. Episodic lightheadedness - ICD9: 780.4, ICD10: R42 Patient compliant with his antiplatelet, has not had any significant neurologic symptoms since last appointment. Does endorse a few episodes of lightheadedness, but this has been a longstanding issue and he did it secondary from overdoing it. Did discuss water intake and states he will go half a day while working outside without drinking water. No room spinning sensation, no slurred speech, vision changes, headaches, weakness associated with this. Notes that it resolved after a few seconds. No other new symptoms or concerns, did have a fall a few weeks ago that was mechanical in nature, did sustain a small head injury, abrasion to the left side of his head. No loss of consciousness, no lightheadedness associated with this fall. No altered mental status, neurologic exam is reassuring today. Discussed that should he fall and hit his head in the future, this will increase his risk for intracranial bleed due to antiplatelet use and to go to the emergency department with any headaches or neurologic symptoms.. Patient agrees and understands. Patient's LDL is well controlled, does have A1c of 6.7 and is managing this with primary care, blood pressure is normal today. No new signs or symptoms that would warrant additional work-up at this time. We will continue antiplatelet and risk factor management. Patient does report history of possible sleep apnea in the past and encouraged to reach out to primary care for further management of this. Did discuss comorbidities associated with untreated sleep apnea and patient is agreeable. Additionally, on CTA of the head and neck there was comment on enlarged thyroid encourage patient to follow-up with primary care for this, possible ultrasound. Patient states that he was unaware of this finding. Did discuss increasing water intake for his episodes of lightheadedness while working outside. No other neurologic symptoms associate with this, unclear etiology. We will have patient go to the emergency department should he experience any other neurologic symptoms, this was discussed at length. Patient agreeable to treatment plan of care at this time, all questions were answered. Patient to follow-up in 6 months or sooner should any symptoms change or worsen. Emmie Hughes PA-C I spent a total of 60 minutes on the date of the service which included preparing to see the patient, [id number] patient care, completing clinical documentation, obtaining and/or reviewing separately obtained history, performing a medically appropriate examination, counseling and educating the patient/family/caregiver, and ordering medications, tests, or procedures. This document has been created with the use of voice recognition technology. It may contain inaccuracies: (e.g. misspellings, inaccurate syntax or word sense) that have escaped review. 01/08/2023 PROMIS Global Health Physical Health Summary Physical health: Good Everyday physical activity, ability: Mostly Fatigue: Moderate Pain level: 5 General health: Good Social activities/roles, ability: Good Physical Health T-Score 42.3 (Good) Physical Health Percentile 22 PROMIS Global Health Mental Health Summary Quality of life: Good Mental health (mood,thinking): Good Social satisfaction: Good Emotional problems (anxious,depressed): Sometimes Mental Health T-Score 43.5 (Good) Mental Health Percentile 26 PHQ-9 Score: (Minimal Depression) GALE-7 Score: (Minimal Anxiety) Neuro-Qol Cognitive Function Percentile PROMIS Physical Function Percentile PROMIS Pain Interference Percentile Percentiles provide an indication of how a patient's score ranks in relation to the [place] general population. > 31st percentile is within normal limits or better *< 31st percentile is at least SD worse than population, which may be clinically relevant < 16th percentile is at least 1 SD worse than population and warrants attention 01/08/2023 Sleep Apnea Probability Snores loudly: No Tired, fatigued or sleepy in daytime: No Stops breathing or choking/gasping during sleep: No High blood pressure: No Sleep Apnea Probability Score: 66 (Recommend sleep study) documented in this encounter [facility] 10-05-2022 Note HNO ID: [id number] Author: Deborah Valdez APRN.CAUL [employer] PULLER Service: ? Author Type: Nurse Practitioner Type: Progress Notes Filed: 10/09/2022 6:31 AM Note Text: [facility] [place] New Patient Visit New Patient Consultation October 05, 2022 HPI: Mr. Bautista presents today secondary to issues of TIA. He states that on August 28 he was working in the garage when he suddenly became very confused and tired. He went to lie down and his son called and he was making no sense on the phone when talking to his son. His son then had the pt's check on him. Wanted to call EMS but pt refused. Was taken to the hospital by car; very off balance and dizzy walking to the car. By the time he got to the ED slurred speech and balance had improved. Per ED note on 08/28/22: Patient presents with slurred speech that began today. Patient states that he was not feeling well at approximately 1:50 PM today. Patient states he laid down at that time. Patient states he accidentally called his son at approximately 3:50 PM today. Patient was slurring his speech at that time. Currently, the patient has no symptoms. Patient states he was having some pain in his chest and took 1 sublingual nitroglycerin. Patient states he felt some tingling under his tongue but denies any headaches after taking it. Patient denies any change in his chest pain at that time. Currently, the patient has no symptoms. Per DC note on 08/29/22: Instructions Additional Instructions / Restrictions: You may have a TIA (aka, a mini-stroke). You will be on aspirin and clopidogrel for 3 weeks, then stop clopidogrel and continue taking aspirin. You will also be on atorvastatin. Follow up with neurology. Discharge Orders/Prescriptions Prescriptions: New clopidogrel 75 mg tablet 75 mg PO DAILY Qty: 21 0RF atorvastatin 40 mg tablet 40 mg PO QHS Qty: 30 0RF Has had two instances in the past where he just doesn't know people. One time his son came in and for 15 min could not recognize his son. States he was sweating as well. He went to his PCP and had an EKG. States he was given an EKG and was told he was having an NE. Mickey was called and he was taken to the ED. States he was told his gall bladder was close to the heart and that's what was causing the readings that showed an NE. Denies associated weakness, vision changes, sensory deficit. States vision has been messed up for quite a while. Possible numbness but unsure. Once in a while tingling in his toes d/t gout. Was not taking ASA at the time of the event. He did take a nitro pill at the time of the event. He is currently taking ASA and Plavix. Wore heart monitor and mailed it back in about one week ago. This was completed through [facility]. States he has borderline high cholesterol and blood glucose. Now on Lipitor 40mg daily. Recently cut out cookies and sugary treats. Has oatmeal for breakfast. Eats one large meal at 3pm. Has been making an effort to lose weight. States he was tested for sleep apnea once. States they called and wanted to test him again. States he is unsure if he stops breathing. Thinks he snores. Not fatigued during the day. States he never slept more than 2-3 hours per night in the past and was never tired. Alcohol: Denies Tobacco: Denies Drug: Denies PAST MEDICAL HISTORY Diagnosis Date Fracture, foot, right, sequela 2017 difficulty with balance since fractured foot in a fall GERD (gastroesophageal reflux disease) controlled with omeprazole Gout Obesity 02/07/2005 PAST SURGICAL HISTORY Procedure Laterality Date IMPLANT MESH OPN HERNIA RPR/DEBRIDEMENT CLOSURE 12/14/04 PAST SURGICAL HISTORY OF foot biopsy REPAIR FIRST ABDOMINAL WALL HERNIA 12/14/04 RPR 1ST INGUN HRNA AGE 5 YRS/> REDUCIBLE Hernia repair, inguinal Current Outpatient Medications on File Prior to Visit Medication Sig clopidogrel (PLAVIX) 75 mg tablet Take 1 tablet by mouth once daily. atorvastatin (LIPITOR) 40 mg tablet Take 1 tablet by mouth once daily. Omeprazole Magnesium (PRILOSEC OTC) 20 mg tablet Take 1 tablet by mouth daily before breakfast. 1/2 hr before meal. allopurinol (ZYLOPRIM) 300 mg tablet Take 1 tablet by mouth once daily. cholecalciferol (VITAMIN D-3) 50 mcg (2,000 unit) tablet Take 2,000 Units by mouth once daily. ascorbic acid (VITAMIN C ORAL) Take by mouth. ibuprofen (MOTRIN) 200 mg tablet Take 3 tablets by mouth three times daily as needed. (some days none, some days 9 pills) Aspirin 81 mg ORAL Tab Take one(1) tablet daily. therapeutic multivitamin ORAL Tab Take one(1) tablet daily. No current facility-administered medications on file prior to visit. Social History Tobacco Use Smoking status: Never Smokeless tobacco: Never Tobacco comments: 40 years ago and only smoked moderatley for 2months Substance Use Topics Alcohol use: No Drug use: No ALLERGIES Allergen Reactions Penicillins Sulfa (Sulfonamide (more content not included)... [facility] 10-05-2022 Instructions Deborah Valdez, ZACK.CAUL FAT PULLER - 10/05/2022 3:31 PM EDT Continue aspirin 81mg and Lipitor 40mg Monitor blood pressure. Goal is less than less than 140/90 Monitor blood glucose. Goal is average blood sugar less than 140 Await results of heart monitor. Please have these faxed to the office after you receive results. If you experience new neurological symptoms or return of symptoms please immediately call 911 and return to the ER. Schedule follow up appointment in 3 months. documented in this encounter [facility] 10-05-2022 History of Presen t illness Narrative Images from the original note were not included. [facility] [place] New Patient Visit New Patient Consultation October 05, 2022 HPI: Mr. Bautista presents today secondary to issues of TIA. He states that on August 28 he was working in the garage when he suddenly became very confused and tired. He went to lie down and his son called and he was making no sense on the phone when talking to his son. His son then had the pt's check on him. Wanted to call EMS but pt refused. Was taken to the hospital by car; very off balance and dizzy walking to the car. By the time he got to the ED slurred speech and balance had improved. Per ED note on 08/28/22: Patient presents with slurred speech that began today. Patient states that he was not feeling well at approximately 1:50 PM today. Patient states he laid down at that time. Patient states he accidentally called his son at approximately 3:50 PM today. Patient was slurring his speech at that time. Currently, the patient has no symptoms. Patient states he was having some pain in his chest and took 1 sublingual nitroglycerin. Patient states he felt some tingling under his tongue but denies any headaches after taking it. Patient denies any change in his chest pain at that time. Currently, the patient has no symptoms. Per DC note on 08/29/22: Instructions Additional Instructions / Restrictions: You may have a TIA (aka, a mini-stroke). You will be on aspirin and clopidogrel for 3 weeks, then stop clopidogrel and continue taking aspirin. You will also be on atorvastatin. Follow up with neurology. Discharge Orders/Prescriptions Prescriptions: New clopidogrel 75 mg tablet 75 mg PO DAILY Qty: 21 0RF atorvastatin 40 mg tablet 40 mg PO QHS Qty: 30 0RF Has had two instances in the past where he just doesn't know people. One time his son came in and for 15 min could not recognize his son. States he was sweating as well. He went to his PCP and had an EKG. States he was given an EKG and was told he was having an NE. Jhoanaad was called and he was taken to the ED. States he was told his gall bladder was close to the heart and that's what was causing the readings that showed an NE. Denies associated weakness, vision changes, sensory deficit. States vision has been messed up for quite a while. Possible numbness but unsure. Once in a while tingling in his toes d/t gout. Was not taking ASA at the time of the event. He did take a nitro pill at the time of the event. He is currently taking ASA and Plavix. Wore heart monitor and mailed it back in about one week ago. This was completed through [facility]. States he has borderline high cholesterol and blood glucose. Now on Lipitor 40mg daily. Recently cut out cookies and sugary treats. Has oatmeal for breakfast. Eats one large meal at 3pm. Has been making an effort to lose weight. States he was tested for sleep apnea once. States they called and wanted to test him again. States he is unsure if he stops breathing. Thinks he snores. Not fatigued during the day. States he never slept more than 2-3 hours per night in the past and was never tired. Alcohol: Denies Tobacco: Denies Drug: Denies PAST MEDICAL HISTORY Diagnosis Date Fracture, foot, right, sequela 2017 difficulty with balance since fractured foot in a fall GERD (gastroesophageal reflux disease) controlled with omeprazole Gout Obesity 02/07/2005 PAST SURGICAL HISTORY Procedure Laterality Date IMPLANT MESH OPN HERNIA RPR/DEBRIDEMENT CLOSURE 12/14/04 PAST SURGICAL HISTORY OF foot biopsy REPAIR FIRST ABDOMINAL WALL HERNIA 12/14/04 RPR 1ST INGUN HRNA AGE 5 YRS/> REDUCIBLE Hernia repair, inguinal Current Outpatient Medications on File Prior to Visit Medication Sig clopidogrel (PLAVIX) 75 mg tablet Take 1 tablet by mouth once daily. atorvastatin (LIPITOR) 40 mg tablet Take 1 tablet by mouth once daily. Omeprazole Magnesium (PRILOSEC OTC) 20 mg tablet Take 1 tablet by mouth daily before breakfast. 1/2 hr before meal. allopurinol (ZYLOPRIM) 300 mg tablet Take 1 tablet by mouth once daily. cholecalciferol (VITAMIN D-3) 50 mcg (2,000 unit) tablet Take 2,000 Units by mouth once daily. ascorbic acid (VITAMIN C ORAL) Take by mouth. ibuprofen (MOTRIN) 200 mg tablet Take 3 tablets by mouth three times daily as needed. (some days none, some days 9 pills) Aspirin 81 mg ORAL Tab Take one(1) tablet daily. therapeutic multivitamin ORAL Tab Take one(1) tablet daily. No current facility-administered medications on file prior to visit. Social History Tobacco Use Smoking status: Never Smokeless tobacco: Never Tobacco comments: 40 years ago and only smoked moderatley for 2months Substance Use Topics Alcohol use: No Drug use: No ALLERGIES Allergen Reactions Penicillins Sulfa (Sulfonamide * Review of Systems: See HPI. Physical Exam: 10/05/22 1435 BP: 144/78 Pulse: 68 Resp: 20 SpO2: 94% Weight: 117.8 kg (259 lb 9.6 oz) Patient is alert and in no distress. Dress is appropriate. Mood is appropriate Breathing appears regular and unstressed Neurologic examination: Cognitively intact. No deficits. No formal MOCA performed. CN: Pupils equal and reactive to light, extraocular movements intact with no nystagmus, face is symmetric with no facial droop, facial sensation intact bilaterally to light touch. V1-3, hearing intact bilaterally, symmetric evaluation of the soft palate, tongue is midline with no deviation, shoulder shrug is symmetric. Motor exam shows 5/5 strength symmetric through the upper and lower extremities in all groups tested. Sensory intact to light touch and temperature in all extremities. Vibratory sensation is intact and symmetric all extremities. Deep tendon reflexes are symmetric at the biceps, brachioradialis, triceps, patella, and achilles bilaterally. Coordination: No dysmetria on finger to nose. No tremors noted. No drift seen. Gait normal in stance and pattern. Negative Romberg. NIHSS: 1(a). Mental Status - LOC 0 = Alert and Attentive 1(b). LOC Questions 0 = Correct age and month 1(c). LOC-Commands 0 = Both 2. Gaze 0 = Normal 3. Visual Brown 0 = Full 4. Facial Weakness 0 = Normal 5(a). Left Arm 0 = No drift 5(b). Right Arm 0 = No drift 6(a). Left Leg 0 = No drift 6(b). Right Leg 0 = No drift 7. Ataxia 0 = Absent 8. Sensory 0 = Normal 9. Aphasia 0 = None 10. Dysarthria 0 = Absent 11. Neglect 0 = None NIHSS Total (0-42): 0 Labs/studies: MRI Brain 08/29/22: Brain without Contrast MR#: [id number] Acct: [id number] Name: JET BAUTISTA Rep #: [id number] : 1945 M 77 From: Barry Ramirez MD PCP: Dr. Uzair Raymundo, DO Status: ADM JEANETH Study: Brain without Contrast Date of Exam: 08/29/22 Exam# [id number] Ordering Dr: Suzi Ballesteros MD EXAM: MR HEAD WITHOUT INTRAVENOUS CONTRAST CLINICAL INDICATION: TIA, slurred speech, confusion TECHNIQUE: Multiplanar and multisequence MR images of the brain were obtained without intravenous contrast. COMPARISON: CT head without contrast 08/28/2022. FINDINGS: BRAIN AND EXTRA-AXIAL SPACES: Multiple T2 FLAIR hyperintensity foci in the white matter of both cerebral hemispheres are chronic white matter ischemic changes. No intra- or extra-axial hemorrhage. No intracranial mass or mass effect. Posterior fossa structures are unremarkable. Ventricles are appropriate for age. No hydrocephalus. Basal cisterns are patent. No diffusion restriction to suspect acute or subacute ischemic infarct. No remote cortical-based ischemic infarct. No old lacunar cystic infarct. SELLA: Unremarkable. Normal sella turcica, pituitary gland, infundibular stalk, optic chiasm and hypothalamus. AUDITORY SYSTEM: Unremarkable. The internal auditory canals are patent. BONES/JOINTS: Unremarkable. No discrete lytic or blastic abnormalities. SINUSES: Small focal mucosal thickening in the medial wall of the right maxillary sinus and in the anterior wall of the right maxillary sinus are unchanged. Minimal mucosal thickening in the sphenoid sinuses. Normal remaining paranasal sinuses. MASTOID AIR CELLS: Unremarkable as visualized. Clear. ORBITS: Unremarkable as visualized. Both globes, extraocular muscles, optic nerves and retrobulbar fat appear unremarkable. VASCULATURE: Unremarkable as visualized. Normal flow voids in the major intracranial circulation. MRI/Brain without Contrast IMPRESSION: 1. No MRI evidence of recent or remote ischemic infarcts or acute intracranial abnormality. 2. Chronic white matter ischemic changes in both cerebral hemispheres. Echo 08/28/22: Interpretation Summary The estimated ejection fraction is 60 %. Left ventricular systolic function is normal. Mild (1+) mitral valve insufficiency. Trivial tricuspid valve insufficiency. Trivial aortic valve insufficiency. Mildly dilated aortic root. Bubble contrast study negative for right to left interatrial shunt CTA Head/neck 08/28/22: FINDINGS: Normal bilateral petrous carotid arteries. Normal right cavernous carotid artery with a normal supraclinoid bifurcation. Normal left cavernous carotid artery with a normal supraclinoid bifurcation. Normal right A1 segments of the anterior cerebral artery. Normal left A1 segments of the anterior cerebral artery. Normal intact anterior communicating artery (ACOM). Normal bilateral A2 segments of the anterior cerebral arteries. Normal right M1 and M2 segments of the middle cerebral arteries, with a normal M1 bifurcation. Normal left M1 and M2 segments of the middle cerebral arteries, with a normal M1 bifurcation. There is non-visualization of the right posterior communicating artery (PCOM). There is non-visualization of the left posterior communicating artery (PCOM). Normal bilateral vertebral arteries. Normal basilar artery with a normal basilar bifurcation. The visualized bilateral superior cerebellar (SCA) arteries are normal. Normal bilateral P1, P2 and visualized P3 segments of the posterior cerebral arteries. There is no demonstrated aneurysm of the [place]. There is no demonstrated abnormality of the visualized brain. AORTIC ARCH: Tortuous origins. Normal visualized aortic arch. Normal origins of the brachiocephalic, left common carotid, and left subclavian arteries. RIGHT CAROTID ARTERIES: Normal right common carotid artery (CCA). Normal right common carotid bulb. Normal origin of the right internal carotid (ICA) artery without a hemodynamically significant stenosis. Normal visualized cervical portion of the right internal carotid artery. Normal origin of the right external carotid artery (ECA). LEFT CAROTID ARTERIES: Normal left common carotid artery (CCA). Normal left common carotid bulb. Normal origin of the left internal carotid (ICA) artery without a hemodynamically significant stenosis. Normal visualized cervical portion of the left internal carotid artery. Normal origin of the left external carotid artery (ECA). VERTEBRAL ARTERIES: Normal bilateral vertebral arteries. Thyroid is enlarged heterogeneous and irregular. IMPRESSION: Enlarged heterogeneous thyroid. Recommend nonemergent thyroid ultrasound. Otherwise Normal CTA Head and neck with contrast. Component Latest Ref Rng & Units 09/11/2022 Protein, Total 6.3 - 8.0 g/dL 6.5 Albumin 3.9 - 4.9 g/dL 4.2 Calcium 8.5 - 10.2 mg/dL 9.5 Bilirubin, Total 0.2 - 1.3 mg/dL 1.3 Alkaline Phosphatase 38 - 113 U/L 86 AST 14 - 40 U/L 18 ALT 10 - 54 U/L 9 (L) Glucose 74 - 99 mg/dL 152 (H) BUN 9 - 24 mg/dL 16 Creatinine 0.73 - 1.22 mg/dL 1.14 Sodium 136 - 144 mmol/L 140 Potassium 3.7 - 5.1 mmol/L 3.9 Chloride 97 - 105 mmol/L 103 CO2 22 - 30 mmol/L 26 Anion Gap 9 - 18 mmol/L 11 eGFR >=60 mL/min/1.73m 67 WBC 3.70 - 11.00 k/uL 9.89 RBC 4.20 - 6.00 m/uL 5.11 Hemoglobin 13.0 - 17.0 g/dL 14.9 Hematocrit 39.0 - 51.0 % 44.8 MCV 80.0 - 100.0 fL 87.7 MCH 26.0 - 34.0 pg 29.2 MCHC 30.5 - 36.0 g/dL 33.3 RDW-CV 11.5 - 15.0 % 13.9 Platelet Count 150 - 400 k/uL 247 MPV 9.0 - 12.7 fL 10.4 Absolute nRBC <0.01 k/uL <0.01 Cholesterol, Total <200 mg/dL 123 Triglyceride <150 mg/dL 155 (H) HDL Cholesterol >39 mg/dL 33 (L) Non HDL Cholesterol <130 mg/dL 90 Fasting Time hrs 12 VLDL Cholesterol <30 mg/dL 31 (H) TC:HDL Ratio <5.10 3.73 LDL Cholesterol <100 mg/dL 59 LDL:HDL Ratio <2.54 1.79 Component Latest Ref Rng & Units 07/05/2018 Hemoglobin A1C 4.3 - 5.6 % 6.0 (H) Estimated Average Glucose mg/dL 126 Assessment/Plan: G45.9 TIA (transient ischemic attack) Comment: Pt with pmh GERD, sciatica, neuropathy, prediabetes presenting today for follow-up after TIA. Patient reports that on 08/28/2022 he experienced slurred speech. He was taken to the ED where testing was completed including CTA, MRI, and echocardiogram. Imaging was unremarkable. Additionally, lipid panel noting LDL of 59. A1c previously ordered but not yet completed. monitor technician was ordered following DC and he reports he is currently awaiting results. He was discharged on DAPT and after 3 weeks was instructed to continue ASA monotherapy. He was also prescribed atorvastatin. Today he reports resolution of all symptoms and no further recurrence. Recommend continuing ASA 81mg and Lipitor 40mg for stroke prevention. Goals at this time include BP <140/90 and BG <140. Recommend adequate physical activity within patient limitations. Follow-up regularly with PCP for management of risk factors including HTN, HLD, DM. Reviewed red flag sx and when to call 911 and present to ED. Note, I have asked him to send the results of his secured entrance monitor to the office after they are obtained for further review. Follow up in three months or sooner should new or worsening symptoms occur. Deborah Valdez APRN.CAUL FAT PULLER I spent a total of 55 minutes on the date of the service which included preparing to see the patient, [id number] patient care, completing clinical documentation, obtaining and/or reviewing separately obtained history, performing a medically appropriate examination, and counseling and educating the patient/family/caregiver. Portions of this note were created with electronic dictation and errors in spelling, syntax, and meaning may have occurred. documented in this encounter [facility] 10-02-2022 Miscellaneous Notes Patient has been identified by name and date of : Yes Last office visit in this department: 09/01/2022 RX INSTRUCTIONS: Patient aware RX will be sent to pharmacy. No need to notify patient. Patient phones requesting refills as follows: Requested Prescriptions Pending Prescriptions Disp Refills Omeprazole Magnesium (PRILOSEC OTC) 20 mg tablet Sig: Take 1 tablet by mouth daily before breakfast. 1/2 hr before meal. Please review and advise. Candida Hernandez documented in this encounter [facility] 09-01-2022 Note HNO ID: [id number] Author: Denise Garrett MD Service: ? Author Type: Physician Type: Progress Notes Filed: 10/02/2022 12:36 AM Note Text: This note was created using [employer]. Subjective Jet Bautista is a 77 year old male. Patient presents with: Hospital F/U SUBJECTIVE: Jet Bautista is a 77 year old year old gentleman here today for hospital follow up appointment for review of medical conditions. Had TIA with poor balance and speech. Got really tired ad confused, then lightheaded while was in the garage. Went in home and laid down. Somehow called son accidentally. Speech was garbled. Could not walk well at first. Did improved by time got into ER. BP was high in hospital. Was started on Clopidogrel and Atorvastatin Was told that they are sending him an event monitor through the mail Noted rash on arms. Getting treated through Dr. Killian Abbott. Noted ongoing rash on arms and legs. Legs is new rash but resolving already. OTC hydrocortisone helping after stopped using after a week. Has cream from Dr. Abbott. PAST MEDICAL HISTORY Diagnosis Date Fracture, foot, right, sequela 2017 difficulty with balance since fractured foot in a fall GERD (gastroesophageal reflux disease) controlled with omeprazole Gout Obesity 02/07/2005 Current Outpatient Medications Medication Sig clopidogrel (PLAVIX) 75 mg tablet Take 1 tablet by mouth once daily. atorvastatin (LIPITOR) 40 mg tablet Take 1 tablet by mouth once daily. cholecalciferol (VITAMIN D-3) 50 mcg (2,000 unit) tablet Take 2,000 Units by mouth once daily. ascorbic acid (VITAMIN C ORAL) Take by mouth. omeprazole (PRILOSEC) 20 mg capsule Take 1 capsule by mouth daily before breakfast. 1/2 hr before meal. allopurinol (ZYLOPRIM) 300 mg tablet Take 1 tablet by mouth once daily. ibuprofen (MOTRIN) 200 mg tablet Take 3 tablets by mouth three times daily as needed. (some days none, some days 9 pills) Aspirin 81 mg ORAL Tab Take one(1) tablet daily. therapeutic multivitamin ORAL Tab Take one(1) tablet daily. ZINC ORAL Take by mouth. (Patient not taking: Reported on 07/22/2022) No current facility-administered medications for this visit. Review of Systems Objective BP 112/62 Pulse 76 Temp 37 ?C (98.6 ?F) Resp 18 Wt 117.9 kg (260 lb) SpO2 96% BMI 37.31 kg/m? Physical Exam Vitals reviewed. Constitutional: Appearance: Normal appearance. Eyes: Conjunctiva/sclera: Conjunctivae normal. Cardiovascular: Rate and Rhythm: Normal rate and regular rhythm. Heart sounds: Normal heart sounds. Pulmonary: Effort: Pulmonary effort is normal. Breath sounds: Normal breath sounds. Skin: General: Skin is warm and dry. Neurological: General: No focal deficit present. Mental Status: He is alert and oriented to person, place, and time. Psychiatric: Attention and Perception: Attention and perception normal. Mood and Affect: Mood and affect normal. Speech: Speech normal. Behavior: Behavior normal. Thought Content: Thought content normal. Judgment: Judgment normal. Assessment and Plan Encounter Diagnosis ICD-10-CM 1. TIA (transient ischemic attack) G45.9 LIPID PANEL BASIC CONSULT TO NEUROLOGY 2. Gastroesophageal reflux disease without esophagitis K21.9 Omeprazole Magnesium (PRILOSEC OTC) 20 mg tablet 3. Hyperuricemia E79.0 allopurinol (ZYLOPRIM) 300 mg tablet 4. Encounter for long-term current use of medication Z79.899 COMP METABOLIC PANEL CBC 5. Rash R21 Dr. Abbott treating; rash resolving Above issues addressed with patient. Patient involved in shared decision making for management of medical issues. History and medications reviewed. Epic updated as needed Refills and/or prescriptions taken care of and meds adjusted as indicated after reviewed history, exam and labs. Health Maintenance reviewed. Updated record and/or ordered tests as recorded. Encouraged on efforts at healthy diet and regular exercise and adequate sleep. Denise Garrett MD [facility] 09-01-2022 History of Presen t illness Narrative This note was created using [employer]. Subjective Jet Bautista is a 77 year old male. Patient presents with: Hospital F/U SUBJECTIVE: Jet Bautista is a 77 year old year old gentleman here today for hospital follow up appointment for review of medical conditions. Had TIA with poor balance and speech. Got really tired ad confused, then lightheaded while was in the garage. Went in home and laid down. Somehow called son accidentally. Speech was garbled. Could not walk well at first. Did improved by time got into ER. BP was high in hospital. Was started on Clopidogrel and Atorvastatin Was told that they are sending him an event monitor through the mail Noted rash on arms. Getting treated through Dr. Klilian Abbott. Noted ongoing rash on arms and legs. Legs is new rash but resolving already. OTC hydrocortisone helping after stopped using after a week. Has cream from Dr. Abbott. PAST MEDICAL HISTORY Diagnosis Date Fracture, foot, right, sequela 2017 difficulty with balance since fractured foot in a fall GERD (gastroesophageal reflux disease) controlled with omeprazole Gout Obesity 02/07/2005 Current Outpatient Medications Medication Sig clopidogrel (PLAVIX) 75 mg tablet Take 1 tablet by mouth once daily. atorvastatin (LIPITOR) 40 mg tablet Take 1 tablet by mouth once daily. cholecalciferol (VITAMIN D-3) 50 mcg (2,000 unit) tablet Take 2,000 Units by mouth once daily. ascorbic acid (VITAMIN C ORAL) Take by mouth. omeprazole (PRILOSEC) 20 mg capsule Take 1 capsule by mouth daily before breakfast. 1/2 hr before meal. allopurinol (ZYLOPRIM) 300 mg tablet Take 1 tablet by mouth once daily. ibuprofen (MOTRIN) 200 mg tablet Take 3 tablets by mouth three times daily as needed. (some days none, some days 9 pills) Aspirin 81 mg ORAL Tab Take one(1) tablet daily. therapeutic multivitamin ORAL Tab Take one(1) tablet daily. ZINC ORAL Take by mouth. (Patient not taking: Reported on 07/22/2022) No current facility-administered medications for this visit. Review of Systems Objective BP 112/62 Pulse 76 Temp 37 C (98.6 F) Resp 18 Wt 117.9 kg (260 lb) SpO2 96% BMI 37.31 kg/m Physical Exam Vitals reviewed. Constitutional: Appearance: Normal appearance. Eyes: Conjunctiva/sclera: Conjunctivae normal. Cardiovascular: Rate and Rhythm: Normal rate and regular rhythm. Heart sounds: Normal heart sounds. Pulmonary: Effort: Pulmonary effort is normal. Breath sounds: Normal breath sounds. Skin: General: Skin is warm and dry. Neurological: General: No focal deficit present. Mental Status: He is alert and oriented to person, place, and time. Psychiatric: Attention and Perception: Attention and perception normal. Mood and Affect: Mood and affect normal. Speech: Speech normal. Behavior: Behavior normal. Thought Content: Thought content normal. Judgment: Judgment normal. Assessment and Plan Encounter Diagnosis ICD-10-CM 1. TIA (transient ischemic attack) G45.9 LIPID PANEL BASIC CONSULT TO NEUROLOGY 2. Gastroesophageal reflux disease without esophagitis K21.9 Omeprazole Magnesium (PRILOSEC OTC) 20 mg tablet 3. Hyperuricemia E79.0 allopurinol (ZYLOPRIM) 300 mg tablet 4. Encounter for long-term current use of medication Z79.899 COMP METABOLIC PANEL CBC 5. Rash R21 Dr. Abbott treating; rash resolving Above issues addressed with patient. Patient involved in shared decision making for management of medical issues. History and medications reviewed. Epic updated as needed Refills and/or prescriptions taken care of and meds adjusted as indicated after reviewed history, exam and labs. Health Maintenance reviewed. Updated record and/or ordered tests as recorded. Encouraged on efforts at healthy diet and regular exercise and adequate sleep. Denise Garrett MD documented in this encounter [facility] 08-29-2022 Miscellaneous Notes Looks like may have gone to [facility]. Check for admission/discharge. Schedule follow up when appropriate Patient's calling to report patient had sudden onset of slurred speech and disorientation some time after noon today. Symptoms are still present but decreased after patient took one NTG tablet at time symptoms started. She said he took NTG because he generally did not feel well with nausea and dizziness as well as neurologic symptoms. Disposition: Call 911. Josselin León RN Reason for Disposition [1] Loss of speech or garbled speech AND [2] sudden onset AND [3] present now Answer Assessment - Initial Assessment Questions 1. SYMPTOM: Acute onset slurred speech and mental confusion about 2 hours ago 2. ONSET: 2-3 hours ago 3. LAST NORMAL: states some time after noon 4. PATTERN: constant but improving slightly. Patient took NTG tablet When symptoms started because he was generally not feeling well 5. CARDIAC SYMPTOMS: nausea, dizziness 6. NEUROLOGIC SYMPTOMS: changes in speech, disoriented 7. OTHER SYMPTOMS: No numbness or weakness on one side of body 8. :NO Protocols used: Neurologic [id number] documented in this encounter [facility] 08-29-2022 Note HNO ID: [id number] Author: Jing Johansen PT Service: ? Author Type: Physical Therapist Type: Progress Notes Filed: 08/29/2022 8:25 AM Note Text: 08/29/2022 [facility] PHYSICAL THERAPY DISCONTINUANCE OF CARE Plan of Care Period: Start of Care Date: 07/31/22 Last Visit Date: 08/14/2022 Therapy Program: The following is a summary of the interventions provided for this episode of care; Therapeutic exercise and Patient/Family/Caregiver Education Assessment: Based on most recent visit, patient was progressing faster than expected toward functional goals based on home exercise program compliance, pain levels, documented subjective information on progress, and appointment compliance. Unable to formally assess goal achievement, as patient has not returned to therapy or scheduled additional follow-up appointments. Reason for Discontinuation of Care: Patient has not returned to therapy or scheduled additional follow-up appointments. Jing Johansen PT [facility] 08-25-2022 Miscellaneous Notes Called patient to get more visits scheduled. He said that he is doing great and have not felt like this in years. So he did not want to come back to therapy as what we have him doing is really working for him. documented in this encounter [facility] 08-14-2022 Note HNO ID: [id number] Author: Blossom Hadrwick PTA Service: ? Author Type: Bindery Machine Operator Type: Progress Notes Filed: 08/14/2022 11:23 AM Note Text: Episode Visit Count: 3 Therapist That Will Accept/Oversee The Plan Of Care: Jing Johansen PT Start of Care Date: 07/31/22 Onset Date: 05/11/23 (Symptoms worsened over ) Plan of Care Certification Date: 07/31/22 Next Certification Due Date: 09/22/22 [facility]AP[facility] PHYSICAL THERAPY TREATMENT NOTE ASSESSMENT: Jet Bautista tolerated the session with no issues. He demonstrated improvements in progression with increased reps for some of the ex and addition of mid and low row with band. He remained painfree and reports that he has been painfree for the past several days The patient will continue to benefit from ongoing skilled physical therapy to progress toward set goals. PLAN FOR NEXT VISIT: Continue to progress as tolerated SUBJECTIVE: Patient Reason for Visit: Pt reports that he is doing very well. He has been painfree for the past several days. He was out of town over the weekend and was on his feet quite a bit. He had no pain but he reports that his back and legs felt fatigued. Pain: Pain Pain Level: 0 Pain Location: Hip - Right Post Treatment Pain Post Treatment Pain Level: No Change OBJECTIVE MEASURES WITH LEVEL OF FUNCTION: TREATMENT: Therapeutic Exercise: 1: SKTC bilat 5 x w/10 sec hold 2: DKTC x 5 w/10 sec hold 3: Posterior pelvic tilt 3 x 10 4: PPT with hip add sets 3 x 10 5: PPT with resisted hip abd and green band 3 x 10 6: Resisted alternating LE marches with green band 3 x 10 each LE 7: Supine hamstrings flexibility with strap x 3, hold 15 seconds each LE 8: Slr's bilat 2 x 10 each 9: Standing hip abduction bilat 2 x 10 each 10: *Mid and low rows with green band 2 x 10 Skilled Intervention: Patient was educated in proper exercise technique and purpose for exercises. Skilled judgment was provided in selection of appropriate interventions. Provided written instruction for home exercise program to facilitate proper performance and compliance. Correct performance of therapeutic exercises was facilitated with verbal and visual cuing. Home Exercise Program Assigned: 1: *Mid and low rows with green band 2 x 10 Billing Therapeutic Exercise Treatment Minutes: 45 Total Treatment Time Minutes (timed/untimed): [address]TA [facility] 08-07-2022 Note HNO ID: [id number] Author: Blossom Hardwick PTA Service: ? Author Type: Bindery Machine Operator Type: Progress Notes Filed: 08/07/2022 3:22 PM Note Text: Episode Visit Count: 2 Therapist That Will Accept/Oversee The Plan Of Care: Jing Johansen PT Start of Care Date: 07/31/22 Onset Date: 06/29/22 (Symptoms worsened over ) Plan of Care Certification Date: 07/31/22 Next Certification Due Date: 09/22/22 REHABIL[facility]ATION AND SPORTS THERAPY PHYSICAL THERAPY TREATMENT NOTE ASSESSMENT: Jet Bautista tolerated the session with decreased symptoms. He demonstrated difficulty with some of the ex's requiring occasional cues. He demonstrated improvement with tolerance for increased reps for several of the ex's and he tolerated progression of lumbar stabs/core/le strengthening. He reported he felt better at the end of the session. The patient will continue to benefit from ongoing skilled physical therapy to progress toward set goals. PLAN FOR NEXT VISIT: Progress with flexion biased Lstabs program SUBJECTIVE: Patient Reason for Visit: Pt reports that he is very pleased with his progress. He gets down on the floor to do his ex's and he already notes improved strength and mobility getting up off of the floor. He also notes that his pain is mostly in his R hip today. No pain in his ls region or down the leg. Pain: Pain Pain Level: 1 Pain Location: Hip - Right Description: Other: See comment ( pulling ) Frequency: Intermittent, With movement, Walking Post Treatment Pain Post Treatment Pain Level: Better OBJECTIVE MEASURES WITH LEVEL OF FUNCTION: TREATMENT: Therapeutic Exercise: 1: SKTC bilat w/10 sec hold 2: DKTC x 5 w/10 sec hold 3: Posterior pelvic tilt 2 x 10 (increased reps) 4: PPT with hip add sets 2 x 10 (increased reps) 5: PPT with resisted hip abd and green band 2 x 10 (Increased reps) 6: Resisted alternating LE marches with green band 2 x 10 each LE (increased reps) 7: Supine hamstrings flexibility with strap x 3, hold 15 seconds each LE 8: *Slr's bilat 2 x 10 each 9: *Standing hip abduction bilat 2 x 10 each Skilled Intervention: Patient was educated in proper exercise technique and purpose for exercises. Reviewed and educated patient on additions/changes for home exercise program as above (*). Skilled judgment was provided in selection of appropriate interventions. Provided written instruction for home exercise program to facilitate proper performance and compliance. Correct performance of therapeutic exercises was facilitated with verbal and visual cuing. Home Exercise Program Assigned: 1: *Slr's bilat 2 x 10 each 2: *Standing hip abduction bilat 2 x 10 each Billing Therapeutic Exercise Treatment Minutes: 50 Total Treatment Time Minutes (timed/untimed): 50 Blossom [address]JU[address]IO [facility] 08-07-2022 History of Presen t illness Narrative Episode Visit Count: 2 Therapist That Will Accept/Oversee The Plan Of Care: Jing Johansen PT Start of Care Date: 07/31/22 Onset Date: 06/29/22 (Symptoms worsened over ) Plan of Care Certification Date: 07/31/22 Next Certification Due Date: 09/22/22 REHABILITATION AND SPORTS THERAPY PHYSICAL THERAPY TREATMENT NOTE ASSESSMENT: Jet Bautista tolerated the session with decreased symptoms. He demonstrated difficulty with some of the ex's requiring occasional cues. He demonstrated improvement with tolerance for increased reps for several of the ex's and he tolerated progression of lumbar stabs/core/le strengthening. He reported he felt better at the end of the session. The patient will continue to benefit from ongoing skilled physical therapy to progress toward set goals. PLAN FOR NEXT VISIT: Progress with flexion biased Lstabs program SUBJECTIVE: Patient Reason for Visit: Pt reports that he is very pleased with his progress. He gets down on the floor to do his ex's and he already notes improved strength and mobility getting up off of the floor. He also notes that his pain is mostly in his R hip today. No pain in his ls region or down the leg. Pain: Pain Pain Level: 1 Pain Location: Hip - Right Description: Other: See comment ( pulling ) Frequency: Intermittent, With movement, Walking Post Treatment Pain Post Treatment Pain Level: Better OBJECTIVE MEASURES WITH LEVEL OF FUNCTION: TREATMENT: Therapeutic Exercise: 1: SKTC bilat w/10 sec hold 2: DKTC x 5 w/10 sec hold 3: Posterior pelvic tilt 2 x 10 (increased reps) 4: PPT with hip add sets 2 x 10 (increased reps) 5: PPT with resisted hip abd and green band 2 x 10 (Increased reps) 6: Resisted alternating LE marches with green band 2 x 10 each LE (increased reps) 7: Supine hamstrings flexibility with strap x 3, hold 15 seconds each LE 8: *Slr's bilat 2 x 10 each 9: *Standing hip abduction bilat 2 x 10 each Skilled Intervention: Patient was educated in proper exercise technique and purpose for exercises. Reviewed and educated patient on additions/changes for home exercise program as above (*). Skilled judgment was provided in selection of appropriate interventions. Provided written instruction for home exercise program to facilitate proper performance and compliance. Correct performance of therapeutic exercises was facilitated with verbal and visual cuing. Home Exercise Program Assigned: 1: *Slr's bilat 2 x 10 each 2: *Standing hip abduction bilat 2 x 10 each Billing Therapeutic Exercise Treatment Minutes: 50 Total Treatment Time Minutes (timed/untimed): 50 Blossom Hardwick PTA documented in this encounter [facility] documented as of this encounter (statuses as of 08/31/2022) [facility]06-12-2023 History of Past illness Narrative* Problem Noted Date Diagnosed Date Resolved Date Lumbar radiculopathy 07/31/2022 023 Weakness of trunk musculature 07/31/2022 08/29/2022 Pain of right lower extremity 07/31/2022 08/29/2022 documented as of this encounter (statuses as of 10/02/2022) [facility] History of Past illness Narrative* Problem Noted Date Diagnosed Date Resolved Date Lumbar radiculopathy 07/31/2022 023 Weakness of trunk musculature 07/31/2022 08/29/2022 Pain of right lower extremity 07/31/2022 08/29/2022 documented as of this encounter (statuses as of 10/03/2022) [facility]06-12-2023 History of Past illness Narrative* Problem Noted Date Diagnosed Date Resolved Date Lumbar radiculopathy 07/31/2022 023 Weakness of trunk musculature 07/31/2022 08/29/2022 Pain of right lower extremity 07/31/2022 08/29/2022 documented as of this encounter (statuses as of 10/09/2022) [facility]06-12-2023 History of Past illness Narrative* Problem Noted Date Diagnosed Date Resolved Date Lumbar radiculopathy 07/31/2022 023 Weakness of trunk musculature 07/31/2022 08/29/2022 Pain of right lower extremity 07/31/2022 08/29/2022 documented as of this encounter (statuses as of 01/09/2023) [facility]06-12-2023 NoteHNO ID: [id number] Author: Jing Johansen PT Service: ? Author Type: Physical Therapist Type: Progress Notes Filed: 07/31/2022 2:03 PM Note Text: Episode Visit Count: 1 Therapist That Will Accept/Oversee The Plan Of Care: Jing Johansen PT Start of Care Date: 07/31/22 Onset Date: 06/29/22 (Symptoms worsened over weekend) Plan of Care Certification Date: 07/31/22 Next Certification Due Date: 09/22/22 Patient Identified by Name and Date of : Yes [facility] PHYSICAL THERAPY EVALUATION PLAN OF CARE: Assessment: Jet Bautista presents with chief complaint of lumbar radiculopathy that has been ongoing for several weeks duration that interferes with rising from a chair, sitting, walking, bed mobility . He presents with impairments in gait, independence in exercise, overall function, symptom management, and tissue tenderness. Patient did not complete the PROMIS? (Patient Reported Outcome Measures Information System). Prognosis for therapy is Good due to: current objective clinical presentation, good overall health status, positive past response to therapy, good support system/ coping skills . He will benefit from skilled therapy services to meet the goals established for this plan of care as noted below. Goals for Episode of Care: created on 07/31/22 through 09/22/22 Patient to demonstrate independence in home exercise program for flexion biased Lstabs and LB/LE stretching to reduce R LE radiculopathy. Patient will decrease R sided lumbar and iliac crest level pain to no greater than 0-4/10 with functional activities to allow patient to improve ambulation and transfers. Patient will increase active ROM of lumbar spine to minimal to moderate limitation overall to allow pt to to improve performance of ADLs. Patient will demonstrate increase in trunk, abdominal, and bilateral LE strengths to 4-4+/5 to 4+/5 during manual muscle testing in order to improve function for home management tasks, leisure / recreation skills, and prior functional tasks. Patient will increase flexibility of hamstrings to 75-80 degrees to improve ability to maintain proper posture and decrease pain. Patient Goals: To get my symptoms to where I can manage them at home. Planned Interventions, Frequency, and Duration: Current Frequency: 1x/week Duration: 6 weeks Total Number of Visits Planned: 6 Planned Treatment Interventions: Therapeutic exercise (45634), Neuromuscular re-education (17887), Patient/Family/Caregiver Education PLAN FOR NEXT VISIT: Review HEP and progress with flexion biased Lstabs program Patient demonstrates good understanding of plan of care and treatment. The above goals and plan of care were discussed and agreed upon by patient/family. SUBJECTIVE: Jet Bautista is a 77 year old male seen today for onset of lumbar radiculopathy symptoms into the R LE on 06/29/2022. He saw Dr. 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 He was given steroids and Flexeril. He then went to immediate care that same week and saw Navneet Godinez APRN, [employer], who gave him a Prednisone taper and lidocaine patches. He states that he was out of town for a rally last week. He will now be seen with Dr. Denise Garrett for his PCP. He notes that he had these symptoms before and has been doing abdominal sets, and single and double knee to chest stretches at least 3x/day. He reports that if he walks bent over for a few minutes that his symptoms will resolve. He has the most problems with sitting and then trying to get up again. His symptoms have resolved, but he continues to have the R gluteal and R lateral hip pain that is dull in nature. He is having more discomfort at night or when he gets very tired.Patient Goals: To get my symptoms to where I can manage them at home. He does have a follow up with his PCP in 6 weeks and can call her if needed per patient. 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 Intake Information: Prescription present Previous Treatment: Steroids , Topicals, Muscle relaxer , NSAIDs , Physical Therapy Pain: Pain Pain Level: 2 Pain Location: Low Back/Lumbar Spine - Right, Buttocks - Right, Hip - Right Description: Aching, Dull Frequency: Intermittent, With movement, Walking Post Treatment Pain Post Treatment Pain Level: No Change OBJECTIVE MEASURES WITH LEVEL OF FUNCTION: Posture / Alignment Posture: Forward head, Increased lumbar lordosis, Rounded shoulders Spine Observations R Lumbar Spine Palpati (more content not included)...[facility] 07-22-2022 NoteHNO ID: [id number] Author: Denise Garrett MD Service: ? Author Type: Physician Type: Progress Notes Filed: 08/21/2022 12:44 AM Note Text: This note was created using [employer]. Subjective Jet Bautista is a 77 year old male. HISTORY Jet Bautista is a 77 year old gentleman here for exam and appointment to re-establish. Reviewed reason went to see Dr. Harrison when could nto get an appointment with me. Seen in [facility] 07/21/22 for the severe pain that was not addressed by other practice (no one called him back). Noted that pain gets worse after sitting and working on computer. Pain better with exercises (really helped this AM when did the exercises) plus the prednisone taper started yesterday plus lidocaine patches. Pain is right buttocks and in calf this time. Before was upper posterior thigh and across lower back. Pain can be bad with weight bearing with flare ups. States that was referred for PT. 3 to 4 years ago fell 20 feet. hit wall and bounced of that and hit concrete. Had rib fractures. Right foot with fractures nondisplaced.so was NWB to get it to heal without casting. Was using crutches though and caused problems with ribs. Reviewed work up for episode of chest tightness and PRIETO and left arm numbness. Ended up at [facility] for stress test and was fine. (12/2013). Had another evaluation at [facility] when had episode of sweating and chest tightness and was seen byt Dr. Harrison and had ECG changes that were concerning. Ruled out for cardiac cause and was told probably gallbladder issue. Still with PRIETO. Also pain with walking. Requested RX for parking placard. Has Apple watch with fall alert. Has not had COVID infection that was diagnosed. Dose have HCDPOA and LW. Surrogate decision makers are Kathleen Abbott and Rashard Bautista (children) Depression Screening 02/07/2016 08/16/2016 12/25/2017 07/22/2022 PHQ-2 Score 0 0 0 0 Depression screening tool completed and reviewed. Based on score and interview, patient is not at risk for depression. Screening tool discussed with patient, and I recommended no further intervention at this time. PAST MEDICAL HISTORY Diagnosis Date Fracture, foot, right, sequela 2017 difficulty with balance since fractured foot in a fall GERD (gastroesophageal reflux disease) controlled with omeprazole Gout Obesity 02/07/2005 Current Outpatient Medications Medication Sig cholecalciferol (VITAMIN D-3) 50 mcg (2,000 unit) tablet Take 2,000 Units by mouth once daily. ascorbic acid (VITAMIN C ORAL) Take by mouth. predniSONE (DELTASONE) 10 mg tablet Take 6 tabs for 3 days, then 4 tabs for 3 days, then 2 tabs for 3 days then 1 tab for 3 days with food. lidocaine (SALONPAS) 4 % patch Apply 1 Patch as directed once daily for 5 days. Remove patch after 12 hours omeprazole (PRILOSEC) 20 mg capsule Take 1 capsule by mouth daily before breakfast. 1/2 hr before meal. allopurinol (ZYLOPRIM) 300 mg tablet Take 1 tablet by mouth once daily. ibuprofen (MOTRIN) 200 mg tablet Take 3 tablets by mouth three times daily as needed. (some days none, some days 9 pills) Aspirin 81 mg ORAL Tab Take one(1) tablet daily. therapeutic multivitamin ORAL Tab Take one(1) tablet daily. ZINC ORAL Take by mouth. (Patient not taking: Reported on 07/22/2022) No current facility-administered medications for this visit. ALLERGIES Allergen Reactions Penicillins Sulfa (Sulfonamide * FAMILY HISTORY Problem Relation Age of Onset Heart Mother angina Stroke Father COPD Brother Heart Maternal Grandmother angina Social History Tobacco Use Smoking status: Never Smokeless tobacco: Never Tobacco comments: 40 years ago and only smoked moderatley for 2months Substance Use Topics Alcohol use: No Drug use: No Review of Systems Objective BP 134/76 (BP Site: Left Arm, BP Position: Sitting, BP Cuff Size: Large Adult) Pulse 72 Resp 16 Wt 116.6 kg (257 lb) BMI 36.88 kg/m? Physical Exam Vitals reviewed. Constitutional: Appearance: Normal appearance. Eyes: Conjunctiva/sclera: Conjunctivae normal. Cardiovascular: Rate and Rhythm: Normal rate and regular rhythm. Heart sounds: Normal heart sounds. Pulmonary: Effort: Pulmonary effort is normal. Breath sounds: Normal breath sounds. Musculoskeletal: Right lower leg: No edema. Left lower leg: No edema. Comments: No tenderness in SI joint or buttocks where gets the pain on right side. Skin: General: Skin is warm and dry. Neurological: General: No focal deficit present. Mental Status: He is alert and oriented to person, place, and time. Psychiatric: Mood and Affect: Mood normal. Behavior: Behavior normal. Thought Content: Thought content normal. Judgment: Judgment normal. Labs done April 2022 at [facility] HgA1C 6.1 Assessment and Plan Encounter Diagnosis ICD-10-CM 1. Acute midline low back pain with right-sided sciatica M54 (more content not included)...[facility]06-03-2023 History of Present illness Narrative* Denise Garrett MD - 07/22/2022 12:07 PM EDT This note was created using [employer]. Subjective Jet Bautista is a 77 year old male. HISTORY Jet Bautista is a 77 year old gentleman here for exam and appointment to re-establish. Reviewed reason went to see Dr. Harrison when could nto get an appointment with me. Seen in [facility] 07/21/22 for the severe pain that was not addressed by other practice (no one called him back). Noted that pain gets worse after sitting and working on computer. Pain better with exercises (really helped this AM when did the exercises) plus the prednisone taperstarted yesterday plus lidocaine patches. Pain is right buttocks and in calf this time. Before was upper posterior thigh and across lower back. Pain can be bad with weight bearing with flare ups. States that was referred for PT. 3 to 4 years ago fell 20 feet. hit wall and bounced of that and hit concrete. Had rib fractures. Right foot with fractures nondisplaced.so was NWB to get it to heal without casting. Was using crutches though and caused problems with ribs. Reviewed work up for episode of chest tightness and PRIETO and left arm numbness. Ended up at [facility] for stress test and was fine. (12/2013). Had another evaluation at [facility] when had episode of sweating and chest tightness and was seen byt Dr. Harrison and had ECG changes that wereconcerning. Ruled out for cardiac cause and was told probably gallbladder issue. Still with PRIETO. Also pain with walking. Requested RX for parking placard. Has Apple watch with fall alert. Has not had COVID infection that was diagnosed. Dose have HCDPOA and LW. Surrogate decision makers are Kathleen Abbott and Rashard Bautista (children) Depression Screening 02/07/2016 08/16/2016 12/25/2017 07/22/2022 PHQ-2 Score 0 0 0 0 Depression screening tool completed and reviewed. Based on score and interview, patient is not at risk for depression. Screening tool discussed with patient, and I recommended no further interventionat this time. PAST MEDICAL HISTORY Diagnosis Date Fracture, foot, right, sequela 2017 difficulty with balance since fractured foot in a fall GERD (gastroesophageal reflux disease) controlled with omeprazole Gout Obesity 02/07/2005 Current Outpatient Medications Medication Sig cholecalciferol (VITAMIN D-3) 50 mcg (2,000 unit) tablet Take 2,000 Units by mouth once daily. ascorbic acid (VITAMIN C ORAL) Take by mouth. predniSONE (DELTASONE) 10 mg tablet Take 6 tabs for 3 days, then 4 tabs for 3 days, then 2 tabs for3 days then 1 tab for 3 days with food. lidocaine (SALONPAS) 4 % patch Apply 1 Patch as directed once daily for 5 days. Remove patch after 12 hours omeprazole (PRILOSEC) 20 mg capsule Take 1 capsule by mouth daily before breakfast. 1/2 hr before meal. allopurinol (ZYLOPRIM) 300 mg tablet Take 1 tablet by mouth once daily. ibuprofen (MOTRIN) 200 mg tablet Take 3 tablets by mouth three times daily as needed. (some days none, some days 9 pills) Aspirin 81 mg ORAL Tab Take one(1) tablet daily. therapeutic multivitamin ORAL Tab Take one(1) tablet daily. ZINC ORAL Take by mouth. (Patient not taking: Reported on 07/22/2022) No current facility-administered medications for this visit. ALLERGIES Allergen Reactions Penicillins Sulfa (Sulfonamide * FAMILY HISTORY Problem Relation Age of Onset Heart Mother angina Stroke Father COPD Brother Heart Maternal Grandmother angina Social History Tobacco Use Smoking status: Never Smokeless tobacco: Never Tobacco comments: 40 years ago and only smoked moderatley for 2months Substance Use Topics Alcohol use: No Drug use: No Review of Systems Objective BP 134/76 (BP Site: Left Arm, BP Position: Sitting, BP Cuff Size: Large Adult) Pulse 72 Resp 16 Wt 116.6 kg (257 lb) BMI 36.88 kg/m Physical Exam Vitals reviewed. Constitutional: Appearance: Normal appearance. Eyes: Conjunctiva/sclera: Conjunctivae normal. Cardiovascular: Rate and Rhythm: Normal rate and regular rhythm. Heart sounds: Normal heart sounds. Pulmonary: Effort: Pulmonary effort is normal. Breath sounds: Normal breath sounds. Musculoskeletal: Right lower leg: No edema. Left lower leg: No edema. Comments: No tenderness in SI joint or buttocks where gets the pain on right side. Skin: General: Skin is warm and dry. Neurological: General: No focal deficit present. Mental Status: He is alert and oriented to person, place, and time. Psychiatric: Mood and Affect: Mood normal. Behavior: Behavior normal. Thought Content: Thought content normal. Judgment: Judgment normal. Labs done April 2022 at [facility] HgA1C 6.1 Assessment and Plan Encounter Diagnosis ICD-10-CM 1. Acute midline low back pain with right-sided sciatica M54.41 Much better 2. Class 2 obesity due to excess calories without serious comorbidity with body mass index (BMI) of36.0 to 36.9 in adult E66.09 Z68.36 3. IFG (impaired fasting glucose) R73.01 HGB A1C COMP METABOLIC PANEL 4. Low HDL (under 40) E78.6 LIPID PANEL BASIC 5. Encounter for long-term current use of medication Z79.899 COMP METABOLIC PANEL CBC MAGNESIUM BLD Above issues addressed with patient. Patient involved in shared decision making for management of medical issues. History and medications reviewed. Epic updated as needed Refills and/or prescriptions taken care of and meds adjusted as indicated after reviewed history, exam and labs. Health Maintenance reviewed. Updated record and/or ordered tests as recorded. Encouraged on efforts at healthy diet and regular exercise and adequate sleep. Needs to keep working on diet and exercise with lifestyle changes for effective weight loss as wellas prevention of DM, and control of BP and lipids. Last labs not bad. I spent a total of 52 minutes on the date of the service which included [id number] patient care, completing clinical documentation, performing a medically appropriate examination, counseling and educating the patient/family/caregiver, and ordering medications, tests, or procedures. Denise Garrett MD [facility] NoteHNO ID: [id number] Author: Navneet Godinez APRN.[employer] Service: ? Author Type: Nurse Practitioner Type: Progress Notes Filed: 07/21/2022 10:55 AM Note Text: This note was created using [employer]. Subjective Jet Bautista is a 77 year old male. 77 year old male with PMH GERD, gout, obesity and pre diabetic presents for complaints of back pain. Acute onset 3 weeks ago States pain is located in lower back and right hip. States pain will radiate down into leg He was seen by Dr. Raymundo 06/29/22 Xrays of back and hips were taken. He was prescribed steroids and flexeril States steroids provided some mild relief. States over the past few days it seems to be aggravated more. States pain worse in morning when waking up Endorses seems to return in evening. 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 Raymundo office nobody has called me back for 2 days Denies inability to ambulate. The history is provided by the patient. No quality assurance supervisor chassis was used. Back Pain This is a recurrent problem. The current episode started more than 1 week ago. The problem occurs daily. The problem has not changed since onset.The pain is associated with no known injury. The pain is present in the sacro-iliac joint and gluteal region. The quality of the pain is described as aching and stabbing. The pain radiates to the right thigh and right knee. The pain is at a severity of 6/10. The pain is moderate. The symptoms are aggravated by certain positions. Stiffness is present In the morning. Pertinent negatives include no chest pain, no fever, no numbness, no weight loss, no headaches, no abdominal pain, no abdominal swelling, no bowel incontinence, no perianal numbness, no bladder incontinence, no dysuria, no pelvic pain, no leg pain, no paresthesias, no paresis, no tingling and no weakness. He has tried muscle relaxants for the symptoms. The treatment provided mild relief. Risk factors include obesity, lack of exercise, poor posture and a history of osteoporosis. 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 ZINC ORAL Take by mouth. omeprazole (PRILOSEC) 20 mg capsule Take 1 capsule by mouth daily before breakfast. 1/2 hr before meal. allopurinol (ZYLOPRIM) 300 mg tablet Take 1 tablet by mouth once daily. ibuprofen (MOTRIN) 200 mg tablet Take 3 tablets by mouth three times daily as needed. (some days none, some days 9 pills) Aspirin 81 mg ORAL Tab Take one(1) tablet daily. therapeutic multivitamin ORAL Tab Take one(1) tablet daily. predniSONE (DELTASONE) 10 mg tablet Take 6 tabs for 3 days, then 4 tabs for 3 days, then 2 tabs for 3 days then 1 tab for 3 days with food. lidocaine (SALONPAS) 4 % patch Apply 1 Patch as directed once daily for 5 days. Remove patch after 12 hours FAMILY HISTORY Problem Relation Age of Onset Heart Mother Stroke Father COPD Brother Social History Tobacco Use Smoking status: Never Smokeless tobacco: Never Tobacco comments: 40 years ago and only smoked moderatley for 2months Substance Use Topics Alcohol use: No Drug use: No Review of Systems Constitutional: Negative for activity change, appetite change, chills, fever and weight loss. Eyes: Negative for pain, discharge, redness and itching. Respiratory: Negative for apnea, choking and chest tightness. Cardiovascular: Negative for chest pain. Gastrointestinal: Negative for abdominal pain and bowel incontinence. Genitourinary: Negative for bladder incontinence, dysuria and pelvic pain. Musculoskeletal: Positive for back pain. Skin: Negative for color change, pallor, rash and wound. Allergic/Immunologic: Negative for environmental allergies, food allergies and immunocompromised state. Neurological: Negative for tingling, weakness, numbness, headaches and paresthesias. Hematological: Negative for adenopathy. Does not bruise/bleed easily. Objective BP 128/74 Pulse 70 Temp 36.4 ?C (97.5 ?F) (Tympanic) Resp 16 Wt 119 kg (262 lb 6.4 oz) SpO2 95% BMI 37.65 kg/m? Physical Exam Vitals and nursing note reviewed. Constitutional: General: He is not in acute distress. Appearance: Normal appearance. He is obese. He is not ill-appearing, toxic-appearing or diaphoretic. HENT: Head: Normocephalic and atraumatic. Right Ear: External ear normal. Left Ear: External e (more content not included)...[facility] 07-21-2022 Instructions* Patient Instructions* Navneet Godinez APRN.CNP - 07/21/2022 10:44 AM EDT If you were not scheduled for your Physical Therapy Evaluation during your visit, please contact Rehabilitation and Sports Therapy: [phone]. The lotteries agent will assist you in selecting thelocation that will best meet your needs. documented in this encounterOhio[facility] History of Present illness Narrative* Navneet Godinez APRN.CNP - 07/21/2022 10:37 AM EDT This note was created using [employer]. Subjective Jet Bautista is a 77 year old male. 77 year old male with PMH GERD, gout, obesity and pre diabetic presents for complaints of back pain. Acute onset 3 weeks ago States pain is located in lower back and right hip. States pain will radiate down into leg He was seen by Dr. Raymundo 06/29/22 Xrays of back and hips were taken. He was prescribed steroids and flexeril States steroids provided some mild relief. States over the past few days it seems to be aggravated more. States pain worse in morning when waking up Endorses seems to return in evening. 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 Raymundo office nobody has called me back for 2 days Denies inability to ambulate. The history is provided by the patient. No quality assurance supervisor chassis was used. Back Pain This is a recurrent problem. The current episode started more than 1 week ago. The problem occurs daily. The problem has not changed since onset.The pain is associated with no known injury. The pain is present in the sacro-iliac joint and gluteal region. The quality of the pain is described as aching and stabbing. The pain radiates to the right thigh and right knee. The pain is at a severity of 6/10. The pain is moderate. The symptoms are aggravated by certain positions. Stiffness is present Inthe morning. Pertinent negatives include no chest pain, no fever, no numbness, no weight loss, no headaches, no abdominal pain, no abdominal swelling, no bowel incontinence, no perianal numbness, no bladder incontinence, no dysuria, no pelvic pain, no leg pain, no paresthesias, no paresis, no tingling and no weakness. He has tried muscle relaxants for the symptoms. The treatment provided mild relief. Risk factors include obesity, lack of exercise, poor posture and a history of osteoporosis. 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 ZINC ORAL Take by mouth. omeprazole (PRILOSEC) 20 mg capsule Take 1 capsule by mouth daily before breakfast. 1/2 hr before meal. allopurinol (ZYLOPRIM) 300 mg tablet Take 1 tablet by mouth once daily. ibuprofen (MOTRIN) 200 mg tablet Take 3 tablets by mouth three times daily as needed. (some days none, some days 9 pills) Aspirin 81 mg ORAL Tab Take one(1) tablet daily. therapeutic multivitamin ORAL Tab Take one(1) tablet daily. predniSONE (DELTASONE) 10 mg tablet Take 6 tabs for 3 days, then 4 tabs for 3 days, then 2 tabs for3 days then 1 tab for 3 days with food. lidocaine (SALONPAS) 4 % patch Apply 1 Patch as directed once daily for 5 days. Remove patch after 12 hours FAMILY HISTORY Problem Relation Age of Onset Heart Mother Stroke Father COPD Brother Social History Tobacco Use Smoking status: Never Smokeless tobacco: Never Tobacco comments: 40 years ago and only smoked moderatley for 2months Substance Use Topics Alcohol use: No Drug use: No Review of Systems Constitutional: Negative for activity change, appetite change, chills, fever and weight loss. Eyes: Negative for pain, discharge, redness and itching. Respiratory: Negative for apnea, choking and chest tightness. Cardiovascular: Negative for chest pain. Gastrointestinal: Negative for abdominal pain and bowel incontinence. Genitourinary: Negative for bladder incontinence, dysuria and pelvic pain. Musculoskeletal: Positive for back pain. Skin: Negative for color change, pallor, rash and wound. Allergic/Immunologic: Negative for environmental allergies, food allergies and immunocompromised state. Neurological: Negative for tingling, weakness, numbness, headaches and paresthesias. Hematological: Negative for adenopathy. Does not bruise/bleed easily. Objective BP 128/74 Pulse 70 Temp 36.4 C (97.5 F) (Tympanic) Resp 16 Wt 119 kg (262 lb 6.4 oz) QtG988% BMI 37.65 kg/m Physical Exam Vitals and nursing note reviewed. Constitutional: General: He is not in acute distress. Appearance: Normal appearance. He is obese. He is not ill-appearing, toxic- appearing or diaphoretic. HENT: Head: Normocephalic and atraumatic. Right Ear: External ear normal. Left Ear: External ear normal. Nose: Nose normal. No congestion or rhinorrhea. Mouth/Throat: Mouth: Mucous membranes are moist. Pharynx: Oropharynx is clear. No oropharyngeal exudate or posterior oropharyngeal erythema. Eyes: General: Right eye: No discharge. Left eye: No discharge. Extraocular Movements: Extraocular movements intact. Conjunctiva/sclera: Conjunctivae normal. Pupils: Pupils are equal, round, and reactive to light. Cardiovascular: Rate and Rhythm: Normal rate and regular rhythm. Pulses: Normal pulses. Heart sounds: Normal heart sounds. No murmur heard. No friction rub. No gallop. Pulmonary: Effort: Pulmonary effort is normal. No respiratory distress. Breath sounds: Normal breath sounds. No stridor. No wheezing, rhonchi or rales. Chest: Chest wall: No tenderness. Abdominal: General: Abdomen is flat. There is no distension. Palpations: Abdomen is soft. There is no mass. Tenderness: There is no abdominal tenderness. There is no guarding or rebound. Hernia: No hernia is present. Musculoskeletal: General: No swelling, tenderness, deformity or signs of injury. Normal range of motion. Cervical back: Normal range of motion and neck supple. No rigidity or tenderness. Right lower leg: No edema. Left lower leg: No edema. Comments: No midline cervical, thoracic, or lumbar midline TTP Negative straight leg raise B/L lower strength equal Skin intact Neuro intact. Lymphadenopathy: Cervical: No cervical adenopathy. Skin: General: Skin is warm and dry. Capillary Refill: Capillary refill takes less than 2 seconds. Coloration: Skin is not jaundiced or pale. Findings: No bruising, lesion or rash. Neurological: General: No focal deficit present. Mental Status: He is alert and oriented to person, place, and time. Cranial Nerves: No cranial nerve deficit. Sensory: No sensory deficit. Motor: No weakness. Coordination: Coordination normal. Gait: Gait normal. Deep Tendon Reflexes: Reflexes normal. Psychiatric: Mood and Affect: Mood normal. Behavior: Behavior normal. Thought Content: Thought content normal. Assessment and Plan ASSESSMENT/PLAN: 1. Lumbar radiculopathy - ICD9: 724.4, ICD10: M54.16 Onset 3 weeks ago Seen by Dr. Raymundo with xrays performed Presents today citing the pain is still there and that he is leaving for vacation on Sunday. Sciatica - Ice for localized tenderness - Warm moist heat for 20 min three times a day - Prednisone burst- see orders - PT consult - Patient given instructions use of medications as ordered, back care exercise program, weight loss, improved posture, and avoiding sleeping on a heating pad - Follow up in 2 days or sooner if symptoms persist or worsen Review of chart. Reveals he was seen 06/29/22 for [facility] [address] [place] [address] HIP, UNI W/ Pelvis 2-3 Views MR#: [id number] Acct: [id number] Name: JET BAUTISTA Rep #: [id number] : 1945 M 77 From: Wilman nava MD PCP: Dr. Uzair Raymundo DO Status: REG CLI Study: HIP, UNI W/ Pelvis 2-3 Views Date of Exam: 01/11 Exam# [id number] Ordering Dr: Uzair Raymundo DO STUDY: X-RAY - PELVIS AND RIGHT HIP REASON FOR EXAM: Male, 77 years old. HIP AND LEG PAIN TECHNIQUE: 3 views of the pelvis and hip. COMPARISON: None. FINDINGS: There is a non-specific bowel gas pattern. Normal visualized soft tissue structures. There is narrowing with cortical sclerosis and osteophyte formation of the sacroiliac joint consistent with degenerative osteoarthritic changes. Normal bilateral superior and inferior pubic rami. Normal pubic symphysis. Normal bilateral ischial tuberosities. There are osteoarthritic changes of the femoral head with marginal osteophyte formation. There is widening of the right femoral head suggestive of right femoral acetabular impingement. Normal acetabulum. There is moderate articular joint space narrowing of the hip. STUDY: X-RAY - LUMBAR SPINE REASON FOR EXAM: Male, 77 years old. BACK PAIN TECHNIQUE: 4 view(s) of the lumbar spine were obtained including oblique views. COMPARISON: None FINDINGS: There is an exaggerated lumbar lordosis. There is no substantial scoliosis. There is a normal alignment of the vertebrae. There is multilevel endplate spondylosis of the lumbar vertebrae. There is multi-level degenerative disc disease with multi-level disc space narrowing. Facet joint osteoarthritis. There is atherosclerotic calcification of the abdominal aorta without a demonstrated aneurysm. RAD/L/S Spine Min 4 Views IMPRESSION: Degenerative changes of the spine, as detailed above. Increased lordosis. Electronically Signed: Wilman Beaver MD at 14:47 EDT Reading Location ID and State: [address] [place] [address] , Service support , Navneet Godinez APRN.CNP [facility] [place] [facility]* Diagnosis Lumbar radiculopathy- Primary Thoracic or lumbosacral neuritis or radiculitis, unspecified documented [facility] [place] [facility]* Diagnosis Lumbar radiculopathy- Primary Thoracic or lumbosacral neuritis or radiculitis, unspecified Weakness of trunk musculature Muscle weakness (generalized) Pain of right lower extremity [facility] [place] [facility]* Diagnosis Acute midline low back pain with right-sided sciatica- Primary Class 2 obesity due to excess calories without serious comorbidity with body mass index (BMI) of 36.0 to 36.9 in adult IFG (impaired fasting glucose) Impaired fasting glucose Low HDL (under 40) Lipoprotein deficiencies Encounter for long-term current use of medication documented [facility] encounter [facility] [place] [facility]* Diagnosis TIA (transient ischemic attack)- Primary Unspecified transient cerebral ischemia Gastroesophageal reflux disease without esophagitis Esophageal reflux Hyperuricemia Other abnormal blood chemistry Encounter for long-term current use of medication Rash Rash and other nonspecific skin eruption documented [facility] encounter [facility] [place] [facility]* Diagnosis Gastroesophageal reflux disease without esophagitis Esophageal reflux [facility]* Diagnosis TIA (transient ischemic attack) Unspecified transient cerebral ischemia [facility] [place] [facility]* Diagnosis TIA (transient ischemic attack)- Primary Unspecified transient cerebral ischemia Episodic lightheadedness Dizziness and giddiness documented [facility] Summary Purpose Family History No Family History Records FoundNo Family History Records FoundNo Family History Records Found Advance Directives No Advanced Directives Records FoundNo Advanced Directives Records FoundNo Advanced Directives Records Found Reason for Referral Specialty Diagnoses / Procedures Referred By Contac t Referred To Contact PHYSICAL THERAPY Diagnoses Lumbar radiculopathy Procedures [facility] - CONSULT TO PHYSICAL THERAPY OFFICE/OUTPATIENT [facility] 60-74 MINUTES Navneet Godinez APRN.CAUL [employer] PULLER [address] [place] [address] Jing Johansen, PT [address] [place] [address] Referral ID Status Reason Start Date Expiration Date Visits Requested Visits Authorized [id number] Authorized Auto-Generat ed Referral 02/19/2022 02/18/2023 99 99 Specialty Diagnoses / Procedures Referred By Contac t Referred To Contact Neurology Diagnoses TIA (transient ischemic attack) Procedures CONSULT TO NEUROLOGY OFFICE/OUTPATIENT [facility] 60-74 MINUTES Denise Garrett MD [address] [place] [address] Referral ID Status Reason Start Date Expiration Date Visits Requested Visits Authorized [id number] Authorized PCP Requested Referral 09/01/2022 09/01/2023 1 1 Additional Source Comments (unrecognized sect ion and content) No Status Records FoundNo Status Records FoundNo Status Records Found INFORMATION SOURCE (unrecogn ized section and content) DATE CREATED AUTHOR AUTHOR'S ORGANIZ ATION 08/29/2022 [facility] nter DATE CREATED AUTHOR AUTHOR'S ORGANIZ ATION 01/10/2023 [facility] Source Comments (unrecognize d section and content) In the event this informatio n is protected by the Federal Confidentiality of Alcohol and Drug Abuse Patient Records regulations: The Federal rules restrict any use of the information to criminally investigate or prosecute any alcohol or drug abuse patient.[facility] Hospital[facility] the event this information is protected by the Federal Confidentiality of Alcohol and Drug Abuse Patient Records regulations: The Federal rules restrict any use of the information to criminally investigate or prosecute any alcohol or drug abuse patient.[facility] HospitalIn the event this information is protected by the Federal Confidentiality of Alcohol and Drug Abuse Patient Records regulations: The Federal rules restrict any use of the information to criminally investigate or prosecute any alcohol or drug abuse patient.[facility] HospitalIn the event this information is protected by the Federal Confidentiality of Alcohol and Drug Abuse Patient Records regulations: The Federal rules restrict any use of the information to criminally investigate or prosecute any alcohol or drug abuse patient.[facility] HospitalIn the event this information is protected by the Federal Confidentiality of Alcohol and Drug Abuse Patient Records regulations: The Federal rules restrict any use of the information to criminally investigate or prosecute any alcohol or drug abuse patient.[facility] HospitalIn the event this information is protected by the Federal Confidentiality of Alcohol and Drug Abuse Patient Records regulations: The Federal rules restrict any use of the information to criminally investigate or prosecute any alcohol or drug abuse patient.[facility] HospitalIn the event this information is protected by the Federal Confidentiality of Alcohol and Drug Abuse Patient Records regulations: The Federal rules restrict any use of the information to criminally investigate or prosecute any alcohol or drug abuse patient.[facility] HospitalIn the event this information is protected by the Federal Confidentiality of Alcohol and Drug Abuse Patient Records regulations: The Federal rules restrict any use of the information to criminally investigate or prosecute any alcohol or drug abuse patient.[facility] HospitalIn the event this information is protected by the Federal Confidentiality of Alcohol and Drug Abuse Patient Records regulations: The Federal rules restrict any use of the information to criminally investigate or prosecute any alcohol or drug abuse patient.[facility] HospitalIn the event this information is protected by the Federal Confidentiality of Alcohol and Drug Abuse Patient Records regulations: The Federal rules restrict any use of the information to criminally investigate or prosecute any alcohol or drug abuse patient.[facility] Reason for Visit (unrecogniz ed section and content) Reason Comments Physical Therapy Specialty Diagnoses / Procedures Referred By Contac t Referred To Contact PHYSICAL THERAPY Diagnoses Lumbar radiculopathy Procedures [facility] - CONSULT TO PHYSICAL THERAPY OFFICE/OUTPATIENT [facility] 60-74 MINUTES Navneet Godinez APRN.[employer] [address] [place] [address] Jing Johansen, PT [address] [place] [address] Referral ID Status Reason Start Date Expiration Date Visits Requested Visits Authorized [id number] Authorized Auto-Generat ed Referral 02/19/2022 02/18/2023 99 99 Reason Comments Left Hip Pain Reason Comments Appointment Physical therapy Reason Comments Opened In Error Reason Comments Neurologic Problem Reason Comments Hospital F/U Reason Comments Refill Request Reason Comments TIA Specialty Diagnoses / Procedures Referred By Contac t Referred To Contact Neurology Diagnoses TIA (transient ischemic attack) Procedures CONSULT TO NEUROLOGY OFFICE/OUTPATIENT [facility] 60-74 MINUTES Denise Garrett MD [address] [place] [address] Referral ID Status Reason Start Date Expiration Date V isits Requested Visits Authorized [id number] Closed PCP Requested Referral 09/01/2022 09/01/2023 1 1 Care Teams (unrecognized sec tion and content) Slip Tender Relationship Specialty Start Date End Date Denise Garrett MD [address] [facility] [place] [address] PCP - General Internal Medicine 02/07/16 Slip Tender Relationship Specialty Start Date End Date Denise Garrett MD [address] [facility] [place] [address] PCP - General Internal Medicine 02/07/16 Slip Tender Relationship Specialty Start Date End Date Denise Garrett MD [address] [facility] [place] [address] PCP - General Internal Medicine 02/07/16 Slip Tender Relationship Specialty Start Date End Date Denise Garrett MD [address] [facility] [place] [address] PCP - General Internal Medicine 02/07/16 Slip Tender Relationship Specialty Start Date End Date Dneise Garrett MD [address] [facility] [place] [address] PCP - General Internal Medicine 02/07/16 Slip Tender Relationship Specialty Start Date End Date Denise Garrett MD [address] [facility] [place] [address] PCP - General Internal Medicine 02/07/16 Slip Tender Relationship Specialty Start Date End Date Denise Garrett MD [address] [facility] [place] [address] PCP - General Internal Medicine 02/07/16 Slip Tender Relationship Specialty Start Date End Date Denise Garrett MD [address] [facility] [place] [address] PCP - General Internal Medicine 12/19/16 FOR RECORDS PERTAINING TO PATIENTS WHO ARE OR HAVE BEEN ENROLLED IN A CHEMICAL DEPENDENCY/SUBSTANCEABUSE PROGRAM, SOME INFORMATION MAY BE OMITTED. This clinical summary was aggregated from multiple sources. Caution should be exercised in using it in the provision of clinical care. This summary normalizes information from multiple sources, and as a consequence, information in this document may materially change the coding, format and clinical context of patient data. In addition, data may be omitted in some cases. CLINICAL DECISIONS SHOULD BE BASED ON THE PRIMARY CLINICAL RECORDS. [facility] [place] [facility]. provides no warranty or guarantee of the accuracy or completeness of information in this document.
[2023-03-27 08:17] LABS: D-Dimer Quantitative (DVT/PE) 0.38 FEU/ug/m (0.27-0.49)
[2023-03-27 10:03] LABS: Troponin-I HS 10 pg/mL (3.0-78.0)
[2023-03-27 10:41] VITALS: O2SAT 98
[2023-03-27 11:15] VITALS: BP 140/90; PULSE 56; RESP 18; O2SAT 99
== END 2023-03-27 11:19 | disposition home or self-care (01) ==
PROVIDERS: Emergency Provider Emergency Medicine; PCP Internal Medicine; Visit Provider Emergency Medicine
DX: R06.02 Shortness of breath (principal); I10 Essential (primary) hypertension; E78.00 Pure hypercholesterolemia, unspecified; I45.10 Unspecified right bundle-branch block; K21.9 Gastro-esophageal reflux disease without esophagitis
CPT/HCPCS: 71045; 80048; 83880; 84484; 85025; 85379; 87631; 93005; 99284; A4216

== ENCOUNTER 2023-12-30 05:48 | Observation (INO) | payer MEDICARE, BC, SELFPAY ==
[2023-12-30] VITALS (15 sets, daily range): BP systolic 119–180; BP diastolic 73–97; PULSE 54–87; RESP 14–22; TEMP 36.3–36.7; O2SAT 93–100; BMI 36.0; BMI 35.6
[2023-12-30 07:10] LABS: Basophil# 0.07 X10^3/uL; Basophil% 0.8 % (0-1); Eosinophil# 0.34 X10^3/uL; Eosinophils% 4.1 % (0-5); Hematocrit 44.7 % (40-54); Hemoglobin 14.9 g/dL (13.0-16.5); Lymphocyte % 13.2 % (19-41); Mean Corp Hgb Conc 33.3 g/dL (32-36); Mean Corpuscular Hgb 29.3 pg (27.0-32.0); Mean Platelet Vol. 10.6 fl (6.2-12.0); Monocyte# 0.76 X10^3/uL; Monocyte% 9.1 % (0-10); NRBC Flagged by Analyzer 0 % (0-5); Neutrophil # 5.98 X10^3/uL (2.7-7.7); Neutrophil % 72.1 % (47-70); Platelet Count 202 K/mm3 (150-450); RBC Distribution Width CV 13.5 % (11.6-14.6); RBC Distribution Width SD 43.2 fl (35.1-43.9); Red Blood Count 5.08 M/mm3 (4.6-6.2); White Blood Count 8.3 K/mm3 (4.4-11.0)
[2023-12-30] MEDS: Aspirin 81 MG TAB.CHEW 324 MG PO (07:11)
[2023-12-30 07:30] LABS: BNP,B-Type NATRIURETIC PEPTIDE 25.3 pg/mL (0-100)
[2023-12-30 07:32] LABS: Bacteria 0 SEEN /hpf (None Seen); Color, Urine Yellow (Yellow); Glucose, Dipstick Normal (Normal); Ketone-Dipstick Negative (Negative); Leukocyte Esterase-Dipstick Negative /ul (Negative); Mucous, Urine 0 SEEN /hpf (<or=2+); Nitrite-Dipstick Negative (Negative); Occult Blood-Urine Negative /ul (Negative); Protein-Dipstick 15 mg/dl (Negative); Red Blood Cells-Urine 0 SEEN /hpf (0-5); Squamous Epithelial Cells - UA 0 SEEN /hpf (0-5); Urine Bilirubin Dipstick Negative (Negative); Urine Clarity Clear (Clear); Urine Urobilinogen Normal (Normal); White Blood Cells 0 SEEN /hpf (0-5)
[2023-12-30 07:34] LABS: Anion Gap 6 (5-15); BUN 14 mg/dL (7-18); BUN/Creat Ratio 16.1 RATIO (10-20); Calcium,Total 8.9 mg/dL (8.5-10.1); Chloride 109 mmol/L (98-107); Creatinine, Serum 0.87 mg/dL (0.70-1.30); EST Glomerular Filtration Rate 90 mL/min (>60); Est Glom Filt Rate - Afr Amer 109 mL/min (>60); Estimated Creatinine Clearance 92.59 ml/min; Glucose 150 mg/dL (74-106); Sodium Level 141 mmol/L (136-145); Troponin-I HS (w/2H Reflex) 7 pg/mL (3.0-78.0)
[2023-12-30 08:23] LABS: D-Dimer Quantitative (DVT/PE) 0.27 FEU/ug/m (0.27-0.49)
[2023-12-30 09:04] LABS: Reflex Troponin-HS? (from REC) Y
[2023-12-30 09:13] LABS: Magnesium 1.9 mg/dL (1.6-2.6)
[2023-12-30 09:39] LABS: Troponin-I HS 9 pg/mL (3.0-78.0)
[2023-12-30] MEDS: Allopurinol 300 MG Tablet PO (11:41)
[2023-12-30] MEDS: Enoxaparin 40 MG/0.4 ML Syringe SC (11:42)
[2023-12-30] MEDS: Pantoprazole Sodium 20 MG Tablet PO (11:42)
[2023-12-30] MEDS: Clopidogrel Bisulfate 75 MG Tablet PO (11:44)
[2023-12-30 12:49] LABS: Troponin-I HS 7 pg/mL (3.0-78.0)
[2023-12-30] MEDS: Atorvastatin Calcium 40 MG Tablet PO (20:43)
[2023-12-31 01:30] VITALS: BP 136/85; PULSE 63; RESP 18; TEMP 36.7; O2SAT 97
[2023-12-31 03:21] VITALS: BMI 35.6
[2023-12-31 04:31] VITALS: BMI 35.6
[2023-12-31 05:30] VITALS: BP 148/75; PULSE 64; RESP 16; TEMP 36.7; O2SAT 97
[2023-12-31] MEDS: Clopidogrel Bisulfate 75 MG Tablet PO (06:33)
[2023-12-31] MEDS: Aspirin 81 MG TAB.CHEW PO (06:33)
[2023-12-31 06:41] LABS: Absolute Neutrophil Count 5.2 X10^3/uL (2.0-7.7); Basophil# 0.05 X10^3/uL; Basophil% 0.6 % (0-1); Eosinophil# 0.44 X10^3/uL; Eosinophils% 5.6 % (0-5); Hemoglobin 15.2 g/dL (13.0-16.5); Lymphocyte % 16.7 % (19-41); Mean Corp Hgb Conc 32.3 g/dL (32-36); Mean Corpuscular Hgb 28.7 pg (27.0-32.0); Mean Corpuscular Volume 88.7 fL (80-94); Mean Platelet Vol. 10.6 fl (6.2-12.0); Monocyte# 0.76 X10^3/uL; Monocyte% 9.8 % (0-10); NRBC Flagged by Analyzer 0 % (0-5); Neutrophil # 5.18 X10^3/uL (2.7-7.7); Neutrophil % 66.5 % (47-70); Platelet Count 197 K/mm3 (150-450); RBC Distribution Width CV 13.5 % (11.6-14.6); RBC Distribution Width SD 43.8 fl (35.1-43.9); White Blood Count 7.8 K/mm3 (4.4-11.0)
[2023-12-31 07:41] VITALS: BP 154/85; PULSE 62; RESP 18; TEMP 35.9; O2SAT 95
[2023-12-31 07:51] LABS: ALB/GLOB Ratio 1.1 RATIO (0.9-2.4); AST(SGOT) 18 U/L (15-37); Alanine Aminotransfer ALT/SGPT 14 U/L (16-61); Albumin, Serum 3.5 g/dL (3.2-5.0); Alkaline Phosphatase 91 U/L (45-117); Anion Gap 6 (5-15); BUN 12 mg/dL (7-18); BUN/Creat Ratio 12.8 RATIO (10-20); Calcium,Total 9.2 mg/dL (8.5-10.1); Chloride 107 mmol/L (98-107); Cholesterol 131 mg/dL (200); Creatinine, Serum 0.94 mg/dL (0.70-1.30); EST Glomerular Filtration Rate 83 mL/min (>60); Est Glom Filt Rate - Afr Amer 100 mL/min (>60); Estimated Creatinine Clearance 85.21 ml/min; Globulin 3.3 g/dL (2.2-4.2); Glucose 132 mg/dL (74-106); High Density Lipoprotein 35 mg/dL; Magnesium 1.9 mg/dL (1.6-2.6); Potassium 4.3 mmol/L (3.5-5.1); Protein, Total 6.8 g/dL (6.4-8.2); Sodium Level 140 mmol/L (136-145); Triglycerides 164 mg/dL; Very Low Density Lipoprotein 33 mg/dL (5-40)
[2023-12-31 12:04] VITALS: BP 148/93; PULSE 67; RESP 18; TEMP 35.9; O2SAT 95
[2023-12-31 12:04] LABS: Hemoglobin A1c 6.6 % (3.8-5.6)
[2023-12-31] MEDS: Allopurinol 300 MG Tablet PO (12:08)
[2023-12-31] MEDS: Pantoprazole Sodium 20 MG Tablet PO (12:08)
[2023-12-31 14:15] VITALS: BMI 35.6
[2023-12-31 15:52] VITALS: BP 127/86; PULSE 78; RESP 16; TEMP 36.2; O2SAT 95
== END 2023-12-31 15:52 | disposition home or self-care (01) ==
LOC: ED 08:05 → PCU 08:57
PROVIDERS: Admitting Provider Family Medicine; Emergency Provider Emergency Medicine; PCP Internal Medicine; Visit Provider Internal Medicine
DX: R27.0 Ataxia, unspecified (principal); M06.9 Rheumatoid arthritis, unspecified; E66.01 Morbid (severe) obesity due to excess calories; R07.89 Other chest pain; I10 Essential (primary) hypertension; E78.5 Hyperlipidemia, unspecified; Z79.02 Long term (current) use of antithrombotics/antiplatelets; R94.31 Abnormal electrocardiogram [ECG] [EKG]; R06.00 Dyspnea, unspecified; Z68.36 Body mass index [BMI] 36.0-36.9, adult; Z79.899 Other long term (current) drug therapy; K21.9 Gastro-esophageal reflux disease without esophagitis; M10.9 Gout, unspecified; Z86.73 Personal history of transient ischemic attack (TIA), and cerebral infarction without residual deficits; I44.0 Atrioventricular block, first degree
CPT/HCPCS: 36415; 70496; 70498; 70551; 71045; 78452; 80048; 80053; 80061; 81001; 83036; 83735; 83880; 84443; 84484; 85025; 85379; 92610; 93005; 93017; 94668; 94762; 96372; 97162; 97166; 99221; 99285; A9500; Q9967; A4216; G0378; J2785

== ENCOUNTER 2024-10-13 13:21 | Emergency (ER) | payer MEDICARE, BC, SELFPAY ==
[2024-10-13 13:24] VITALS: BP 125/91; PULSE 77; RESP 16; TEMP 36.4; O2SAT 100
[2024-10-13 15:23] VITALS: BP 138/97; PULSE 72; RESP 20; O2SAT 97
--- NOTE | 2024-10-13 15:57 | EX.ED.UPPERE ---
HPI History of Present Illness HPI Narrative: Patient is a 79-year-old male presenting to the emergency department for a left hand injury. Patient states that he was cleaning out a [place] with an excavator and a tree branch came through the window trapping his hand against the handle. Reports that his son cut the branch. He endorses some mild pain in his left hand. Denies any other injuries. Unknown last tetanus. Chief Complaint: Upper Extremity Injury [facility] Medical History Dysequilibrium Acute electrocardiogram changes Acute dyspnea Chest pressure Morbid obesity HLD (hyperlipidemia) HTN (hypertension) TIA (transient ischemic attack) 1st degree AV block GERD (gastroesophageal reflux disease) Impaired hearing Gout Rheumatoid arthritis Back pain Home Medications ?Medication ?Instructions ?Recorded ?Last Taken ?Type allopurinol 300 mg tablet 300 mg PO DAILY gout 12/23/18 08/30/20 History aspirin 81 mg chewable tablet 81 mg PO DAILY heart health 12/23/18 08/30/20 History [id number]-[id number]-[id number] 300 mcg-K 60 1 ea PO DAILY supplement 12/23/18 08/30/20 History mcg-lycop 600 mcg-lutein 300 mcg tablet omeprazole 20 mg capsule,delayed 1 tab PO DAILY acid reflux/heart 12/23/18 08/30/20 History release burn cholecalciferol (vitamin D3) 125 125 mcg PO DAILY supplement 08/30/20 08/30/20 History mcg (5,000 unit) tablet (Vitamin D3) mecobalamin (vitamin B12) 1,000 1,000 mcg PO DAILY supplement 08/30/20 08/30/20 History mcg chewable tablet (B12 Active) atorvastatin 40 mg tablet 40 mg PO QHS cholesterol #30 tabs 08/29/22 Unknown Rx clopidogrel 75 mg tablet 75 mg PO DAILY #21 tabs 08/29/22 Unknown Rx Allergy/AdvReac Type Severity Reaction Status Date / Time Penicillins (PCN) Allergy Unknown Verified 12/30/23 05:56 Sulfa (Sulfonamide Allergy Unknown Verified 12/30/23 05:56 Antibiotics) Family History Father CVA (cerebral vascular accident) Hypertension Mother CAD (coronary artery disease) Heart disease Other Kidney disease Surgical History History of abdominal surgery History of umbilical hernia repair H/O cataract removal with insertion of prosthetic lens History of left heart catheterization (08/31/20) Social History household members: spouse Smoking Status: Never smoker alcohol intake: never substance use type: does not use ROS ROS ED ROS Narrative see HPI EXAM Physical Exam Narrative Exam Narrative: Vital signs: Reviewed General: Alert and orientedx3. No acute distress HEENT: Head is normocephalic and atraumatic, sinuses nontender, pupils equal round and reactive. Nares are patent. Oropharynx and throat exams normal. Neck: Supple without lymphadenopathy nontender Cardiovascular: Regular rate and rhythm, no murmurs. No rubs or gallops. Normal S1 and S2 Respiratory: Clear to auscultation bilaterally. No wheezes, rales, rhonchi Abdominal: Soft and nontender. Normal bowel sounds. No guarding or rebound. Nonsurgical abdomen Extremities: Some mild swelling to the dorsal portion of the left hand with a large skin tear. Tenderness around the skin tear. Radial pulses intact bilaterally. Radial, median and ulnar motor and sensation intact. No tenderness to palpation of the fingers, volar portion of the hand, wrist or forearm. Neurological: Cranial nerves II through XII are grossly intact. Normal strength and sensation. Normal cerebellar function The rest of the physical exam is unremarkable Const Vital Signs: 10/13/24 13:24 10/13/24 15:23 Temperature 97.5 F L Temperature Source Temporal Pulse Rate 77 72 Respiratory Rate 16 20 H Blood Pressure 125/91 H 138/97 H Blood Pressure Mean 102 110 Pulse Ox 100 97 Oxygen Delivery Method Room Air Room Air MDM MDM MDM Narrative Medical decision making narrative: Patient is a 79-year-old male presenting to the emergency department for a left hand injury. He was seen and examined. Vitals are stable. Resting in chair comfortably no acute distress. X-ray of the hand was ordered. Tetanus was updated. Wound was copiously irrigated by myself with initially tap water and chlorhexidine. It was then irrigated with 500 cc of sterile water. No lacerations to repair. Bacitracin applied. It was dressed with gauze and patient given wound care instructions. X-ray with no fracture or dislocation. Patient updated on the negative x-ray. Instructed if he continues to have pain after a week he will need to follow-up with his primary care doctor for a repeat x-ray. Patient discharged from the Emergency Department. I do not feel that the patient's evaluation reveals any acute reason for admission at this time. I instructed them to either follow-up with their primary care physician or promptly return to the Emergency Department for reevaluation should symptoms worsen or new symptoms develop. I explained what symptoms would indicate the need to return to the emergency department. Shared decision making was used. The patient voiced understanding of the treatment plan and is agreeable with it. Impression Hand injury Skin tear History & Record Review Discussion w/independent historian: Patient and Significant other Discharge Plan Triage Chief Complaint: Upper Extremity Injury ED Provider: Isabell Mkceon Dx/Rx/DC Orders Clinical Impression: Skin tear Instructions: ED Skin Tear (Skin Avulsion) Prescriptions: No Action omeprazole 20 MG capsule,delayed release(DR/EC) 1 tab PO DAILY aspirin 81 MG tablet,chewable 81 mg PO DAILY allopurinol 300 MG tablet 300 mg PO DAILY [id number]-[id number]-[id number]-xnbbin 1 EACH tablet 1 ea PO DAILY cholecalciferol (vitamin D3) [Vitamin D3] 125 mcg (5,000 unit) Tablet 125 mcg PO DAILY mecobalamin (vitamin B12) [B12 Active] 1,000 mcg Tablet,Chewable 1,000 mcg PO DAILY clopidogrel 75 mg tablet 75 mg PO DAILY Qty: 21 0RF atorvastatin 40 mg tablet 40 mg PO QHS Qty: 30 0RF Primary Care Provider: Sunitha Garrett Referrals: Sunitha Garrett MD [Primary Care Provider] - 3-5 Days Activity Restrictions/Additional Instructions: Keep the wound clean and dry. Watch for signs of infection including redness, drainage or warmth. Follow-up with your primary care doctor in the next 3 to 5 days. If you continue to have pain in your hand you will need to follow-up x-ray. Return to the ED with any new or worsening symptoms. Print Language: Spanish Disposition Disposition: Home, Self Care
--- NOTE | 2024-10-13 16:05 | RAD_ITS ---
PROCEDURE: HAND MIN 3 VIEWS 10/13/2024 REASON FOR EXAM: INJURY, PAIN TECHNIQUE: HAND MIN 3 VIEWS Laterality: Left COMPARISON: Left 3rd finger study 08/28/2018. RAD/Hand Min 3 Views IMPRESSION: Soft tissue injury of the dorsum of the hand is seen. Moderate arthritic changes are seen throughout the fingers and 1st ray, with mu ltiple areas of joint space narrowing noted. Severe joint narrowing with osseous reactive changes including subchondral cyst formation seen of the scaphoid trapezial trapezoidal joint, and at least moderate joint narrowing is seen at the 1st car pal-metacarpal joint. Lesser degenerative changes are seen elsewhere in the wrist. No acute fracture or dislocation is seen. If clinical concern persists, short-term follow-up imaging may be obtained to r ule out a currently occult fracture. Reading Location: [place] [id number]
[2024-10-13 16:40] VITALS: BP 138/97; PULSE 72; RESP 20; TEMP 37; O2SAT 97
== END 2024-10-13 16:57 | disposition home or self-care (01) ==
PROVIDERS: Emergency Provider Student in an Organized Health Care Education/Training Program; PCP Internal Medicine; Visit Provider Student in an Organized Health Care Education/Training Program
DX: S61.412A Laceration without foreign body of left hand, initial encounter (principal); E78.5 Hyperlipidemia, unspecified; I10 Essential (primary) hypertension; K21.9 Gastro-esophageal reflux disease without esophagitis; W23.2XXA Caught, crushed, jammed or pinched between a moving and stationary object, initial encounter; Z23 Encounter for immunization
CPT/HCPCS: 73130; 90471; 90715; 99282